=== PATIENT | male | born 1970 | race Caucasian/White ===

== ENCOUNTER 2020-09-19 10:20 | Inpatient (IN) | payer OTHER ==
[2020-09-19] MEDS ORDERED: NICOTINE 21MG/24HR PATCH TRANSDERM STA (11:03)
[2020-09-19 11:24] LABS: Amphetamine Screen,Urine Not Detected (NotDetected); Barbiturate Screen,Urine Not Detected (NotDetected); Benzodiazepines Screen,Urine Not Detected (NotDetected); Cocaine Screen,Urine Not Detected (NotDetected); Methadone Screen, Urine Not Detected (NotDetected); Opiate Screen,Urine Not Detected (NotDetected); Oxycodone Screen, Urine Not Detected (NotDetected); Phencyclidine Screen,Urine Not Detected (NotDetected); Tricyclic Antidepressant,Urine Not Detected (NotDetected); Urn Cannabinoid Scrn Not Detected (NotDetected)
[2020-09-19] MEDS ORDERED: SODIUM CHLORIDE 0.9% 1,000 ML with MVI, ADULT NO.4 WITH VIT K 10 ML, THIAMINE 100 MG, F... IV ONE ×4 (11:30)
[2020-09-19 11:38] LABS: Basophils # (A) 0.2 k/uL (0-0.2); Basophils % (A) 3 %; Eosinophils # (A) 0.1 k/uL (0-0.7); Eosinophils % (A) 2 %; HCT 49.8 % (39.0-53.0); HGB 17.7 gm/dL (13.0-17.5); Lymphocytes # (A) 1.2 k/uL (1.0-4.8); Lymphocytes % (A) 21 %; MCH 31.1 pg (25.0-35.0); MCHC 35.5 g/dL (31.0-37.0); MCV 87.4 fL (80.0-100.0); Mean Platelet Volume 6.1; Monocytes # (A) 0.5 k/uL (0-1.0); Monocytes % (A) 9 %; Neutrophils # (A) 3.4 k/uL (1.3-7.7); Neutrophils % (A) 61 %; Platelet Count 262 k/uL (150-450); RBC 5.69 m/uL (4.30-5.90); RDW 12.3 % (11.5-15.5); WBC 5.5 k/uL (3.8-10.6)
[2020-09-19 11:47] LABS: ALT 43 U/L (4-49); AST 69 U/L (17-59); African American GFR (CKD) >90 (>60 ml/min/1.73 sqM); Albumin 4.4 g/dL (3.5-5.0); Alkaline Phosphatase 96 U/L (38-126); Anion Gap 14 mmol/L; Blood Urea Nitrogen 9 mg/dL (9-20); Carbon Dioxide 26 mmol/L (22-30); Chloride 101 mmol/L (98-107); Creatine Kinase 271 U/L (55-170); Glucose 104 mg/dL (74-99); Lipase 191 U/L (23-300); Non-African American GFR(CKD) >90 (>60 ml/min/1.73 sqM); Potassium 4.3 mmol/L (3.5-5.1); Sodium 141 mmol/L (137-145); Total Bilirubin 0.7 mg/dL (0.2-1.3); Total Protein 7.4 g/dL (6.3-8.2)
[2020-09-19 11:59] LABS: Alcohol 370 mg/dL
[2020-09-19] MEDS ORDERED: NALOXONE 0.4 MG/ML 1 ML VIAL IV PRN (14:35)
--- NOTE | 2020-09-19 14:35 | ED ---
Psych HPI - General Chief Complaint: Psychiatric Symptoms Stated Complaint: Mental health Time Seen by Provider: 09/19/20 10:20 Source: patient, RN notes reviewed Mode of arrival: ambulatory - History of Present Illness Initial Comments: This is a 50-year-old male history of depression and alcoholism who was brought in for evaluation today. He states he suicidal he states he did try to strangle himself last night he was a cord but was unsuccessful. He states he is very depressed and admits to be an alcoholic and wants to stop drinking. He also is appreciated go through withdrawal as with a 2 or tobacco. No other complaints he denies any other drugs at this time. MD Complaint: suicidal ideation, feels depressed, other - Related Data Home Medications Medication Instructions Recorded Confirmed Albuterol Sulfate [Ventolin HFA] 1 - 2 puff INHALATION RT-Q6H PRN 09/19/20 09/19/20 Disulfiram [Antabuse] 250 mg PO DAILY 09/19/20 09/19/20 Ergocalciferol [Vitamin D2] 50,000 unit PO Q7D 09/19/20 09/19/20 Venlafaxine HCl ER [Effexor Xr] 150 mg PO DAILY 09/19/20 09/19/20 busPIRone HCl [Buspar] 10 mg PO BID 09/19/20 09/19/20 hydrOXYzine HCL [Atarax] 50 mg PO TID 09/19/20 09/19/20 Allergies Allergy/AdvReac Type Severity Reaction Status Date / Time No Known Allergies Allergy Verified 09/19/20 11:52 Review of Systems ROS Statement: Those systems with pertinent positive or pertinent negative responses have been documented in the HPI. ROS Other: All systems not noted in ROS Statement are negative. Past Medical History Past Medical History: No Reported History History of Any Multi-Drug Resistant Organisms: None Reported Past Surgical History: Hernia Repair, Orthopedic Surgery Past Psychological History: Anxiety, Depression Smoking Status: Former smoker Past Alcohol Use History: Abuse, Daily Past Drug Use History: None Reported, Methamphetamine General Exam - General Exam Comments Initial Comments: This a well-developed well-nourished awake alert though somewhat lethargic male he is tearful during the evaluation he does have the smell of alcohol conjoiners on his breath Limitations: no limitations General appearance: alert, lethargic Head exam: Present: atraumatic, normocephalic, normal inspection Eye exam: Present: normal appearance, PERRL, EOMI. Absent: scleral icterus, conjunctival injection, periorbital swelling ENT exam: Present: normal exam, mucous membranes moist Neck exam: Present: normal inspection. Absent: tenderness, meningismus, lymphadenopathy Respiratory exam: Present: normal lung sounds bilaterally. Absent: respiratory distress, wheezes, rales, rhonchi, stridor Cardiovascular Exam: Present: regular rate, normal rhythm, normal heart sounds. Absent: systolic murmur, diastolic murmur, rubs, gallop, clicks GI/Abdominal exam: Present: soft, normal bowel sounds. Absent: distended, tenderness, guarding, rebound, rigid Extremities exam: Present: normal inspection, full ROM, normal capillary refill. Absent: tenderness, pedal edema, joint swelling, calf tenderness Back exam: Present: normal inspection Neurological exam: Present: alert, oriented X3, CN II-XII intact Psychiatric exam: Present: depressed, flat affect, suicidal ideation Skin exam: Present: warm, dry, intact, normal color. Absent: rash Course Vital Signs 09/19/20 10:38 Temperature 98.8 F Pulse Rate 97 Respiratory 18 Rate Blood Pressure 139/87 O2 Sat by Pulse 95 Oximetry Medical Decision Making - Medical Decision Making Patient initially had a bad level they're indicated intoxication he did demonstrate a markedly elevated alcohol level and lab workup. I did discuss the case with Dr. Reina patient be admitted for IV hydration and evaluation for potential withdrawal and psychiatric evaluation tomorrow. - Lab Data Result diagrams: 09/19/20 11:25 09/19/20 11:25 Lab Results 09/19/20 09/19/20 09/19/20 Range/Units 10:36 11:25 11:25 WBC 5.5 (3.8-10.6) k/uL RBC 5.69 (4.30-5.90) m/uL Hgb 17.7 H (13.0-17.5) gm/dL Hct 49.8 (39.0-53.0) % MCV 87.4 (80.0-100.0) fL MCH 31.1 (25.0-35.0) pg MCHC 35.5 (31.0-37.0) g/dL RDW 12.3 (11.5-15.5) % Plt Count 262 (150-450) k/uL MPV 6.1 Neutrophils % 61 % Lymphocytes % 21 % Monocytes % 9 % Eosinophils % 2 % Basophils % 3 % Neutrophils # 3.4 (1.3-7.7) k/uL Lymphocytes # 1.2 (1.0-4.8) k/uL Monocytes # 0.5 (0-1.0) k/uL Eosinophils # 0.1 (0-0.7) k/uL Basophils # 0.2 (0-0.2) k/uL Sodium 141 (137-145) mmol/L Potassium 4.3 (3.5-5.1) mmol/L Chloride 101 (98-107) mmol/L Carbon Dioxide 26 (22-30) mmol/L Anion Gap 14 mmol/L BUN 9 (9-20) mg/dL Creatinine 0.85 (0.66-1.25) mg/dL Est GFR (CKD-EPI)AfAm >90 (>60 ml/min/1.73 sqM) Est GFR (CKD-EPI)NonAf >90 (>60 ml/min/1.73 sqM) Glucose 104 H (74-99) mg/dL Calcium 9.0 (8.4-10.2) mg/dL Magnesium 2.0 (1.6-2.3) mg/dL Total Bilirubin 0.7 (0.2-1.3) mg/dL AST 69 H (17-59) U/L ALT 43 (4-49) U/L Alkaline Phosphatase 96 (38-126) U/L Creatine Kinase 271 H (55-170) U/L Total Protein 7.4 (6.3-8.2) g/dL Albumin 4.4 (3.5-5.0) g/dL Lipase 191 (23-300) U/L Urine Opiates Screen Not Detected (NotDetected) Ur Oxycodone Screen Not Detected (NotDetected) Urine Methadone Screen Not Detected (NotDetected) Ur Propoxyphene Screen Not Detected (NotDetected) Ur Barbiturates Screen Not Detected (NotDetected) U Tricyclic Antidepress Not Detected (NotDetected) Ur Phencyclidine Scrn Not Detected (NotDetected) Ur Amphetamines Screen Not Detected (NotDetected) U Methamphetamines Scrn Not Detected (NotDetected) U Benzodiazepines Scrn Not Detected (NotDetected) Urine Cocaine Screen Not Detected (NotDetected) U Marijuana (THC) Screen Not Detected (NotDetected) Serum Alcohol 370 H* mg/dL Disposition Clinical Impression: Depression, Suicidal ideation, Alcohol intoxication, Nicotine abuse, Dehydration Disposition: ADMITTED IP TO THIS [facility] Condition: Fair Referrals: None,Stated [Primary Care Provider] - 1-2 days
[2020-09-19] MEDS ORDERED: LORazepam 2 MG/ML INJ IV PRN (14:38)
[2020-09-19] MEDS ORDERED: THIAMINE 100 MG/ML 2 ML VIAL IM STA (14:38)
[2020-09-19] MEDS: LORazepam 2 MG/ML INJ IV PRN ×3 (14:46→20:37)
[2020-09-19] MEDS: SODIUM CHLORIDE 0.9% 1,000 ML IV SCH (14:49)
[2020-09-19] MEDS ORDERED: ALBUTEROL NEBULIZED 2.5 MG/3 ML INHALATION PRN (17:23)
--- NOTE | 2020-09-19 17:30 | P.HPIM ---
History of Present Illness H&P Date: 09/19/20 Chief Complaint: Suicidal, alcohol abuse The patient is a 50-year-old male with history of alcohol abuse depression states he was feeling more depressed and yesterday tried to hang himself. He states that this occurred at 1422 hrs. he tied a cord around his neck I was planning to strangle himself on the door however he became concerned that his brother would discover him so he did not go through with the action. He said he states that he drinks about 16-18 beers daily and the last time he tried to quit on his own and further was very difficult. He denied any seizures in the past. The patient presented to the emergency room he was noted to have an elevated alcohol level he was given a banana brought back and Ativan and hospitalized for further workup and management. He denies any nausea or vomiting any chest pain or shortness of breath. Review of Systems Complete review of system was done and negative unless stated above Past Medical History Past Medical History: No Reported History History of Any Multi-Drug Resistant Organisms: None Reported Past Surgical History: Hernia Repair, Orthopedic Surgery Past Psychological History: Anxiety, Depression Smoking Status: Former smoker Past Alcohol Use History: Abuse, Daily Past Drug Use History: None Reported, Methamphetamine Medications and Allergies Home Medications Medication Instructions Recorded Confirmed Type Albuterol Sulfate [Ventolin HFA] 1 - 2 puff INHALATION RT-Q6H PRN 09/19/20 09/19/20 History Disulfiram [Antabuse] 250 mg PO DAILY 09/19/20 09/19/20 History Ergocalciferol [Vitamin D2] 50,000 unit PO Q7D 09/19/20 09/19/20 History Venlafaxine HCl ER [Effexor Xr] 150 mg PO DAILY 09/19/20 09/19/20 History busPIRone HCl [Buspar] 10 mg PO BID 09/19/20 09/19/20 History hydrOXYzine HCL [Atarax] 50 mg PO TID 09/19/20 09/19/20 History Allergies Allergy/AdvReac Type Severity Reaction Status Date / Time No Known Allergies Allergy Verified 09/19/20 11:52 Physical Exam Vitals: Vital Signs Temp Pulse Resp BP Pulse Ox 09/19/20 14:49 103 H 18 125/71 95 09/19/20 10:38 98.8 F 97 18 139/87 95 Intake and Output 09/19/20 09/19/20 09/19/20 06:59 14:59 22:59 Other: Weight 83.915 kg - Constitutional General appearance: no acute distress - EENT Eyes: PERRLA - Respiratory Respiratory: bilateral: CTA - Cardiovascular Rhythm: regular - Gastrointestinal General gastrointestinal: normal bowel sounds - Integumentary Integumentary: flushed - Neurologic Neurologic: CNII-XII intact - Musculoskeletal Musculoskeletal: strength equal bilaterally - Psychiatric tremulous Psychiatric: A&O x's 3 Results CBC & Chem 7: 09/19/20 11:25 09/19/20 11:25 Labs: Abnormal Lab Results - Last 24 Hours (Table) 09/19/20 09/19/20 Range/Units 11:25 11:25 Hgb 17.7 H (13.0-17.5) gm/dL Glucose 104 H (74-99) mg/dL AST 69 H (17-59) U/L Creatine Kinase 271 H (55-170) U/L Serum Alcohol 370 H* mg/dL Assessment and Plan (1) Alcohol intoxication Narrative/Plan: Continue CIWA protocol, electrolyte repletion Current Visit: Yes Status: Acute Code(s): F10.929 - ALCOHOL USE, UNSPECIFIED WITH INTOXICATION, UNSPECIFIED SNOMED Code(s): 83247298 (2) Suicidal ideation Narrative/Plan: Patient how one-to-one sitter, suicide precautions, psychiatry to evaluate Current Visit: Yes Status: Acute Code(s): R45.851 - SUICIDAL IDEATIONS SNOMED Code(s): 8431113 (3) Nicotine abuse Narrative/Plan: Patient chews tobacco, nicotine. Patch when necessary as needed Current Visit: Yes Status: Acute Code(s): Z72.0 - TOBACCO USE SNOMED Code(s): 000358834 (4) Depression Narrative/Plan: Continue outpatient regiment await further input from psychiatry Current Visit: Yes Status: Acute Code(s): F32.9 - MAJOR DEPRESSIVE DISORDER, SINGLE EPISODE, UNSPECIFIED SNOMED Code(s): 57584364
[2020-09-19] MEDS: THIAMINE 100 MG TAB PO SCH (20:36)
[2020-09-19] MEDS: busPIRone HCl 10 MG TAB PO SCH (20:37)
[2020-09-20] MEDS: LORazepam 2 MG/ML INJ IV PRN ×4 (01:19→20:28)
[2020-09-20] MEDS: SODIUM CHLORIDE 0.9% 1,000 ML IV SCH ×2 (03:46→18:09)
[2020-09-20] MEDS: busPIRone HCl 10 MG TAB PO SCH ×2 (08:39→20:27)
[2020-09-20] MEDS: VENLAFAXINE HCL ER 150 MG CAP PO SCH (08:39)
[2020-09-20] MEDS: THIAMINE 100 MG TAB PO SCH ×2 (08:40→18:09)
[2020-09-20] MEDS ORDERED: ERGOCALCIFEROL 50,000 UNIT CAP PO SCH (09:00)
[2020-09-20] MEDS: NALTREXONE HCL 50 MG TAB PO SCH (11:08)
--- NOTE | 2020-09-20 11:36 | CONS ---
CONSULTATION DATE OF SERVICE: 09/20/2020 PURPOSE FOR CONSULTATION: Evaluate for alcohol use and depression issues. The patient made a suicide attempt. HISTORY OF PRESENTING ILLNESS: The patient is a 50-year-old male, he presented to the emergency room. He had tried on the day before in the afternoon to tie a cord around his neck to strangle himself. He got worried that his brother would discover him and so he did not go through with the action. He had been drinking and says he drank about 16-18 beers that led up to his coming to the ED. On admission, his alcohol level was 370. The patient gives a history of significant alcohol use throughout his adult life. He has had periods for up to 4 - 5 months where he has not drank. He said his last period of sobriety was in the summer of 2018. He had an accident June 29, 2019 where he fell off a ladder from about 20 feet. He broke his leg. He was on some pain medications in recovery. He then started drinking and got back into a regular daily drinking. He says that he can go periods of time where he does not drink, though if he even in a casual way, has 1 drink. He will start getting back into a very serious drinking or he can drink almost continuously for days. He said he will drink to where he will pass out and then wake up and continue to drink. He acknowledges that he has had significant stress issues relating to relationship problems. He was in a long distance relationship up until recently and said that relationship ended badly and may have been one significant factor leading to the suicide thinking he had. He said that he does not have thoughts of suicide, though when he drinks heavily some of the time, it can lead him into thinking that way. He has not had a past attempt to harm himself. He notes that he has been drinking since the around age 14 and started drinking in a more serious way in his early 20s. He notes that there was not alcohol issues in his immediate family, though his maternal grandfather was a heavy drinker. He also has an older brother who has alcohol issues as well. The patient denies use of marijuana or any other abusive substances. It is noted that the patient's living situation currently is uncertain. He had been living with his brother, though it is sounds as though the job he has versus where his brother lives was not a functional situation of late he had been living in a motel, though the rent he has paid ends on Wednesday. He is not sure what he will do after that. He indicates that 2 weeks ago he started in some individual counseling at [facility]. He says he has a very positive relationship with his counselor. He has started into some substance abuse treatment out an outpatient basis and says he wants to continue with that. We talked about the option of inpatient treatment, though he feels the outpatient situation is more positive for him. He was recently started on Effexor. His current dose is 150 mg a day. He does not feel that the medication has been helping him, though he tolerates the Effexor. Patient shared one significant grief issue he has had from early in his life when he was 10 years old, his 3-year-old cousin fell out of a second-story window and . The patient said that he was very attached to his cousin, more so than his own siblings and that he had tremendous grief from that which he believes was a factor leading him into drinking. since this admission. MENTAL STATUS EXAM: Patient was sitting up in bed. He gave fair eye contact, he was restless. It was noteworthy that he has significant tremor in his hands and arms. He answered questions with brief responses, then he would go on and talk extensively about issues in his personal life. His affect was anxious. Mood depressed, he was significantly distressed. There was no indication of thought disorder. He denied thoughts of harm at the time of the interview and said that he does not have any intent to harm himself other than when serious drinking comes into the picture. He was oriented and alert. ASSESSMENT: This 50-year-old male is diagnosed with alcohol dependence and acute alcohol withdrawal. He may also have underlying depression. I had an extensive discussion with the patient regarding alcohol withdrawal issues. I gave him a handout on the process of withdrawal expectations and time course of withdrawal, had also included a range of behavioral issues to help him manage early withdrawal. I will start the patient on naltrexone 50 mg a day. The patient did express interest in getting started on Vivitrol. He intends to continue with his outpatient counseling services. He will continue his medical admission for acute withdrawal. The patient's vital signs for the most part have been stable in the normal range with vital signs this morning including BP 129/86, pulse 87 and regular, temperature 98.4, respirations 16, oxygen saturation 96. MMODL / IJN: [id number] /
--- NOTE | 2020-09-20 15:00 | P.PN ---
Subjective Progress Note Date: 09/20/20 Objective - Vital Signs Vital signs: Vital Signs Temp 98 F 09/20/20 14:00 Pulse 69 09/20/20 14:00 Resp 16 09/20/20 14:00 BP 142/91 09/20/20 14:00 Pulse Ox 95 09/20/20 14:00 Intake & Output 09/19/20 09/20/20 09/20/20 18:59 06:59 18:59 Intake Total 1180 Output Total 0 Balance 1180 Weight 83.915 kg 83.915 kg Intake: Intake, IV Titration 940 Amount Sodium Chloride 0.9% 1, 300 000 ml @ 100 mls/hr IV . Q10H7M ONE with Mvi, Adult No.4 with Vit K 10 ml with Thiamine 100 mg with Folic Acid 1 mg Rx#: [id number] Sodium Chloride 0.9% 1, 640 000 ml @ 80 mls/hr IV . [id number] ALEXANDER Rx#:[id number] Oral 240 Output: Urine 0 - Constitutional General appearance: Present: no acute distress - Respiratory Respiratory: bilateral: CTA - Cardiovascular Rhythm: regular - Gastrointestinal General gastrointestinal: Present: normal bowel sounds - Integumentary Integumentary: Present: normal - Neurologic Neurologic Comment(s): Tremulous - Psychiatric Psychiatric Comment(s): Feeling jittery - Labs CBC & Chem 7: 09/19/20 11:25 09/19/20 11:25 Assessment and Plan (1) Alcohol intoxication Narrative/Plan: Alcohol withdrawal syndrome complaining of nausea today continue CIWA protocol Current Visit: Yes Status: Acute Code(s): F10.929 - ALCOHOL USE, UNSPECIFIED WITH INTOXICATION, UNSPECIFIED SNOMED Code(s): 13477324 (2) Suicidal ideation Narrative/Plan: Appreciate psychiatry input he states the patient is no longer suicidal he will have outpatient follow-up Current Visit: Yes Status: Acute Code(s): R45.851 - SUICIDAL IDEATIONS SNOMED Code(s): 7573806 (3) Nicotine abuse Narrative/Plan: The patient was counseled nicotine patch as needed patient has a history of chewing tobacco Current Visit: Yes Status: Acute Code(s): Z72.0 - TOBACCO USE SNOMED Code(s): 028048095 (4) Depression Current Visit: Yes Status: Acute Code(s): F32.9 - MAJOR DEPRESSIVE DISORDER, SINGLE EPISODE, UNSPECIFIED SNOMED Code(s): 02264013
[2020-09-21] MEDS: LORazepam 2 MG/ML INJ IV PRN ×6 (01:46→20:17)
[2020-09-21] MEDS: busPIRone HCl 10 MG TAB PO SCH ×2 (09:08→20:16)
[2020-09-21] MEDS: THIAMINE 100 MG TAB PO SCH ×2 (09:08→18:17)
[2020-09-21] MEDS: NALTREXONE HCL 50 MG TAB PO SCH (09:08)
[2020-09-21] MEDS: VENLAFAXINE HCL ER 150 MG CAP PO SCH (09:08)
[2020-09-21] MEDS: SODIUM CHLORIDE 0.9% 1,000 ML IV SCH ×2 (09:28→19:57)
[2020-09-21 12:35] LABS: African American GFR (CKD) 128.4 (60.0-200.0); BUN/Creat Ratio 11.43 Ratio (12.00-20.00); Calcium 8.9 mg/dL (8.7-10.3); Non-African American GFR(CKD) 110.8 (60.0-200.0); Potassium 3.9 mmol/L (3.5-5.5)
[2020-09-21 15:46] VITALS: RESP 18
[2020-09-22] MEDS: LORazepam 2 MG/ML INJ IV PRN ×6 (02:31→21:25)
[2020-09-22] MEDS: SODIUM CHLORIDE 0.9% 1,000 ML IV SCH ×2 (04:57→13:46)
[2020-09-22] MEDS: THIAMINE 100 MG TAB PO SCH ×2 (07:12→16:53)
[2020-09-22] MEDS: FOLIC ACID 1 MG TAB PO SCH (07:13)
[2020-09-22] MEDS: busPIRone HCl 10 MG TAB PO SCH ×2 (07:13→21:25)
[2020-09-22] MEDS: NALTREXONE HCL 50 MG TAB PO SCH (09:44)
[2020-09-22] MEDS: VENLAFAXINE HCL ER 150 MG CAP PO SCH (09:44)
[2020-09-22] MEDS ORDERED: LORazepam 2 MG/ML INJ IV PRN (11:13)
--- NOTE | 2020-09-22 14:49 | P.PN ---
Subjective Progress Note Date: 09/21/20 ([facility] er charting seen at 1230) Principal diagnosis: ETOH abuse Patient's 50-year-old male with past medical history who presented to the ER with complaints of suicidal ideation and alcohol intoxication. In the ER he underwent an extensive evaluation. His son have an alcohol level of 370. He was subsequently admitted for mental health evaluation and impending withdrawal. He was placed on CIWA protocol, thiamine, and folic acid. He was seen by mental health and determined appropriate for outpatient follow-up as he is no longer suicidal and alcohol was out of his system. He is also started on naltrexone to help with alcohol cravings. On the morning of 09/21 he continued to need IV Ativan. He was unsure of where he could live upon discharge. He was also asking for additional resources for alcohol abuse. Patient seen and examined at bedside. He reports increased anxiety and tremors. Denies any chest pain or shortness of breath. Reports headache. General: non toxic, no distress, appears at stated age Derm: warm, dry Head: atraumatic, normocephalic, symmetric Eyes: EOMI, no lid lag, anicteric sclera Mouth: no lip lesion, mucus membranes moist Cardiovascular: S1S2 reg, no murmur, positive posterior tibial pulse bilateral, Lungs: CTA bilateral, no rhonchi, no rales , no accessory muscle use Abdominal: soft, nontender to palpation, no guarding, no appreciable organomegaly Ext: no gross muscle atrophy, no edema, no contractures Neuro: CN II-XI grossly intact, no focal neuro deficits, appears to have a tremor with arms outstretched however when he places your hand under his tremor dissipated, he reports that he palms however this is not verified on physical exam Psych: Alert, oriented, stuporous affect and unable to maintain appropriate eye contact, quickly falls back asleep Alcohol withdrawal -CIWA protocol -Thiamine and folic acid -Decrease Ativan dosing as patient appears partially sedated Alcohol abuse -Cessation -Social work to give patient resources Depression -Seen by psychiatry and cleared for discharge -Continue with [facility] and [facility] Patient informed that he will be discharged tomorrow on that he needs to find a place to stay or he will be discharged to the long term. DVT prophylaxis: SCDs Discussed with: patient Anticipated discharge: in AM Anticipated discharge place: home A total of 25 minutes was spent on the care of this complex patient more than 50% of the time was spent in counseling and care coordination. Objective - Vital Signs Vital signs: Vital Signs Temp 98.4 F 09/21/20 14:00 Pulse 71 09/21/20 14:00 Resp 18 09/21/20 14:00 BP 141/92 09/21/20 14:00 Pulse Ox 95 09/21/20 14:00 Intake & Output 09/21/20 09/21/20 09/22/20 06:59 18:59 06:59 Intake Total 640 640 Balance 640 640 Intake: IV 640 Sodium Chloride 0.9% 1, 640 000 ml @ 80 mls/hr IV . [id number] ALEXANDER Rx#:[id number] Intake, IV Titration 640 Amount Sodium Chloride 0.9% 1, 640 000 ml @ 80 mls/hr IV . [id number] ALEXANDER Rx#:[id number] Other: Voiding Method Urinal Urinal # Voids 1 - Labs CBC & Chem 7: 09/19/20 11:25 09/21/20 08:19 Labs: Abnormal Lab Results - Last 24 Hours (Table) 09/21/20 Range/Units 08:19 BUN 8.0 L (9.0-27.0) mg/dL BUN/Creatinine Ratio 11.43 L (12.00-20.00) Ratio
--- NOTE | 2020-09-22 15:00 | P.PN ---
Subjective Progress Note Date: 09/22/20 (ozzy limon seen at 1130) Principal diagnosis: ETOH abuse Patient's 50-year-old male with past medical history who presented to the ER with complaints of suicidal ideation and alcohol intoxication. In the ER he underwent an extensive evaluation. His son have an alcohol level of 370. He was subsequently admitted for mental health evaluation and impending withdrawal. He was placed on CIWA protocol, thiamine, and folic acid. He was seen by mental health and determined appropriate for outpatient follow-up as he is no longer suicidal and alcohol was out of his system. He is also started on naltrexone to help with alcohol cravings. On the morning of 09/21 he continued to need IV Ativan. He was unsure of where he could live upon discharge. He was also asking for additional resources for alcohol abuse. Patient seen and examined at bedside. His main complaint continues to be anxiety. + tremors, + nauseam + facial pain that radiates to his head, General: non toxic, no distress, appears at stated age Derm: warm, dry Head: atraumatic, normocephalic, symmetric Eyes: EOMI, no lid lag, anicteric sclera Mouth: no lip lesion, mucus membranes moist Cardiovascular: S1S2 reg, no murmur, positive posterior tibial pulse bilateral, Lungs: CTA bilateral, no rhonchi, no rales , no accessory muscle use Abdominal: soft, nontender to palpation, no guarding, no appreciable organomegaly Ext: no gross muscle atrophy, no edema, no contractures Neuro: CN II-XI grossly intact, no focal neuro deficits, appears to have a tremor with arms outstretched however when he places your hand under his tremor dissipated Psych: Alert, oriented, stuporous affect and unable to maintain appropriate eye contact, quickly falls back asleep Alcohol withdrawal -CIWA protocol -Thiamine and folic acid -Decrease Ativan dosing again -naltrexone Alcohol abuse -Cessation -Social work to give patient resources Depression -Seen by psychiatry and cleared for discharge -Continue with [facility] Patient informed that he will be discharged tomorrow on that he needs to find a place to stay or he will be discharged to the custodial. DVT prophylaxis: SCDs Discussed with: patient Anticipated discharge: in AM Anticipated discharge place: home A total of 25 minutes was spent on the care of this complex patient more than 50% of the time was spent in counseling and care coordination. Objective - Vital Signs Vital signs: Vital Signs Temp 97.9 F 09/22/20 08:00 Pulse 61 09/22/20 08:00 Resp 18 09/22/20 08:00 BP 126/78 09/22/20 08:00 Pulse Ox 95 09/22/20 08:00 Intake & Output 09/21/20 09/22/20 09/22/20 18:59 06:59 18:59 Intake Total 640 1440 Output Total 400 Balance 640 1440 -400 Intake: IV 640 Sodium Chloride 0.9% 1, 640 000 ml @ 80 mls/hr IV . [id number] ALEXANDER Rx#:[id number] Intake, IV Titration 960 Amount Sodium Chloride 0.9% 1, 960 000 ml @ 80 mls/hr IV . [id number] ALEXANDER Rx#:[id number] Oral 480 Output: Urine 400 Other: Voiding Method Urinal Urinal # Voids 2 - Labs CBC & Chem 7: 09/19/20 11:25 09/21/20 08:19
[2020-09-22 21:22] VITALS: TEMP 97.8
[2020-09-23] MEDS: SODIUM CHLORIDE 0.9% 1,000 ML IV SCH (05:13)
[2020-09-23 07:46] VITALS: BP 122/82; PULSE 71
[2020-09-23] MEDS: busPIRone HCl 10 MG TAB PO SCH (08:13)
[2020-09-23] MEDS: FOLIC ACID 1 MG TAB PO SCH (08:13)
[2020-09-23] MEDS: VENLAFAXINE HCL ER 150 MG CAP PO SCH (08:13)
[2020-09-23] MEDS: NALTREXONE HCL 50 MG TAB PO SCH (08:13)
[2020-09-23] MEDS: THIAMINE 100 MG TAB PO SCH (08:13)
--- NOTE | 2020-09-23 15:54 | P.DS ---
Providers Date of admission: 09/19/20 14:35 Expected date of discharge: 09/23/20 Attending physician: Margot Cain MD Consults: 09/19/20 14:36 Consult Physician Routine Consulting Provider: Elbert Kaur Consult Reason/Comments: Suicidal and depression Do you want consulting provider notified?: Yes, Notify in am Primary care physician: Stated None Hospital Course: Discharge Diagnosis: ETOH intoxic and then withdrawal ETOH abuse Depression, suicidal ideation cleared when alcohol level normalized. Hospital Course: Patient's 50-year-old male with past medical history who presented to the ER with complaints of suicidal ideation and alcohol intoxication. In the ER he underwent an extensive evaluation. His son have an alcohol level of 370. He was subsequently admitted for mental health evaluation and impending withdrawal. He was placed on CIWA protocol, thiamine, and folic acid. He was seen by mental health and determined appropriate for outpatient follow-up as he is no longer suicidal and alcohol was out of his system. He is also started on naltrexone to help with alcohol cravings. On the morning of 09/21 he continued to need IV Ativan. His ativan needs slowly decreased. He was determiend stable for discharge. [facility]. Patient seen and examined at bedside. No chest pain, no nausea, no vomiting. Still not feeling back to normal. Vital signs reviewed and stable. General: non toxic, no distress, appears at stated age Derm: warm, dry Head: atraumatic, normocephalic, symmetric Eyes: EOMI, no lid lag, anicteric sclera Mouth: no lip lesion, mucus membranes moist Cardiovascular: S1S2 reg, no murmur, positive posterior tibial pulse bilateral, Lungs: CTA bilateral, no rhonchi, no rales , no accessory muscle use Abdominal: soft, nontender to palpation, no guarding, no appreciable organomegaly Ext: no gross muscle atrophy, no edema, no contractures Neuro: CN II-XI grossly intact, no focal neuro deficits Psych: Alert, oriented, appropriate affect, no halluciantion, no tremors, no nausea. A total of 35 minutes of time were spent preparing this complex discharge summary . Patient Condition at Discharge: Fair Plan - Discharge Summary Discharge Rx Participant: No New Discharge Prescriptions: New RX: Folic Acid 1 mg PO DAILY #14 tab RX: Naltrexone HCl [Revia] 50 mg PO DAILY #14 tab RX: Thiamine [Vitamin B-1] 100 mg PO BID-W/MEALS #28 tab Continue RX: busPIRone HCl [Buspar] 10 mg PO BID RX: Venlafaxine HCl ER [Effexor XR] 150 mg PO DAILY RX: hydrOXYzine HCL [Atarax] 50 mg PO TID RX: Ergocalciferol [Vitamin D2 (DRISDOL)] 50,000 unit PO Q7D RX: Albuterol Sulfate [Ventolin HFA] 1 - 2 puff INHALATION RT-Q6H PRN PRN Reason: Shortness Of Breath Discontinued Disulfiram [Antabuse] 250 mg PO DAILY Discharge Medication List RX: Albuterol Sulfate [Ventolin HFA] 1 - 2 puff INHALATION RT-Q6H PRN 09/19/20 [History] RX: Ergocalciferol [Vitamin D2 (DRISDOL)] 50,000 unit PO Q7D 09/19/20 [History] RX: Venlafaxine HCl ER [Effexor XR] 150 mg PO DAILY 09/19/20 [History] RX: busPIRone HCl [Buspar] 10 mg PO BID 09/19/20 [History] RX: hydrOXYzine HCL [Atarax] 50 mg PO TID 09/19/20 [History] RX: Folic Acid 1 mg PO DAILY #14 tab 09/23/20 [Rx] RX: Naltrexone HCl [Revia] 50 mg PO DAILY #14 tab 09/23/20 [Rx] RX: Thiamine [Vitamin B-1] 100 mg PO BID-W/MEALS #28 tab 09/23/20 [Rx] Follow up Appointment(s)/Referral(s): [facility] - 1 Week (Please call office to shiela hagan appointment) Patient Instructions/Handouts: Depression (DC), Abuse of Alcohol (DC) Activity/Diet/Wound Care/Special Instructions: Activity: as tolerated Diet: regular Special Instructions: You will need a primary care physician to keep you nalrextone going to help with Alcohol cravings. Discharge Disposition: HOME SELF-CARE
== END 2020-09-23 15:07 | disposition home or self-care (01) | DRG 897 ==
LOC: EC 10:20 → 6NMEDSUR 14:35 → 4SSUR 15:16
PROVIDERS: ADMIT Internal Medicine; ATTEND Internal Medicine
DX: F10.229 Alcohol dependence with intoxication, unspecified (principal); R45.851 Suicidal ideations; E86.0 Dehydration; Y90.8 Blood alcohol level of 240 mg/100 ml or more; F32.9 Major depressive disorder, single episode, unspecified; F41.9 Anxiety disorder, unspecified; F17.210 Nicotine dependence, cigarettes, uncomplicated; Z79.899 Other long term (current) drug therapy; Z98.890 Other specified postprocedural states
CPT/HCPCS: 36415; 80048; 80053; 80306; 80320; 82075; 82550; 83690; 83735; 85025; 96365; 96366; 96372; 96375; 96376; 99285

== ENCOUNTER 2021-04-28 17:07 | Emergency (ER) | payer OTHER ==
[2021-04-28] MEDS ORDERED: ASPIRIN 81 MG PO STA (17:43)
[2021-04-28] MEDS ORDERED: SODIUM CHLORIDE 0.9% 1,000 ML IV STA (17:43)
[2021-04-28] MEDS ORDERED: ONDANSETRON 4 MG/2 ML VIAL IVP STA (17:43)
[2021-04-28] MEDS ORDERED: LORazepam 2 MG/ML INJ IV PRN ×2 (17:44)
[2021-04-28] MEDS ORDERED: KETOROLAC 15 MG/ML 1 ML VIAL IVP STA (17:44)
[2021-04-28] MEDS ORDERED: THIAMINE 100 MG/ML 2 ML VIAL IM STA (17:44)
--- NOTE | 2021-04-28 18:09 | ED ---
General Adult HPI - General Source: patient, EMS, RN notes reviewed, old records reviewed Mode of arrival: EMS <Gage Li - Last Filed: 04/28/21 23:40> <Beltran Parkinson - Last Filed: 04/29/21 12:12> - General Chief complaint: Psychiatric Symptoms Stated complaint: CHest Pain Time Seen by Provider: 04/28/21 17:17 - History of Present Illness Initial comments: Patient is a 50-year-old male with past medical history remarkable for chronic alcohol abuse, anxiety, depression, psychiatric history, alcohol withdrawals presents emergency department after being seen in psychiatry clinic earlier today. Patient endorses drinking alcohol today. He also endorses left-sided chest pain that is nonradiating that has resolved since earlier. This causes a sharp achy sensation that is present when he becomes nervous. He is also endorsing nausea and vomiting every morning. Denies any current abdominal pain, chest pain. Denies any dyspnea. States he is currently drunk. He has gone through alcohol withdrawals in the past. He does endorse some mild shaking right now. Patient endorses suicidal ideations, but denies attempts or plans. Patient denies any homicidal ideations, attempts, plans. Patient denies any visual or auditory hallucinations. Patient presents for psychiatric evaluation and evaluation of his chest pain. (Gage Li) - Related Data Home Medications Medication Instructions Recorded Confirmed Venlafaxine HCl [Effexor XR] 75 mg PO DAILY 04/28/21 04/28/21 Allergies Allergy/AdvReac Type Severity Reaction Status Date / Time No Known Allergies Allergy Verified 04/28/21 19:33 Review of Systems ROS Other: All systems not noted in ROS Statement are negative. <aGge Li - Last Filed: 04/28/21 23:40> ROS Other: All systems not noted in ROS Statement are negative. <Beltran Parkinson - Last Filed: 04/29/21 12:12> ROS Statement: Those systems with pertinent positive or pertinent negative responses have been documented in the HPI. Review of Systems: CONST: Denies fever EYES: Denies blurry vision ENT: Denies nasal congestion C/V: Denies current chest pain RESP: Denies shortness of breath GI: Denies abdominal pain : Denies dysuria SKIN: Denies rash. MSK: Denies joint pain. NEURO: Denies headache PSYCH: Denies homicidal ideations/plans/attempts. Denies visual or auditory hallucinations. Endorses suicidal ideation as well as plan to jump in the river. Denies attempts. (Gage Li) Past Medical History Past Medical History: No Reported History History of Any Multi-Drug Resistant Organisms: None Reported Past Surgical History: Hernia Repair, Orthopedic Surgery Past Psychological History: Anxiety, Depression Smoking Status: Never smoker Past Alcohol Use History: Abuse, Daily Past Drug Use History: None Reported, Methamphetamine <Gage Li - Last Filed: 04/28/21 23:40> General Exam <Gage Li - Last Filed: 04/28/21 23:40> - General Exam Comments Initial Comments: General: Appears acutely intoxicated but in no acute distress otherwise. HEAD: Normal with no signs of head trauma. EYES: PERRLA, EOMI, conjunctiva normal, no discharge. Pupils are 3 mm and equally reactive bilaterally. ENT: Hearing grossly intact, normal oropharynx. RESPIRATORY: Clear breath sounds bilaterally. No wheezes, rales, or rhonchi. C/V: Regular rate and rhythm. S1 and S2 auscultated, no edema, peripheral puls es 2+ and intact throughout ABD: Abd is soft, nontender, nondistended EXT: Normal range of motion, no obvious deformity SKIN: No rashes or lesions observed on exposed skin. NEURO: Alert and oriented x 4. Cranial nerves II-XII intact. No focal sensory or strength deficits. Patient appears intoxicated with alcohol. He has mild hand tremors. (Gage Li) Course <Beltran Parkinson - Last Filed: 04/29/21 12:12> Vital Signs 04/28/21 04/28/21 04/29/21 17:16 22:03 06:27 Temperature 97.9 F 97.6 F Pulse Rate 83 88 60 Respiratory 20 16 16 Rate Blood Pressure 148/106 138/94 125/82 O2 Sat by Pulse 96 98 96 Oximetry 04/29/21 07:31 Temperature 98.6 F Pulse Rate 67 Respiratory 18 Rate Blood Pressure 120/65 O2 Sat by Pulse 92 L Oximetry - Reevaluation(s) Reevaluation #1: 04/29/21 12:05 The patient was seen and evaluated by the EPS service stated he plan is in place he will be discharged he'll also be placed on medication for alcohol withdrawal. (Beltran Parkinson) Medical Decision Making - Lab Data Result diagrams: 04/28/21 18:33 04/28/21 18:33 - EKG Data -: EKG Interpreted by Me <Gage Li - Last Filed: 04/28/21 23:40> - Lab Data Result diagrams: 04/28/21 18:33 04/28/21 18:33 <Beltran Parkinson - Last Filed: 04/29/21 12:12> - Medical Decision Making Based on the patient's presentation and physical exam, he does appear acutely intoxicated with alcohol is expressing suicidal ideations. Therefore patient will be placed in green scrubs. He is complaining of chest pain and therefore we he will obtain a cardiac workup. This includes troponin, basic labs, EKG, chest x-ray. He will be medically treated with by mouth last as well as IV Zofran, 1 L fluid bolus. Patient does have mild tremors, possibly early onset of a cultural will therefore be admission Ativan and Ativan order set for withdrawal will be ordered with [facility] protocol. Patient will be placed on continuous cardiac monitoring. Patient's EKG was normal without any signs of acute ischemia. Chest x-ray revealed no acute cardiopulmonary process. Laboratory studies are remarkable fo r a mildly low white count of 3.4. The remainder of the labs are unremarkable. Patient does have very mildly elevated LFTs of 131 and 98. Patient is acutely intoxicated with alcohol level 337. At this time the patient is medically clear. He is otherwise asymptomatic. He is not in extreme withdrawals at this time but Ativan withdrawal protocol is ordered. Disposition is pending psychiatric evaluation following sobriety. (Gage Li) - Lab Data Lab Results 04/28/21 04/28/21 04/28/21 Range/Units 18:33 18:33 18:33 WBC 3.4 L (3.8-10.6) k/uL RBC 4.93 (4.30-5.90) m/uL Hgb 15.3 (13.0-17.5) gm/dL Hct 46.4 (39.0-53.0) % MCV 94.1 (80.0-100.0) fL MCH 31.0 (25.0-35.0) pg MCHC 33.0 (31.0-37.0) g/dL RDW 15.1 (11.5-15.5) % Plt Count 187 (150-450) k/uL MPV 6.5 Neutrophils % (Manual) 44 % Lymphocytes % (Manual) 42 % Monocytes % (Manual) 13 % Eosinophils % (Manual) 1 % Neutrophils # (Manual) 1.50 (1.3-7.7) k/uL Lymphocytes # (Manual) 1.43 (1.0-4.8) k/uL Monocytes # (Manual) 0.44 (0-1.0) k/uL Eosinophils # (Manual) 0.03 (0-0.7) k/uL Nucleated RBCs 0 (0-0) /100 WBC Manual Slide Review Performed Poikilocytosis (manual Present PT 9.8 (9.0-12.0) sec INR 0.9 (<1.2) APTT 22.5 (22.0-30.0) sec Sodium (137-145) mmol/L Potassium (3.5-5.1) mmol/L Chloride (98-107) mmol/L Carbon Dioxide (22-30) mmol/L Anion Gap mmol/L BUN (9-20) mg/dL Creatinine (0.66-1.25) mg/dL Est GFR (CKD-EPI)AfAm (>60 ml/min/1.73 sqM) Est GFR (CKD-EPI)NonAf (>60 ml/min/1.73 sqM) Glucose (74-99) mg/dL Calcium (8.4-10.2) mg/dL Magnesium (1.6-2.3) mg/dL Total Bilirubin (0.2-1.3) mg/dL AST (17-59) U/L ALT (4-49) U/L Alkaline Phosphatase (38-126) U/L Troponin I (0.000-0.034) ng/mL Total Protein (6.3-8.2) g/dL Albumin (3.5-5.0) g/dL Lipase (23-300) U/L Urine Opiates Screen Not Detected (NotDetected) Ur Oxycodone Screen Not Detected (NotDetected) Urine Methadone Screen Not Detected (NotDetected) Ur Propoxyphene Screen Not Detected (NotDetected) Ur Barbiturates Screen Not Detected (NotDetected) U Tricyclic Antidepress Not Detected (NotDetected) Ur Phencyclidine Scrn Not Detected (NotDetected) Ur Amphetamines Screen Not Detected (NotDetected) U Methamphetamines Scrn Not Detected (NotDetected) U Benzodiazepines Scrn Not Detected (NotDetected) Urine Cocaine Screen Not Detected (NotDetected) U Marijuana (THC) Screen Not Detected (NotDetected) Serum Alcohol mg/dL 04/28/21 04/28/21 Range/Units 18:33 18:33 WBC (3.8-10.6) k/uL RBC (4.30-5.90) m/uL Hgb (13.0-17.5) gm/dL Hct (39.0-53.0) % MCV (80.0-100.0) fL MCH (25.0-35.0) pg MCHC (31.0-37.0) g/dL RDW (11.5-15.5) % Plt Count (150-450) k/uL MPV Neutrophils % (Manual) % Lymphocytes % (Manual) % Monocytes % (Manual) % Eosinophils % (Manual) % Neutrophils # (Manual) (1.3-7.7) k/uL Lymphocytes # (Manual) (1.0-4.8) k/uL Monocytes # (Manual) (0-1.0) k/uL Eosinophils # (Manual) (0-0.7) k/uL Nucleated RBCs (0-0) /100 WBC Manual Slide Review Poikilocytosis (manual PT (9.0-12.0) sec INR (<1.2) APTT (22.0-30.0) sec Sodium 145 (137-145) mmol/L Potassium 4.3 (3.5-5.1) mmol/L Chloride 108 H (98-107) mmol/L Carbon Dioxide 25 (22-30) mmol/L Anion Gap 12 mmol/L BUN 7 L (9-20) mg/dL Creatinine 0.66 (0.66-1.25) mg/dL Est GFR (CKD-EPI)AfAm >90 (>60 ml/min/1.73 sqM) Est GFR (CKD-EPI)NonAf >90 (>60 ml/min/1.73 sqM) Glucose 101 H (74-99) mg/dL Calcium 9.0 (8.4-10.2) mg/dL Magnesium 1.9 (1.6-2.3) mg/dL Total Bilirubin 0.3 (0.2-1.3) mg/dL AST 131 H (17-59) U/L ALT 98 H (4-49) U/L Alkaline Phosphatase 87 (38-126) U/L Troponin I <0.012 (0.000-0.034) ng/mL Total Protein 7.5 (6.3-8.2) g/dL Albumin 4.6 (3.5-5.0) g/dL Lipase 254 (23-300) U/L Urine Opiates Screen (NotDetected) Ur Oxycodone Screen (NotDetected) Urine Methadone Screen (NotDetected) Ur Propoxyphene Screen (NotDetected) Ur Barbiturates Screen (NotDetected) U Tricyclic Antidepress (NotDetected) Ur Phencyclidine Scrn (NotDetected) Ur Amphetamines Screen (NotDetected) U Methamphetamines Scrn (NotDetected) U Benzodiazepines Scrn (NotDetected) Urine Cocaine Screen (NotDetected) U Marijuana (THC) Screen (NotDetected) Serum Alcohol 337 H* mg/dL - EKG Data EKG Comments: 12-lead Electrocardiogram Interpretation Note EKG was reviewed and interpreted by myself. 12-lead ECG performed at 1723 is interpreted by me as revealing normal sinus rhythm at a rate of 81 beats per minute. Morton is normal. [place] interval is 126 seconds, QRS duration is 84 ms, QTc is 443 ms.. There were no ST or T wave abnormalities to suggest myocardial ischemia or injury. R wave progression across the precordium was satisfactory. By my interpretation this EKG is non-diagnostic for acute ischemia. Repeat EKG was performed by nursing as well as they were uncertain if the initial was completed. 12-lead Electrocardiogram Interpretation Note EKG was reviewed and interpreted by myself. 12-lead ECG performed at 1845 is interpreted by me as revealing normal sinus rhythm at a rate of 77 beats per minute. Morton is normal. [place] interval is 122 ms, QRS duration is 86 seconds, QTC is 454 ms.. There were no ST or T wave abnormalities to suggest myocardial ischemia or injury. R wave progression across the precordium was satisfactory. By my interpretation this EKG is non-diagnostic for acute ischemia. (Gage Li) Disposition <Gage Li - Last Filed: 04/28/21 23:40> Is patient prescribed a controlled substance at d/c from ED?: No <Beltran Parkinson - Last Filed: 04/29/21 12:12> Clinical Impression: Suicidal ideation, Alcohol intoxication, Adjustment reaction of adult life Disposition: HOME SELF-CARE Condition: Good Instructions (If sedation given, give patient instructions): Alcohol Use Dis order (ED), Alcohol Dependence (ED) Referrals: Steffanie Rooney MD [Primary Care Provider] - 1-2 days
[2021-04-28 18:41] LABS: HCT 46.4 % (39.0-53.0); HGB 15.3 gm/dL (13.0-17.5); MCV 94.1 fL (80.0-100.0); Mean Platelet Volume 6.5; Platelet Count 187 k/uL (150-450); RBC 4.93 m/uL (4.30-5.90); RDW 15.1 % (11.5-15.5); WBC 3.4 k/uL (3.8-10.6)
[2021-04-28 18:51] LABS: Amphetamine Screen,Urine Not Detected (NotDetected); Barbiturate Screen,Urine Not Detected (NotDetected); Benzodiazepines Screen,Urine Not Detected (NotDetected); Cocaine Screen,Urine Not Detected (NotDetected); Methadone Screen, Urine Not Detected (NotDetected); Opiate Screen,Urine Not Detected (NotDetected); Oxycodone Screen, Urine Not Detected (NotDetected); Phencyclidine Screen,Urine Not Detected (NotDetected); Tricyclic Antidepressant,Urine Not Detected (NotDetected); Urn Cannabinoid Scrn Not Detected (NotDetected)
[2021-04-28 18:52] LABS: ALT 98 U/L (4-49); AST 131 U/L (17-59); African American GFR (CKD) >90 (>60 ml/min/1.73 sqM); Albumin 4.6 g/dL (3.5-5.0); Alkaline Phosphatase 87 U/L (38-126); Anion Gap 12 mmol/L; Blood Urea Nitrogen 7 mg/dL (9-20); Carbon Dioxide 25 mmol/L (22-30); Chloride 108 mmol/L (98-107); Glucose 101 mg/dL (74-99); Lipase 254 U/L (23-300); Magnesium 1.9 mg/dL (1.6-2.3); Non-African American GFR(CKD) >90 (>60 ml/min/1.73 sqM); Potassium 4.3 mmol/L (3.5-5.1); Sodium 145 mmol/L (137-145); Total Bilirubin 0.3 mg/dL (0.2-1.3); Total Protein 7.5 g/dL (6.3-8.2)
[2021-04-28 18:55] LABS: INR 0.9 (<1.2); Partial Thromboplastin Time 22.5 sec (22.0-30.0); Prothrombin Time 9.8 sec (9.0-12.0)
[2021-04-28 19:03] LABS: Alcohol 337 mg/dL
[2021-04-28 19:14] LABS: Eosinophils # (M) 0.03 k/uL (0-0.7); Lymphocytes # (M) 1.43 k/uL (1.0-4.8); Monocytes # (M) 0.44 k/uL (0-1.0); Neutrophils % (M) 44 %; Nucleated Red Blood Cells 0 /100 WBC (0-0); Total Cells Counted 100
[2021-04-28 19:15] LABS: Poikilocytosis (M) Present
--- NOTE | 2021-04-28 19:26 | XR ---
EXAMINATION TYPE: XR chest 2V DATE OF EXAM: 04/28/2021 COMPARISON: NONE HISTORY: Chest pain TECHNIQUE: 2 view FINDINGS: Heart and mediastinum are normal. Lungs are clear. Diaphragm is normal. Bony thorax appears normal. There are chest leads. IMPRESSION: Normal chest.
[2021-04-28] MEDS: LORazepam 2 MG/ML INJ IV PRN (20:08)
[2021-04-29] MEDS ORDERED: THIAMINE 100 MG TAB PO SCH (07:30)
[2021-04-29 07:32] VITALS: RESP 18
[2021-04-29] MEDS: LORazepam 2 MG/ML INJ IV PRN (07:36)
[2021-04-29 12:42] VITALS: BP 131/81; PULSE 84; TEMP 99
== END 2021-04-29 12:29 | disposition home or self-care (01) ==
LOC: EC 17:07
DX: R45.851 Suicidal ideations (principal); F10.129 Alcohol abuse with intoxication, unspecified; F43.20 Adjustment disorder, unspecified; F32.9 Major depressive disorder, single episode, unspecified; F41.9 Anxiety disorder, unspecified; F15.90 Other stimulant use, unspecified, uncomplicated; Y90.8 Blood alcohol level of 240 mg/100 ml or more
CPT/HCPCS: 82075; 36415; 93005; 80053; 83690; 83735; 84484; 85025; 85610; 85730; 80306; 71046; 96374; 96375 ×2; 96372; 96361; 99285; G0480; J2060 ×2; J3411; J2405; J1885; 80320

== ENCOUNTER 2021-07-04 23:35 | Emergency (ER) | payer OTHER ==
[2021-07-05] MEDS ORDERED: SODIUM CHLORIDE 0.9% 500 ML 500 ML IV STA (00:16)
[2021-07-05 00:26] VITALS: BP 135/91; RESP 18; TEMP 98
[2021-07-05 00:53] VITALS: PULSE 75
[2021-07-05 00:59] LABS: Basophils # (A) 0.1 k/uL (0-0.2); Basophils % (A) 2 %; Eosinophils # (A) 0.1 k/uL (0-0.7); Eosinophils % (A) 2 %; HCT 46.2 % (39.0-53.0); HGB 15.2 gm/dL (13.0-17.5); Lymphocytes # (A) 1.2 k/uL (1.0-4.8); Lymphocytes % (A) 25 %; MCH 32.4 pg (25.0-35.0); MCHC 32.9 g/dL (31.0-37.0); MCV 98.4 fL (80.0-100.0); Monocytes # (A) 0.5 k/uL (0-1.0); Monocytes % (A) 9 %; Neutrophils # (A) 2.9 k/uL (1.3-7.7); Neutrophils % (A) 60 %; Platelet Count 181 k/uL (150-450); RDW 13.5 % (11.5-15.5); WBC 4.8 k/uL (3.8-10.6)
[2021-07-05 01:10] LABS: ALT 69 U/L (4-49); AST 87 U/L (17-59); African American GFR (CKD) >90 (>60 ml/min/1.73 sqM); Albumin 4.8 g/dL (3.5-5.0); Alkaline Phosphatase 143 U/L (38-126); Anion Gap 16 mmol/L; Blood Urea Nitrogen 10 mg/dL (9-20); Calcium 9.9 mg/dL (8.4-10.2); Carbon Dioxide 21 mmol/L (22-30); Chloride 106 mmol/L (98-107); Glucose 110 mg/dL (74-99); Lipase 257 U/L (23-300); Magnesium 1.8 mg/dL (1.6-2.3); Non-African American GFR(CKD) >90 (>60 ml/min/1.73 sqM); Potassium 4.5 mmol/L (3.5-5.1); Sodium 143 mmol/L (137-145); Total Bilirubin 0.5 mg/dL (0.2-1.3); Total Protein 8.1 g/dL (6.3-8.2)
--- NOTE | 2021-07-05 01:19 | XR ---
EXAMINATION TYPE: XR chest 2V DATE OF EXAM: 07/05/2021 COMPARISON: 04/28/2021 HISTORY: Chest pain TECHNIQUE: 2 views FINDINGS: Heart and mediastinum are normal. Lungs are clear. Diaphragm is normal. Bony thorax is inta ct. IMPRESSION: Normal chest. No change.
[2021-07-05 01:23] LABS: Alcohol 385 mg/dL
[2021-07-05 01:27] LABS: INR 0.9 (<1.2); Prothrombin Time 9.6 sec (9.0-12.0)
--- NOTE | 2021-07-05 03:06 | ED ---
Chest Pain HPI - General Chief Complaint: Chest Pain Stated Complaint: ETOH, Chest Pain Time Seen by Provider: 07/04/21 23:45 Source: patient, EMS Mode of arrival: EMS Limitations: no limitations - History of Present Illness Initial Comments: 50-year-old male presents to the emergency department with a chief complaint of chest pain and alcohol intoxication. Patient reports he has history of alcohol abuse and had about 10 beers earlier today. Patient reports also been experiencing chest pain in the midsternal region and feels that there is an elephant sitting on his chest. He denies any associated shortness of breath. States the pain seems to be more exertional in nature and alleviated at rest. He reports not seeing a perishable fruit inspector recently. Patient also reports that he is anxious. Patient states that he likes to stop drinking but is unable to due to withdrawals. He denies any further complaints. - Related Data Home Medications Medication Instructions Recorded Confirmed Venlafaxine HCl [Effexor XR] 75 mg PO DAILY 04/28/21 04/28/21 Allergies Allergy/AdvReac Type Severity Reaction Status Date / Time No Known Allergies Allergy Verified 04/28/21 19:33 Review of Systems ROS Statement: Those systems with pertinent positive or pertinent negative responses have been documented in the HPI. ROS Other: All systems not noted in ROS Statement are negative. EKG Findings - EKG Comments: EKG Findings:: Sinus rhythm. Ventricular rate 94,. 120, QRS 84, QTC 450. Past Medical History Past Medical History: No Reported History Additional Past Medical History / Comment(s): ETOH abuse History of Any Multi-Drug Resistant Organisms: None Reported Past Surgical History: Hernia Repair, Orthopedic Surgery Additional Past Surgical History / Comment(s): eye surgery at 12 years, left inguinal hernia repair Past Psychological History: Anxiety, Depression Smoking Status: Never smoker Past Alcohol Use History: Abuse, Daily Past Drug Use History: None Reported, Methamphetamine General Exam Limitations: no limitations General appearance: alert, in no apparent distress Head exam: Present: atraumatic, normocephalic, normal inspection Eye exam: Present: normal appearance Pupils: Present: normal accommodation ENT exam: Present: normal exam, normal oropharynx, mucous membranes dry, TM's normal bilaterally, normal external ear exam Neck exam: Present: normal inspection, full ROM. Absent: tenderness Respiratory exam: Present: normal lung sounds bilaterally. Absent: respiratory distress Cardiovascular Exam: Present: regular rate, normal rhythm, normal heart sounds. Absent: systolic murmur Extremities exam: Present: normal inspection, full ROM, normal capillary refill, other (Palpable DP and PT bilaterally.). Absent: tenderness Back exam: Present: normal inspection, full ROM Neurological exam: Present: alert, oriented X3 Psychiatric exam: Present: normal affect, normal mood Skin exam: Present: warm, dry, intact, normal color Course Vital Signs 07/05/21 07/05/21 00:07 00:46 Temperature 98.0 F Pulse Rate 77 Pulse Rate [ 75 Remediation Consultant ] Respiratory 18 Rate Blood Pressure 135/91 O2 Sat by Pulse 95 Oximetry Chest Pain MDM - MDM 50-year-old male presents to emergency department with a chief complaint alcohol intoxication and chest pain. On physical examination, patient has dry mucous membranes. Rest of physical exam is unremarkable. CBC and her Andrea. CMP reveals transaminitis. Initial troponins are negative. Coags within normal limits. Blood alcohol is 380. Chest x-ray is unremarkable. I advised the patient to remain in the hospital for alcohol withdrawal management. I also wanted him to be evaluated by cardiology. However, patient refused and wanted to sign out AMA. Patient eloped before he can sign any AMA paperwork. Disposition Clinical Impression: Alcohol intoxication, Chest pain Disposition: Left Against Medical Advice Is patient prescribed a controlled substance at d/c from ED?: No Referrals: Steffanie Rooney MD [Primary Care Provider] - 1-2 days Time of Disposition: 00:07
== END 2021-07-05 02:20 | disposition left against medical advice (07) ==
LOC: EC 23:35
DX: F10.129 Alcohol abuse with intoxication, unspecified (principal); R07.9 Chest pain, unspecified; R74.01 Elevation of levels of liver transaminase levels; Y90.8 Blood alcohol level of 240 mg/100 ml or more
CPT/HCPCS: 36415; 80053; 83690; 83735; 84484; 85025; 85610; 71046; 99285; G0480; 80320

== ENCOUNTER → 2021-07-25 | Outpatient (CLI) | payer OTHER ==
--- NOTE | 2021-07-25 18:44 | XR ---
EXAMINATION TYPE: XR cervical spine comp, XR lumbosacral spine min 4V DATE OF EXAM: 07/25/2021 TECHNIQUE: Frontal, lateral, oblique, swimmers, and open mouth view of the cervical spine are obtaine d. Frontal, lateral, bilateral oblique, and lateral cone-down view of the lumbosacral junction were o btained of the lumbar spine. HISTORY: Neck pain and back pain COMPARISON: None FINDINGS: CERVICAL SPINE: Cervical vertebral body heights and alignment are maintained. Odontoid process appears intact. Atlant odental interval appears within normal limits. Moderate degenerative disc changes at C5-6. Minimal multilevel facet arthropathy. Multilevel uncovert ebral hypertrophy causing mild bony neural foraminal narrowing bilaterally most pronounced at the lev el of C5-6. Prevertebral soft tissues appear within normal limits. LUMBAR SPINE: 5 lumbar type vertebral bodies. Lumbar vertebral body heights and alignment are maintained. No spondylolisthesis or spondylolysis. Mild multilevel degenerative disc changes with osteophyte formation and minimal disc height loss. Mil d facet arthropathy at L4-5 and L5-S1. IMPRESSION: 1. Moderate degenerative changes at C5-6 with mild bilateral bony neural foraminal narrowing. 2. Mild multilevel degenerative changes of the lumbar spine.
== END | disposition home or self-care (01) ==
LOC: RADXRMAIN 15:41
PROVIDERS: ATTEND Family Medicine
DX: M47.812 Spondylosis without myelopathy or radiculopathy, cervical region (principal); M47.816 Spondylosis without myelopathy or radiculopathy, lumbar region
CPT/HCPCS: 72050; 72110

== ENCOUNTER 2021-08-30 14:22 | Observation (INO) | payer OTHER ==
[2021-08-30] MEDS ORDERED: KETOROLAC 30 MG/ML 1 ML VIAL IVP STA (15:24)
[2021-08-30 15:45] LABS: Basophils # (A) 0.1 k/uL (0-0.2); Basophils % (A) 1 %; Eosinophils % (A) 0 %; HCT 48.5 % (39.0-53.0); HGB 16.8 gm/dL (13.0-17.5); Lymphocytes # (A) 0.8 k/uL (1.0-4.8); Lymphocytes % (A) 17 %; MCH 32.7 pg (25.0-35.0); MCHC 34.6 g/dL (31.0-37.0); MCV 94.6 fL (80.0-100.0); Mean Platelet Volume 7.2; Monocytes # (A) 0.3 k/uL (0-1.0); Monocytes % (A) 7 %; Neutrophils # (A) 3.2 k/uL (1.3-7.7); Neutrophils % (A) 72 %; Platelet Count 146 k/uL (150-450); RBC 5.12 m/uL (4.30-5.90); RDW 12.9 % (11.5-15.5); WBC 4.5 k/uL (3.8-10.6)
--- NOTE | 2021-08-30 15:56 | XR ---
EXAMINATION TYPE: XR chest 2V DATE OF EXAM: 08/30/2021 COMPARISON: 07/05/2021 HISTORY: Chest pain TECHNIQUE: FINDINGS: Heart and mediastinum are normal. Lungs are clear. Diaphragm is normal. Bony thorax is inta ct. IMPRESSION: Normal chest. No change.
[2021-08-30 16:06] LABS: ALT 48 U/L (4-49); AST 85 U/L (17-59); African American GFR (CKD) >90 (>60 ml/min/1.73 sqM); Albumin 4.9 g/dL (3.5-5.0); Alkaline Phosphatase 86 U/L (38-126); Anion Gap 18 mmol/L; Blood Urea Nitrogen 10 mg/dL (9-20); Carbon Dioxide 19 mmol/L (22-30); Chloride 98 mmol/L (98-107); Glucose 106 mg/dL (74-99); Lipase 150 U/L (23-300); Magnesium 1.7 mg/dL (1.6-2.3); Non-African American GFR(CKD) >90 (>60 ml/min/1.73 sqM); Potassium 4.1 mmol/L (3.5-5.1); Sodium 135 mmol/L (137-145); Total Bilirubin 0.9 mg/dL (0.2-1.3); Total Protein 8.2 g/dL (6.3-8.2)
[2021-08-30 16:09] LABS: INR 0.9 (<1.2); Partial Thromboplastin Time 23.1 sec (22.0-30.0); Prothrombin Time 9.7 sec (9.0-12.0)
[2021-08-30 16:25] LABS: Alcohol 372 mg/dL
--- NOTE | 2021-08-30 17:02 | ED ---
Chest Pain HPI - General Chief Complaint: Chest Pain Stated Complaint: chest pain Time Seen by Provider: 08/30/21 14:50 Source: patient, EMS Mode of arrival: EMS Limitations: no limitations - History of Present Illness Initial Comments: 51-year-old male with history of alcohol abuse presents emergency department with reported chest pain. States that the pain is over the left side of his chest wall without radiation. Has been present for the past 6-7 days. Denies any provocative factors. Not reproducible with palpation. States that he did have a cardiac catheterization was 3 years ago. Patient has not followed with a [employer] principal since. Denies history of coronary disease. Admits to associated shortness of breath. No diaphoresis. Patient does have low-grade temp upon arrival. Denies sick contacts. Patient not Covid vaccinated. Denies productive cough. No other alleviating, precipitating or modifying factors - Related Data Home Medications Medication Instructions Recorded Confirmed Venlafaxine HCl [Effexor XR] 75 mg PO DAILY 04/28/21 08/30/21 Albuterol Inhaler [Ventolin Hfa 1 puff INHALATION RT-Q4H PRN 08/30/21 08/30/21 Inhaler] methocarbamoL [Methocarbamol] 500 mg PO BID PRN 08/30/21 08/30/21 Previous Rx's Medication Instructions Recorded HYDROcodone/APAP 5-325MG [[place] 1 each PO Q6HR PRN tab 09/01/21 5-325] LORazepam [Ativan] 1 mg PO BID PRN 3 Days #6 tab 09/01/21 Metoprolol Tartrate [Lopressor] 25 mg PO BID #60 tab 09/01/21 Pantoprazole [Protonix] 40 mg PO BID 14 Days #28 tab 09/01/21 Thiamine [Vitamin B-1] 100 mg PO BID-W/MEALS #60 tab 09/01/21 chlordiazePOXIDE HCl [Librium] See Taper PO BID 7 Days #16 capsule 09/01/21 Allergies Allergy/AdvReac Type Severity Reaction Status Date / Time No Known Allergies Allergy Verified 04/28/21 19:33 Review of Systems ROS Statement: Those systems with pertinent positive or pertinent negative responses have been documented in the HPI. ROS Other: All systems not noted in ROS Statement are negative. EKG Findings - EKG Comments: EKG Findings:: KD demonstrates a sinus tachycardia with a ventricular rate of 1 02. OR interval 122. QRS 86. QTC of 456. No acute ST segment elevations. Mild ST depression in aVL Past Medical History Past Medical History: No Reported History Additional Past Medical History / Comment(s): ETOH abuse History of Any Multi-Drug Resistant Organisms: None Reported Past Surgical History: Hernia Repair, Orthopedic Surgery Additional Past Surgical History / Comment(s): eye surgery at 12 years, left inguinal hernia repair Past Psychological History: Anxiety, Depression Smoking Status: Never smoker Past Alcohol Use History: Abuse, Daily Past Drug Use History: None Reported, Methamphetamine General Exam Limitations: no limitations General appearance: alert, in no apparent distress Head exam: Present: atraumatic, normocephalic, normal inspection Eye exam: Present: normal appearance, PERRL, EOMI. Absent: scleral icterus, conjunctival injection, periorbital swelling ENT exam: Present: normal exam, mucous membranes moist Neck exam: Present: normal inspection. Absent: tenderness, meningismus, lymphadenopathy Respiratory exam: Present: normal lung sounds bilaterally. Absent: respiratory distress, wheezes, rales, rhonchi, stridor Cardiovascular Exam: Present: regular rate, normal rhythm, normal heart sounds. Absent: systolic murmur, diastolic murmur, rubs, gallop, clicks GI/Abdominal exam: Present: soft, normal bowel sounds. Absent: distended, tenderness, guarding, rebound, rigid Extremities exam: Present: normal inspection, full ROM, normal capillary refill. Absent: tenderness, pedal edema, joint swelling, calf tenderness Back exam: Present: normal inspection Neurological exam: Present: alert, oriented X3, CN II-XII intact Psychiatric exam: Present: normal affect, normal mood Skin exam: Present: warm, dry, intact, normal color. Absent: rash Course Vital Signs 08/30/21 08/30/21 08/30/21 14:51 15:01 16:50 Temperature 99.2 F Pulse Rate 99 91 Respiratory 20 20 Rate Blood Pressure 156/112 145/93 143/87 O2 Sat by Pulse 95 94 L Oximetry Chest Pain MDM - MDM Upon arrival patient was placed to room 21. A thorough history and physical exam was performed. IV is established laboratory studies were conducted. Chest x-rays performed. D-dimer negative. Troponin negative. Alcohol 372. Opiate is not detected. Chest x-ray demonstrates no findings. I did recommend admission to the hospital in order to trend his troponins. I did speak with Dr. Ray. Concerned for left lingular pna. She given a dose of Rocephin. He does request that the patient over for a noncontrasted CT which demonstrates no acute findings. Patient agreed to admission. Remained in stable condition awaiting bed Disposition Clinical Impression: Alcohol intoxication, Chest pain Disposition: ADMITTED IP TO THIS HOSP Condition: Fair Is patient prescribed a controlled substance at d/c from ED?: No Decision to Admit Reason: Admit from EC Decision Date: 08/30/21 Decision Time: 17:03
[2021-08-30] MEDS ORDERED: NALOXONE 0.4 MG/ML 1 ML VIAL IV PRN (17:03)
[2021-08-30] MEDS ORDERED: cefTRIAXone IN SWFI 1,000 MG/10 ML SYRINGE IVP STA (17:08)
--- NOTE | 2021-08-30 17:49 | CT ---
EXAMINATION TYPE: CT chest wo con DATE OF EXAM: 08/30/2021 COMPARISON: None HISTORY: SOB CT DLP: 328.5 mGycm Automated exposure control for dose reduction was used. Images obtained from the thoracic inlet to the diaphragm with no contrast. The lungs are clear of consolidation. There is no evidence of a pulmonary mass. There is no pleural e ffusion. Heart size is normal. There is no pericardial effusion. There is no mediastinal adenopathy. There are no hilar masses. Thoracic vertebra have normal alignment. Posterior elements are intact. There is no compression fract ure. Sternum is intact. There is diffuse fatty infiltration of the liver. IMPRESSION: Negative CT scan of the chest. No suspicious pulmonary mass. Normal heart. Fatty infiltration of the liver.
[2021-08-30] MEDS: SODIUM CHLORIDE 0.9% 1,000 ML IV SCH (17:54)
[2021-08-30] MEDS ORDERED: ALBUTEROL NEBULIZED 2.5 MG/3 ML INHALATION PRN (19:28)
[2021-08-30] MEDS ORDERED: HYDROcodone/APAP 5-325MG 1 EACH TAB PO PRN (19:39)
[2021-08-30] MEDS ORDERED: cloNIDine HCL 0.1 MG TAB PO PRN (20:46)
[2021-08-30] MEDS: cloNIDine HCL 0.1 MG TAB PO SCH (21:29)
[2021-08-30] MEDS: methocarbamoL 500 MG TAB PO PRN (21:30)
[2021-08-30] MEDS ORDERED: THIAMINE 100 MG/ML 2 ML VIAL IM STA (21:52)
[2021-08-30] MEDS ORDERED: LORazepam 2 MG/ML INJ IV PRN (21:52)
--- NOTE | 2021-08-30 22:37 | HP ---
HISTORY AND PHYSICAL DATE OF SERVICE: 08/30/2021 CHIEF COMPLAINT: Chest pain, alcohol intoxication as well as fever. HISTORY OF PRESENT ILLNESS: This 51-year-old gentleman with a past medical history of significant alcohol intake, history of hernia repair, history of DJD, being followed by Dr. Steffanie Rooney in the outpatient setting, was apparently drinking alcohol significantly and the patient was having some chest pain felt in the anterior part of chest without any relation to exertion which was radiating, and the patient also had some fever. The pain was mostly on the left side and the patient was admitted for further evaluation and treatment. Alcohol level was found to be 372. COVID-19 is negative. The patient has some mild hyponatremia. CT scan chest showed no evidence of pneumonia. The patient received one dose of antibiotics in the ER and patient was admitted for further evaluation. There is no history of any headache, loss of consciousness or seizures. PAST MEDICAL HISTORY: History of EtOH, history of hernia repair, history of DJD. HOME MEDICATIONS: Methocarbamol, Effexor and albuterol p.r.n. ALLERGIES: NONE. FAMILY HISTORY: No history of heart disease or strokes in the family. SOCIAL HISTORY: History of daily alcohol abuse. The patient recently got fired from his job and the patient has trouble paying rent, according to him. No history of smoking. REVIEW OF SYSTEMS: ENT: No diminished hearing. No diminished vision. CARDIOVASCULAR SYSTEM: As mentioned earlier. RESPIRATORY SYSTEM: As mentioned earlier. GI: No nausea, vomiting, diarrhea. : No dysuria. NERVOUS SYSTEM: No numbness, weakness. ALLERGY/IMMUNOLOGY: No asthma or hay fever. MUSCULOSKELETAL: As mentioned earlier. HEMATOLOGY/ONCOLOGY: No history of anemia. ENDOCRINE: As mentioned earlier. CONSTITUTIONAL: As mentioned earlier. DERMATOLOGY: As mentioned earlier. RHEUMATOLOGY: Negative. PHYSICAL EXAMINATION: Patient alert and oriented x3. Pulse is 94, blood pressure 153/110, respirations 16, temperature 98.7, pulse ox 92% on room air. HEENT: Conjunctivae normal. NECK: No jugular venous distention. CARDIOVASCULAR: S1, S2 muffled. RESPIRATION: Breath sounds diminished at the bases. No rhonchi. No crackles. ABDOMEN: Soft, nontender. No mass palpable. LEGS: No edema. No swelling. NERVOUS SYSTEM: Higher functions as mentioned earlier. Moves all 4 limbs. No focal motor or sensory deficit. LYMPHATICS: No lymph node palpable in neck, axillae or groin. SKIN: No ulcer, rash, bleeding. JOINTS: No active deforming arthropathy. LABS: WBC 4.5, platelets are 140, sodium 130. Other labs are noted. ASSESSMENT: 1. Chest pain for evaluation. Possible unstable angina, possibly musculoskeletal. 2. Acute alcohol intoxication. 3. Fever, possible acute bronchitis. 4. Thrombocytopenia. 5. Hyponatremia. 6. Hypertension. 7. Increased random blood sugar. 8. Increased AST with mild alcoholic hepatitis. 9. History of hernia surgery. 10.History of degenerative joint disease. 11.History of anxiety, depression. 12.FULL CODE. RECOMMENDATIONS AND DISCUSSION: In this 51-year-old gentleman who presented with multiple complex medical issues, we will monitor the patient closely, observe CIWA protocol. Symptomatic treatment. Cardiology consultation. Otherwise, I would recommend repeat labs and we will continue the dose of Rocephin and clonidine for hypertension. Further recommendations to follow. Supplement vitamins. Repeat labs. I recommend alcohol cessation advice and alcohol rehab also as an outpatient. MMODL / IJN: [id number] /
[2021-08-31] MEDS: LORazepam 2 MG/ML INJ IV PRN ×6 (02:13→21:12)
[2021-08-31] MEDS: THIAMINE 100 MG TAB PO SCH ×2 (08:01→16:20)
[2021-08-31] MEDS: cloNIDine HCL 0.1 MG TAB PO SCH ×2 (08:02→20:36)
[2021-08-31] MEDS: VENLAFAXINE HCL ER 75 MG CAP PO SCH (08:02)
[2021-08-31] MEDS: SODIUM CHLORIDE 0.9% 1,000 ML IV SCH (08:14)
--- NOTE | 2021-08-31 10:56 | P.CRDCN ---
History of Present Illness History of present illness: HISTORY OF PRESENTING ILLNESS This is a pleasant 51-year-old male past medical history significant for daily alcohol abuse. 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 We have been asked to see in consultation for S pain. States he has been having chest pain, described as sharp at times and then pressure at times. Occurred while he was sitting doing nothing. No radiation. Associated with some shortness of breath. No diaphroesis, nausea or palpitations. Lasted off and on for the last 2-3 weeks. Intensified this week. Admits to daily alcohol intake, approximately 12 beers per day. Also chews tobacco. He states approximately 3 years ago he had been evaluated in a hospital [place], unsure which one. At that time he underwent cardiac catheterization that he states was normal. Exact details are unavailable. DIAGNOSTICS EKG reveals sinus tachycardia heart rate of 102. Telemetry tracings indicate sinus rhythm. Chest xray negative for an acute cardiopulmonary process. CT chest unremarkable. Laboratory reviewed, WBC 4.5, hemoglobin 16.8, platelets 146, d-dimer 0.47, sodium 135, potassium 4.1, creatinine 0.69, magnesium 1.7, cardiac enzymes negative 3, and T proBNP 27 and alcohol level CCCLXXII. He takes no daily cardiac medications. REVIEW OF SYSTEMS At the time of my exam: CONSTITUTIONAL: Denies fever or chills. CARDIOVASCULAR: Denies chest pain, shortness of breath, orthopnea, PND or palpitations. RESPIRATORY: Denies cough. GASTROINTESTINAL: Denies abdominal pain, diarrhea, constipation, nausea or vomiting. MUSCULOSKELETAL: Denies myalgias. NEUROLOGIC: Denies numbness, tingling, headache or weakness. ENDOCRINE: Denies fatigue, weight change, polydipsia or polyurina. GENITOURINARY: Denies burning, hematuria or urgency with micturation. HEMATOLOGIC: Denies history of anemia or bleeding. PHYSICAL EXAMINATION Blood pressure 151/85 heart rate D8 afebrile and maintaining oxygen saturation on room air. CONSTITUTIONAL: No apparent distress. HEENT: Head is normocephalic. Pupils are equal, round. Sclerae anicteric. Mucous membranes of the mouth are moist. No JVD. No carotid bruit. CHEST EXAMINATION: Lungs are clear to auscultation. No chest wall tenderness is noted on palpation or with deep breathing. HEART EXAMINATION: Regular rate and rhythm. S1, S2 heard. No murmurs, gallops or rub. ABDOMEN: Soft, nontender. EXTREMITIES: 2+ peripheral pulses, no lower extremity edema and no calf tenderness. NEUROLOGIC EXAMINATION: Patient is awake, alert and oriented x3. ASSESSMENT Chest pain, atypical Acute alcohol intoxication with impending withdrawal History of alcohol abuse PLAN An acute coronary event has been ruled out. Pain is atypical for angina. Suggest metoprolol 25 mg twice a day. Given normal catheterization 3 years ago we will not pursue any further workup as an inpatient. Suggest complete alcohol cessation. Thank you kindly for this consultation. Nurse Practitioner note has been reviewed, I agree with a documented findings and plan of care. Patient was seen and examined. Past Medical History Past Medical History: No Reported History Additional Past Medical History / Comment(s): ETOH abuse History of Any Multi-Drug Resistant Organisms: None Reported Past Surgical History: Hernia Repair, Orthopedic Surgery Additional Past Surgical History / Comment(s): eye surgery at 12 years, left inguinal hernia repair Past Anesthesia/Blood Transfusion Reactions: No Reported Reaction Past Psychological History: Anxiety, Depression Smoking Status: Never smoker Past Alcohol Use History: Abuse, Daily Past Drug Use History: None Reported, Methamphetamine Medications and Allergies Home Medications Medication Instructions Recorded Confirmed Type Venlafaxine HCl [Effexor XR] 75 mg PO DAILY 04/28/21 08/30/21 History Albuterol Inhaler [Ventolin Hfa 1 puff INHALATION RT-Q4H PRN 08/30/21 08/30/21 History Inhaler] methocarbamoL [Methocarbamol] 500 mg PO BID PRN 08/30/21 08/30/21 History Allergies Allergy/AdvReac Type Severity Reaction Status Date / Time No Known Allergies Allergy Verified 04/28/21 19:33 Physical Exam Vitals: Vital Signs Temp Pulse Pulse Resp BP BP Pulse Ox 08/31/21 07:00 98.3 F 68 18 151/85 96 08/31/21 02:06 98.3 F 73 16 109/70 95 08/30/21 19:42 18 08/30/21 18:38 98.7 F 94 16 153/100 92 L 08/30/21 16:50 91 20 143/87 94 L 08/30/21 15:01 145/93 08/30/21 14:51 99.2 F 99 20 156/112 95 Intake and Output 08/30/21 08/31/21 08/31/21 22:59 06:59 14:59 Intake Total 900 600 Balance 900 600 Intake: Intake, IV Titration 300 600 Amount Sodium Chloride 0.9% 1, 300 600 000 ml @ 75 mls/hr IV . [id number] ALEXANDER Rx#:[id number] Oral 600 Other: # Voids 2 Weight 74.843 kg Results 08/30/21 15:32 08/30/21 15:32 Cardiac Enzymes 08/30/21 08/30/21 08/30/21 Range/Units 15:32 15:32 19:32 AST 85 H (17-59) U/L Troponin I <0.012 <0.012 (0.000-0.034) ng/mL 08/30/21 Range/Units 22:45 AST (17-59) U/L Troponin I <0.012 (0.000-0.034) ng/mL Coagulation 08/30/21 Range/Units 15:32 PT 9.7 (9.0-12.0) sec APTT 23.1 (22.0-30.0) sec CBC 08/30/21 Range/Units 15:32 WBC 4.5 (3.8-10.6) k/uL RBC 5.12 (4.30-5.90) m/uL Hgb 16.8 (13.0-17.5) gm/dL Hct 48.5 (39.0-53.0) % Plt Count 146 L (150-450) k/uL Comprehensive Metabolic Panel 08/30/21 Range/Units 15:32 Sodium 135 L (137-145) mmol/L Potassium 4.1 (3.5-5.1) mmol/L Chloride 98 (98-107) mmol/L Carbon Dioxide 19 L (22-30) mmol/L BUN 10 (9-20) mg/dL Creatinine 0.69 (0.66-1.25) mg/dL Glucose 106 H (74-99) mg/dL Calcium 9.0 (8.4-10.2) mg/dL AST 85 H (17-59) U/L ALT 48 (4-49) U/L Alkaline Phosphatase 86 (38-126) U/L Total Protein 8.2 (6.3-8.2) g/dL Albumin 4.9 (3.5-5.0) g/dL Current Medications Generic Name Dose Route Start Last Admin Trade Name Freq PRN Reason Stop Dose Admin Hydrocodone Bitart/Acetaminophen 1 each 08/30/21 19:39 08/30/21 20:35 Hydrocodone/Apap 5-325mg 1 Each Tab PO 1 each Q6HR PRN Administration Pain Albuterol Sulfate 2.5 mg 08/30/21 19:28 Albuterol Nebulized 2.5 Mg/3 Ml INHALATION RT-Q4H PRN Shortness Of Breath Clonidine 0.1 mg 08/30/21 20:46 Clonidine Hcl 0.1 Mg Tab PO Q4HR PRN Hypertension Clonidine 0.1 mg 08/30/21 21:00 08/31/21 08:02 Clonidine Hcl 0.1 Mg Tab PO 0.1 mg BID ALEXANDER Administration Sodium Chloride 1,000 mls @ 75 mls/hr 08/30/21 17:15 08/31/21 08:14 Saline 0.9% IV 75 mls/hr .[id number] ALEXANDER Administration Ceftriaxone Sodium 1 gm/ 50 mls @ 100 mls/hr 08/31/21 09:00 08/31/21 08:02 Sodium Chloride IVPB 100 mls/hr Q24HR ALEXANDER Administration Lorazepam 1 mg 08/30/21 21:52 08/31/21 07:49 Lorazepam 2 Mg/Ml Inj IV 1 mg Q2HR PRN Administration CIWA 8 or 9 Lorazepam 1 mg 08/30/21 21:52 Lorazepam 2 Mg/Ml Inj IV Q1HR PRN CIWA 10 to 15 Lorazepam 2 mg 08/30/21 21:52 Lorazepam 2 Mg/Ml Inj IV 09/01/21 21:52 Q10M PRN CIWA 16 or higher Methocarbamol 500 mg 08/30/21 20:46 08/30/21 21:30 Methocarbamol 500 Mg Tab PO 500 mg BID PRN Administration Muscle Spasm Naloxone HCl 0.2 mg 08/30/21 17:03 Naloxone 0.4 Mg/Ml 1 Ml Vial IV Q2M PRN Opioid Reversal Thiamine HCl 100 mg 08/31/21 07:30 08/31/21 08:01 Thiamine 100 Mg Tab PO 100 mg BID-W/MEALS ALEXANDER Administration Venlafaxine HCl 75 mg 08/31/21 09:00 08/31/21 08:02 Venlafaxine Hcl Er 75 Mg Cap PO 75 mg DAILY ALEXANDER Administration Intake and Output 08/30/21 08/31/21 08/31/21 22:59 06:59 14:59 Intake Total 900 600 Balance 900 600 Intake: Intake, IV Titration 300 600 Amount Sodium Chloride 0.9% 1, 300 600 000 ml @ 75 mls/hr IV . [id number] ALEXANDER Rx#:[id number] Oral 600 Other: # Voids 2 Weight 74.843 kg 08/30/21 15:32 08/30/21 15:32
[2021-08-31] MEDS: METOPROLOL TARTRATE 25 MG TAB PO SCH ×2 (11:07→20:45)
[2021-08-31 12:25] LABS: Basophils # (A) 0.05 X 10*3/uL (0.00-0.10); Basophils % (A) 1.3 %; Eosinophils # (A) 0.04 X 10*3/uL (0.04-0.35); HCT 45.1 % (39.6-50.0); HGB 15.8 g/dL (13.0-17.0); Lymphocytes % (A) 20.2 %; MCH 32.4 pg (27.0-32.0); MCV 92.4 fL (80.0-97.0); Mean Platelet Volume 9.4 fL (9.5-12.2); Monocytes # (A) 0.47 X 10*3/uL (0.20-1.00); Monocytes % (A) 11.8 %; Neutrophils % (A) 65.4 %; Platelet Count 115 X 10*3/uL (140-440); RBC 4.88 X 10*6/uL (4.40-5.60); RDW 12.2 % (11.5-14.5); WBC 3.97 X 10*3/uL (4.50-10.00)
[2021-08-31 13:04] LABS: African American GFR (CKD) 135.9 (60.0-200.0); Anion Gap 18.3 mmol/L (4.00-12.00); BUN/Creat Ratio 15.67 Ratio (12.00-20.00); Blood Urea Nitrogen 9.4 mg/dL (9.0-27.0); Calcium 8.8 mg/dL (8.7-10.3); Carbon Dioxide 19.7 mmol/L (21.6-31.8); Non-African American GFR(CKD) 117.2 (60.0-200.0); Potassium 4.1 mmol/L (3.5-5.5)
[2021-08-31] MEDS ORDERED: 1: THIAMINE 100 MG, FOLIC ACID 1 MG in SODIUM CHLORIDE 0.9% 1,000 ML 2: SODIUM CHLORIDE IVPB SCH (19:00)
--- NOTE | 2021-08-31 20:09 | PN ---
PROGRESS NOTE DATE OF SERVICE: 08/31/2021 This 51-year-old gentleman was admitted with chest pain, alcohol intoxication, intoxication as well as fever. The patient is being closely monitored. The patient also tremulous at this time. No chest pain. No palpitations. No fever. PHYSICAL EXAMINATION: Alert and oriented x3. Pulse is 69, blood pressure 147/88, respiration 18, temperature 98.2, pulse ox 98% on room air. HEENT: Conjunctivae normal. Oral mucosa moist. NECK: No jugular venous distention. No lymph node enlargement. CARDIOVASCULAR: S1, S2, muffled. No S3, no S4, RESPIRATORY: Diminished breath sounds at the bases. A few scattered rhonchi. ABDOMEN: Soft, nontender. LEGS: No edema, no swelling. NERVOUS SYSTEM: Diffusely weak and tremors also present. LABS: WBC 3.9, hemoglobin 15.8, sodium 135, potassium 4.1 and glucose is 59. Alcohol is 372. ASSESSMENT: 1. Chest pain for evaluation, possible unstable angina, possibly musculoskeletal. 2. Acute alcohol intoxication. 3. Acute delirium tremens. 4. Fever, possible bronchitis. 5. Thrombocytopenia. 6. Hyponatremia. 7. Hypertension. 8. Increased random blood sugar. 9. Increased AST with mild alcoholic hepatitis. 10.History of hernia surgery. 11.History of DJD. 12.History of anxiety, depression. 13.FULL CODE. RECOMMENDATIONS AND DISCUSSION: I recommend to continue current medications. Repeat labs. Otherwise, we will continue with DT precautions. We will monitor the blood sugars closely. Guarded prognosis. Further recommendations to follow. Change the IV fluids to ( ) bag. MAGGIE / JENNIFERN: [id number] /
[2021-08-31] MEDS: methocarbamoL 500 MG TAB PO PRN (21:10)
[2021-09-01] MEDS: LORazepam 2 MG/ML INJ IV PRN ×2 (01:42→01:50)
[2021-09-01] MEDS: VENLAFAXINE HCL ER 75 MG CAP PO SCH (07:26)
[2021-09-01] MEDS: METOPROLOL TARTRATE 25 MG TAB PO SCH (07:26)
[2021-09-01] MEDS: THIAMINE 100 MG TAB PO SCH (07:26)
[2021-09-01] MEDS: cloNIDine HCL 0.1 MG TAB PO SCH (07:26)
[2021-09-01 07:52] VITALS: BP 133/91; PULSE 68; RESP 17; TEMP 97.9
[2021-09-01 11:05] LABS: Basophils # (A) 0.04 X 10*3/uL (0.00-0.10); Basophils % (A) 0.8 %; Eosinophils # (A) 0.07 X 10*3/uL (0.04-0.35); Eosinophils % (A) 1.4 %; HCT 46.8 % (39.6-50.0); HGB 16.6 g/dL (13.0-17.0); Lymphocytes # (A) 0.76 X 10*3/uL (0.90-5.00); Lymphocytes % (A) 15.1 %; MCH 32.5 pg (27.0-32.0); MCHC 35.5 g/dL (32.0-37.0); MCV 91.8 fL (80.0-97.0); Monocytes # (A) 0.58 X 10*3/uL (0.20-1.00); Monocytes % (A) 11.6 %; Neutrophils # (A) 3.56 X 10*3/uL (1.80-7.70); Neutrophils % (A) 70.9 %; Platelet Count 118 X 10*3/uL (140-440); RDW 12.1 % (11.5-14.5); WBC 5.02 X 10*3/uL (4.50-10.00)
[2021-09-01 11:08] LABS: BUN/Creat Ratio 16.4 Ratio (12.00-20.00)
[2021-09-01 11:09] LABS: African American GFR (CKD) 127.9 (60.0-200.0); Anion Gap 14.8 mmol/L (4.00-12.00); Blood Urea Nitrogen 11.4 mg/dL (9.0-27.0); Calcium 9.3 mg/dL (8.7-10.3); Carbon Dioxide 23.2 mmol/L (21.6-31.8); Non-African American GFR(CKD) 110.4 (60.0-200.0); Potassium 3.7 mmol/L (3.5-5.5)
[2021-09-01] MEDS ORDERED: Potassium Replacement Protocol 1 EACH MISC MISCELLANE PRN (12:37)
[2021-09-01] MEDS ORDERED: POTASSIUM CHLORIDE ER 20 MEQ TAB.ER PO SCH (13:00)
--- NOTE | 2021-09-01 13:09 | P.DS ---
Providers Date of admission: 09/01/21 10:31 Attending physician: Jarvis Ray Consults: 08/30/21 17:06 Consult Physician Urgent Consulting Provider: [facility] Consult Reason/Comments: acute chest pain Do you want consulting provider notified?: Yes Primary care physician: Steffanie Rooney [facility] Course: Final diagnoses Chest pain, atypical, ACS ruled out Acute alcohol intoxication Acute delirium tremens Thrombocytopenia, probably due to chronic alcohol abuse Hyponatremia, due to chronic alcohol abuse Hypertension Increased AST with mild alcoholic hepatitis Increased random blood sugar Chronic alcohol abuse Chronic nicotine dependence Full Code Discharge disposition Patient is discharged home to follow-up with his PCP and cardiology as needed. Patient will have a repeat BMP in 2 days. Patient discharged home on a seven- day Librium taper and Ativan as needed for breakthrough withdrawal symptoms. Patient was cleared by cardiology for discharge to follow-up as needed and was s tarted on a beta roberto twice a day. Hospital course This is a pleasant 51-year-old male who presented to the with chest pain ongoing for 2-3 days. Patient had chest pain, described as sharp in nature with intermittent shortness of breath. Patient has a past medical history significant for chronic alcohol abuse, currently drinks 12-15 beers per day, history of hernia repair, history of degenerative joint disease, hypertension. Patient chews tobacco as well. He is also being followed closely by his PCP for complaints of pain in his left neck and also pain to his left lower back radiati ng through his buttock into his left thigh. X-rays were taken at his PCP office and patient was recommended to follow-up with neurology outpatient. Patient was evaluated by cardiology this admission who monitored troponin trends which were negative 3. Cardiology recommended starting the patient and a beta roberto and to follow-up in the office as needed. Patient's family had a clear cath 3 years ago so no further workup was necessary from cardiology perspective. Chest pain has resolved. Alcohol on admission was 372, patient was treated with IV Ativan per [facility] protocol. We will discharge patient a Librium taper as well as Ativan as needed for breakthrough withdrawal symptoms. Patient is counseled extensively on alcohol cessation. There is mild hyponatremia, 132 today. Other labs show a white count of 4.5, platelet count 146, sodium 135, potassium 4.1, glucose 106, AST 85, BNP 27. Covid PCR was not detected. Chest x-ray on admission showed normal chest. No change. CT scan chest with no evidence of pneumonia. He did receive 1 dose of IV antibiotics, as he had a fever of 99.2, low-grade on admission. Blood pressure has remained stable at 133/91, afebrile the last 24 hours, heart rate 68 sinus rhythm, 96% on room air. 09/01/2021 Patient is evaluated the bedside. He is not diaphoretic, there is no hallucinations, he is alert and oriented 3 and cooperative. He does have some bilateral hand tremors. He was cleared for discharge on a Librium taper and Ativan as needed for breakthrough withdrawal symptoms. He is agreeing to alcohol cessation and will follow-up closely with his PCP. Focal neurological exam was negative. Lungs are clear to auscultation, S1-S2 is auscultated. Abdomen is soft nontender, there is no nausea vomiting or diarrhea. We will start patient on a prophylactic trial of PPI for possible gastritis/GERD due to chronic alcohol abuse, and possible follow-up with GI outpatient. Patient is agreeable to try this. Patient is also counseled extensively on tobacco cessation. Patient was offered to stay one more night in the hospital versus discharge on medications and patient would like to be discharged home. He is worried about his financial situation. Vital signs today show blood pressure 133/91, heart rate 68, afebrile. Labs today show a white count of 5.02, platelet 118, sodium 132, potassium 3.7, chloride 94, glucose 89. Please see medication reconciliation for list of current medications. Thank you for allowing us to participate in the care of this patient. Patient Condition at Discharge: Fair Plan - Discharge Summary Discharge Rx Participant: No New Discharge Prescriptions: New Metoprolol Tartrate [Lopressor] 25 mg PO BID #60 tab Thiamine [Vitamin B-1] 100 mg PO BID-W/MEALS #60 tab LORazepam [Ativan] 1 mg PO BID PRN 3 Days #6 tab PRN Reason: Alcohol Withdrawal chlordiazePOXIDE HCl [Librium] See Taper PO BID 7 Days #16 capsule HYDROcodone/APAP 5-325MG [[place] 5-325] 1 each PO Q6HR PRN tab PRN Reason: Pain Pantoprazole [Protonix] 40 mg PO BID 14 Days #28 tab No Action Venlafaxine HCl [Effexor XR] 75 mg PO DAILY Albuterol Inhaler [Ventolin Hfa Inhaler] 1 puff INHALATION RT-Q4H PRN PRN Reason: Shortness Of Breath methocarbamoL [Methocarbamol] 500 mg PO BID PRN PRN Reason: Muscle Spasm Discharge Medication List Venlafaxine HCl [Effexor XR] 75 mg PO DAILY 04/28/21 [History] Albuterol Inhaler [Ventolin Hfa Inhaler] 1 puff INHALATION RT-Q4H PRN 08/30/21 [History] methocarbamoL [Methocarbamol] 500 mg PO BID PRN 08/30/21 [History] HYDROcodone/APAP 5-325MG [[place] 5-325] 1 each PO Q6HR PRN tab 09/01/21 [Rx] LORazepam [Ativan] 1 mg PO BID PRN 3 Days #6 tab 09/01/21 [Rx] Metoprolol Tartrate [Lopressor] 25 mg PO BID #60 tab 09/01/21 [Rx] Pantoprazole [Protonix] 40 mg PO BID 14 Days #28 tab 09/01/21 [Rx] Thiamine [Vitamin B-1] 100 mg PO BID-W/MEALS #60 tab 09/01/21 [Rx] chlordiazePOXIDE HCl [Librium] See Taper PO BID 7 Days #16 capsule 09/01/21 [Rx] Follow up Appointment(s)/Referral(s): Steffanie Rooney MD [Primary Care Provider] - 1-2 days Art Palmer MD [STAFF PHYSICIAN] - 1 Week Ambulatory/Diagnostic Orders: Basic Metabolic Panel [LAB.AMB] Time Frame: 2 Days, Location: None Selected Discharge Disposition: HOME SELF-CARE
== END 2021-09-01 13:40 | disposition home or self-care (01) ==
LOC: EC 14:22 → 6NMEDSUR 17:03 → OBSVTOIN 09-01 10:31 → INTOOBSV 09-01 10:31 → UNDODISIN 09-01 13:40
PROVIDERS: ADMIT Hospitalist; ATTEND Hospitalist
DX: R07.89 Other chest pain (principal); F10.121 Alcohol abuse with intoxication delirium; E87.1 Hypo-osmolality and hyponatremia; R50.9 Fever, unspecified; K70.10 Alcoholic hepatitis without ascites; D69.6 Thrombocytopenia, unspecified; I10 Essential (primary) hypertension; K76.0 Fatty (change of) liver, not elsewhere classified; M19.90 Unspecified osteoarthritis, unspecified site; R25.1 Tremor, unspecified; R00.0 Tachycardia, unspecified; M54.50 Low back pain, unspecified; M54.2 Cervicalgia; F32.A Depression, unspecified; F41.9 Anxiety disorder, unspecified; Y90.8 Blood alcohol level of 240 mg/100 ml or more; F17.220 Nicotine dependence, chewing tobacco, uncomplicated; Z79.899 Other long term (current) drug therapy; Z20.822 Contact with and (suspected) exposure to COVID-19; Z98.890 Other specified postprocedural states; Z71.6 Tobacco abuse counseling; Z56.0 Unemployment, unspecified
CPT/HCPCS: 96376 ×2; 96361 ×2; 96365; 96372; 96375 ×2; 99285; 36415; 93005; 85379; 84425; 83880; 80053; 80048 ×2; 83690; 83735; 84484; 85025 ×3; 85610; 85730; 87635; 71046; 71250; G0378 ×3; G0480; J2060 ×2; J3411; J0696 ×3; J1885; 80320; 96374

== ENCOUNTER → 2021-12-03 | Outpatient (CLI) | payer OTHER ==
--- NOTE | 2021-12-03 17:04 | US ---
EXAMINATION TYPE: US abdomen complete DATE OF EXAM: 12/03/2021 COMPARISON: NONE CLINICAL HISTORY: F10.20 Alcohol dependence, uncomplicated. elevated liver enzymes EXAM MEASUREMENTS: Liver Length: 12 cm Gallbladder Wall: .2 cm CBD: .5 cm Spleen: 10.8 cm Right Kidney: 9.8 x 3.7 x 4.4 cm Left Kidney: 10.6 x 4.9 x 4.2 cm Pancreas: Obscured by bowel gas Liver: Increased attenuation Gallbladder: No stones seen Evidence for sonographic Nguyen's sign: No CBD: wnl Spleen: Hypoechoic area seen superior 1.3 x 1.3 x 1.3 cm. This is not clearly identified on the [facility] CT of 08/30/2021. Consider follow-up. Right Kidney: wnl Left Kidney: wnl Upper IVC: wnl Abd Aorta: wnl IMPRESSION: 1. Hypoechoic area at the tip of the spleen. Consider follow-up.
--- NOTE | 2021-12-04 02:03 | MR ---
EXAMINATION TYPE: MR vania/lslinn wo con DATE OF EXAM: 12/03/2021 COMPARISON: None HISTORY: Neck pain, burning sensation between shoulders, Lower Back pain down into left buttock area Multiplanar multiecho imaging of the cervical spine and lumbar spine without contrast. Cervical vertebrae have normal alignment. Disc spaces are slightly narrowed at C5-6 and C6-7. There i s small posterior disc bulging at C3-4 and C5-6 and C6-7. There is developmental highly adequate spin al canal. The canal measures 9 mm at C3-4. Canal measures 9 mm at C5-6. No spinal stenosis. Cervical spinal cord has normal signal pattern. There is no edema. The brainstem is intact. There is no compre ssion fracture. There is mild hypertrophic cervical facet arthropathy. The lumbar vertebrae have fairly normal alignment. There is mild narrowing at L5-S1 disc space. There is no compression fracture. There is no evidence of focal bone destruction. There is minimal posteri or disc bulging at L3-4 and L4-5. There is no lumbar spinal stenosis. There is developmentally adequa te spinal canal. There is no lumbar paraspinal mass. The sacroiliac joints appear intact. There is T1 1-12 mild posterior disc bulging. IMPRESSION: There are some mild degenerative disc changes in the cervical and lumbar spine with posterior disc bu lging as above at multiple levels. No cervical spinal stenosis. No lumbar spinal stenosis. No evidence of cervical or lumbar spine fracture.
== END | disposition home or self-care (01) ==
LOC: RADUSWWP 08:21
PROVIDERS: ATTEND Family Medicine
DX: M50.30 Other cervical disc degeneration, unspecified cervical region (principal); M51.36 Other intervertebral disc degeneration, lumbar region; R74.8 Abnormal levels of other serum enzymes; F10.20 Alcohol dependence, uncomplicated; M50.223 Other cervical disc displacement at C6-C7 level
CPT/HCPCS: 72141; 72148; 76700

== ENCOUNTER 2021-12-22 10:06 | Emergency (ER) | payer OTHER ==
[2021-12-22 11:43] LABS: ALT 40 U/L (4-49); AST 61 U/L (17-59); African American GFR (CKD) >90 (>60 ml/min/1.73 sqM); Albumin 4.5 g/dL (3.5-5.0); Alkaline Phosphatase 96 U/L (38-126); Anion Gap 12 mmol/L; Blood Urea Nitrogen 4 mg/dL (9-20); Carbon Dioxide 25 mmol/L (22-30); Chloride 107 mmol/L (98-107); Glucose 108 mg/dL (74-99); Magnesium 1.9 mg/dL (1.6-2.3); Non-African American GFR(CKD) >90 (>60 ml/min/1.73 sqM); Potassium 4.1 mmol/L (3.5-5.1); Sodium 144 mmol/L (137-145); Total Bilirubin 0.5 mg/dL (0.2-1.3); Total Protein 8.1 g/dL (6.3-8.2)
[2021-12-22 12:06] LABS: Basophils # (A) 0.1 k/uL (0-0.2); Basophils % (A) 1 %; Eosinophils # (A) 0.1 k/uL (0-0.7); Eosinophils % (A) 3 %; HGB 16.8 gm/dL (13.0-17.5); Lymphocytes # (A) 1.4 k/uL (1.0-4.8); Lymphocytes % (A) 37 %; MCH 32.5 pg (25.0-35.0); MCHC 33.5 g/dL (31.0-37.0); Mean Platelet Volume 7.1; Monocytes # (A) 0.3 k/uL (0-1.0); Monocytes % (A) 8 %; Neutrophils # (A) 1.9 k/uL (1.3-7.7); Neutrophils % (A) 49 %; Platelet Count 208 k/uL (150-450); RBC 5.16 m/uL (4.30-5.90); RDW 12.8 % (11.5-15.5); WBC 3.8 k/uL (3.8-10.6)
--- NOTE | 2021-12-22 12:21 | ED ---
Extremity Problem HPI - General Chief complaint: Extremity Problem,Nontraumatic Stated complaint: Left hand numbness Time Seen by Provider: 12/22/21 10:50 Source: patient, EMS, RN notes reviewed Mode of arrival: EMS Limitations: no limitations - History of Present Illness Initial comments: This a 51-year-old male presents emergency Department chief complaint of paresthesias to his left hand. Patient states that it's been numb feeling over the last 3 days. He states mostly in his finger, fingertip region. He does have degenerative disc of his back. Patient states that he also had an injury to his left forearm and which he cut himself with scissors. Patient states that it has been red, swollen. Patient has appears or chills no chest pain or short of breath no headache or dizziness no focal weakness. He states does not feel weak just numb feeling. - Related Data Previous Rx's Medication Instructions Recorded Cephalexin [Keflex] 500 mg PO Q6HR #28 cap 12/22/21 Allergies Allergy/AdvReac Type Severity Reaction Status Date / Time No Known Allergies Allergy Verified 12/22/21 11:25 Review of Systems ROS Statement: Those systems with pertinent positive or pertinent negative responses have been documented in the HPI. ROS Other: All systems not noted in ROS Statement are negative. Past Medical History Past Medical History: No Reported History Additional Past Medical History / Comment(s): ETOH abuse History of Any Multi-Drug Resistant Organisms: None Reported Past Surgical History: Hernia Repair, Orthopedic Surgery Additional Past Surgical History / Comment(s): eye surgery at 12 years, left inguinal hernia repair Past Anesthesia/Blood Transfusion Reactions: No Reported Reaction Past Psychological History: Anxiety, Depression Smoking Status: Never smoker Past Alcohol Use History: Abuse, Daily Past Drug Use History: None Reported, Methamphetamine General Exam Limitations: no limitations General appearance: alert, in no apparent distress Head exam: Present: atraumatic, normocephalic, normal inspection Eye exam: Present: normal appearance, PERRL, EOMI. Absent: scleral icterus, conjunctival injection, periorbital swelling ENT exam: Present: normal exam, normal oropharynx, mucous membranes moist Neck exam: Present: normal inspection, full ROM. Absent: tenderness, meningismus, lymphadenopathy Respiratory exam: Present: normal lung sounds bilaterally. Absent: respiratory distress, wheezes, rales, rhonchi, stridor Cardiovascular Exam: Present: regular rate, normal rhythm, normal heart sounds. Absent: systolic murmur, diastolic murmur, rubs, gallop, clicks Extremities exam: Present: other (Upper extremity strength equal bilaterally, neurovascular intact patient's Refill less than 2 seconds there is a healing laceration left forearm) Neurological exam: Present: alert, oriented X3, reflexes normal. Absent: motor sensory deficit Skin exam: Present: warm, dry, intact, normal color. Absent: rash Course Vital Signs 12/22/21 10:33 Temperature 97.6 F Pulse Rate 86 Respiratory 14 Rate Blood Pressure 140/105 O2 Sat by Pulse 96 Oximetry Medical Decision Making - Medical Decision Making This a 51-year-old presented for left hand numbness. I did with this may be related to nerve involvement posterior cervical difficulty. Patient is neurovascularly intact and equal strength there is no strokelike symptoms. Patient does have a possible infection to his left forearm from injury. Patient was placed on antibiotics. Close follow-up with PCP provided on-call orthopedics return for worsening symptoms. - Lab Data Result diagrams: 12/22/21 10:23 12/22/21 10:23 Lab Results 12/22/21 12/22/21 12/22/21 Range/Units 10:23 10:23 10:23 WBC 3.8 (3.8-10.6) k/uL RBC 5.16 (4.30-5.90) m/uL Hgb 16.8 (13.0-17.5) gm/dL Hct 50.0 (39.0-53.0) % MCV 97.0 (80.0-100.0) fL MCH 32.5 (25.0-35.0) pg MCHC 33.5 (31.0-37.0) g/dL RDW 12.8 (11.5-15.5) % Plt Count 208 (150-450) k/uL MPV 7.1 Neutrophils % 49 % Lymphocytes % 37 % Monocytes % 8 % Eosinophils % 3 % Basophils % 1 % Neutrophils # 1.9 (1.3-7.7) k/uL Lymphocytes # 1.4 (1.0-4.8) k/uL Monocytes # 0.3 (0-1.0) k/uL Eosinophils # 0.1 (0-0.7) k/uL Basophils # 0.1 (0-0.2) k/uL Sodium 144 (137-145) mmol/L Potassium 4.1 (3.5-5.1) mmol/L Chloride 107 (98-107) mmol/L Carbon Dioxide 25 (22-30) mmol/L Anion Gap 12 mmol/L BUN 4 L (9-20) mg/dL Creatinine 0.70 (0.66-1.25) mg/dL Est GFR (CKD-EPI)AfAm >90 (>60 ml/min/1.73 sqM) Est GFR (CKD-EPI)NonAf >90 (>60 ml/min/1.73 sqM) Glucose 108 H (74-99) mg/dL Calcium 9.0 (8.4-10.2) mg/dL Magnesium 1.9 (1.6-2.3) mg/dL Total Bilirubin 0.5 (0.2-1.3) mg/dL AST 61 H (17-59) U/L ALT 40 (4-49) U/L Alkaline Phosphatase 96 (38-126) U/L Troponin I <0.012 (0.000-0.034) ng/mL Total Protein 8.1 (6.3-8.2) g/dL Albumin 4.5 (3.5-5.0) g/dL Disposition Clinical Impression: Left hand paresthesia, Cervical radiculopathy, Left arm cellulitis Disposition: HOME SELF-CARE Condition: Stable Instructions (If sedation given, give patient instructions): Cellulitis (ED), Cervical Radiculopathy (ED) Additional Instructions: Please return to the Emergency Department if symptoms worsen or any other concerns. Prescriptions: Cephalexin [Keflex] 500 mg PO Q6HR #28 cap Is patient prescribed a controlled substance at d/c from ED?: No Referrals: Steffanie Rooney MD [Primary Care Provider] - 1-2 days Jamshid Diaz DO [Doctor of Osteopathic Medicine] - 1-2 days Time of Disposition: 14:19
--- NOTE | 2021-12-22 12:58 | US ---
EXAMINATION TYPE: US venous doppler duplex UE LT DATE OF EXAM: 12/22/2021 COMPARISON: NONE CLINICAL HISTORY: 51-year-old male with Left hand numbness x 2.5 weeks; HX of degenerative disc disea se SIDE PERFORMED: left TECHNIQUE: Grayscale, color doppler, spectral doppler imaging performed of the deep veins of the upper extremiti es. FINDINGS: There is normal flow, compressibility and vascular waveforms. Left Arm: Negative for DVT left arm; negative for superficial venous thrombosis. IMPRESSION: No evidence for DVT within the left upper extremity.
[2021-12-22] MEDS ORDERED: DEXAMETHASONE SOD PHOSPHATE 10 MG/ML 1 ML VIAL IVP STA (14:20)
--- NOTE | 2021-12-22 14:22 | XR ---
Cervical spine HISTORY: Left arm pain, hand numbness 5 views of the cervical spine correlated prior exam 07/25/2021, MRI 12/03/2021 Retrolisthesis grade 1 C3-4, there is multilevel spondylosis. Loss of disc height is greatest at C5-6 . Prevertebral soft tissues are normal. Cervical vertebral bodies show preserved height and bone mine ralization. There are facet arthropathy changes. Oblique images show foraminal encroachment on the le ft at C3-4, C4-5 and C5-6 and on the right at C2-3, C3-4. IMPRESSION: Degenerative disc disease and facet arthropathy, foraminal encroachment
[2021-12-22 14:51] VITALS: BP 120/80; PULSE 88; RESP 18; TEMP 98.5
== END 2021-12-22 14:57 | disposition home or self-care (01) ==
LOC: EC 10:06
DX: R20.2 Paresthesia of skin (principal); L03.114 Cellulitis of left upper limb; M54.12 Radiculopathy, cervical region; F41.9 Anxiety disorder, unspecified; F32.A Depression, unspecified
CPT/HCPCS: 36415; 72050; 80053; 83735; 84484; 85025; 93005; 99285

== ENCOUNTER 2023-02-27 21:06 | Observation (INO) | payer OTHER ==
[2023-02-27] MEDS ORDERED: SODIUM CHLORIDE 0.9% 1,000 ML IV STA (21:32)
[2023-02-27 22:39] LABS: Basophils # (A) 0.1 k/uL (0-0.2); Basophils % (A) 1 %; Eosinophils # (A) 0.1 k/uL (0-0.7); Eosinophils % (A) 1 %; HCT 48.3 % (39.0-53.0); HGB 16.5 gm/dL (13.0-17.5); Lymphocytes # (A) 1.7 k/uL (1.0-4.8); Lymphocytes % (A) 31 %; MCH 31.6 pg (25.0-35.0); MCHC 34.1 g/dL (31.0-37.0); MCV 92.7 fL (80.0-100.0); Mean Platelet Volume 6.9; Monocytes # (A) 0.4 k/uL (0-1.0); Monocytes % (A) 7 %; Neutrophils # (A) 3.2 k/uL (1.3-7.7); Neutrophils % (A) 58 %; Platelet Count 246 k/uL (150-450); RBC 5.21 m/uL (4.30-5.90); RDW 13.4 % (11.5-15.5); WBC 5.5 k/uL (3.8-10.6)
[2023-02-27 22:41] LABS: INR 0.9 (<1.2); Prothrombin Time 9.8 sec (9.0-12.0)
[2023-02-27 22:41] LABS: Appearance,Urine Clear (Clear); Bilirubin,Urine Negative (Negative); Blood,Urine Negative (Negative); Color,Urine Colorless; Glucose,Urine (UA) Negative (Negative); Ketones,Urine Negative (Negative); Leukocyte Esterase,Urine Negative (Negative); Nitrite,Urine Negative (Negative); PH, Urine 6.5 (5.0-8.0); Protein,Urine Negative (Negative); Specific Gravity,Urine 1.002 (1.001-1.035); Urobilinogen,Urine <2.0 mg/dL (<2.0)
[2023-02-27 22:51] LABS: ALT 40 U/L (4-49); AST 53 U/L (17-59); African American GFR (CKD) >90 (>60 ml/min/1.73 sqM); Albumin 4.1 g/dL (3.5-5.0); Alkaline Phosphatase 82 U/L (38-126); Anion Gap 13 mmol/L; Blood Urea Nitrogen 6 mg/dL (9-20); Calcium 8.7 mg/dL (8.4-10.2); Carbon Dioxide 30 mmol/L (22-30); Chloride 101 mmol/L (98-107); Glucose 92 mg/dL (74-99); Lipase 95 U/L (23-300); Magnesium 1.8 mg/dL (1.6-2.3); Non-African American GFR(CKD) >90 (>60 ml/min/1.73 sqM); Potassium 3.6 mmol/L (3.5-5.1); Sodium 144 mmol/L (137-145); Total Bilirubin 0.5 mg/dL (0.2-1.3); Total Protein 6.9 g/dL (6.3-8.2)
[2023-02-27 23:00] LABS: Alcohol 416 mg/dL
[2023-02-27] MEDS ORDERED: NALOXONE 0.4 MG/ML 1 ML VIAL IV PRN (23:09)
--- NOTE | 2023-02-27 23:09 | ED ---
Alcohol HPI - General Chief Complaint: Alcohol Stated Complaint: ETOH Source: patient, police, EMS Mode of arrival: EMS Limitations: no limitations - History of Present Illness Initial Comments: 52-year-old male presents to the emergency department for alcohol abuse. States that he was at home drinking because he is depressed. He thought about killing himself with a gun. Called EMS because he was scared that he was given hurt himself. Admits that he drinks daily. States that yesterday he passed out and hit his head. Denies any other injuries. He has no neck pain. Patient requesting help to quit. Denies any other drug use. No headache or visual changes. No other alleviating, precipitating or modifying factors - Related Data Home Medications Medication Instructions Recorded Confirmed Venlafaxine HCl ER [Effexor XR] 75 mg PO DAILY 07/15/22 07/15/22 Previous Rx's Medication Instructions Recorded Magnesium Oxide [Mag-Ox] 400 mg PO DAILY #14 tab 07/21/22 Metoprolol Succinate (ER) [Toprol 25 mg PO DAILY #30 tab 07/21/22 XL] Multivitamins, Thera [Multivitamin 1 each PO DAILY #30 tab 07/21/22 (formulary)] Thiamine [Vitamin B-1] 100 mg PO DAILY #30 tab 07/21/22 chlordiazePOXIDE HCl [Librium] 10 mg PO DIRECTED 3 Days #14 cap 07/21/22 Allergies Allergy/AdvReac Type Severity Reaction Status Date / Time No Known Allergies Allergy Verified 02/27/23 21:24 Review of Systems ROS Statement: Those systems with pertinent positive or pertinent negative responses have been documented in the HPI. ROS Other: All systems not noted in ROS Statement are negative. Past Medical History Past Medical History: No Reported History Additional Past Medical History / Comment(s): ETOH abuse History of Any Multi-Drug Resistant Organisms: None Reported Past Surgical History: Hernia Repair, Orthopedic Surgery Additional Past Surgical History / Comment(s): eye surgery at 12 years, left inguinal hernia repair Past Anesthesia/Blood Transfusion Reactions: No Reported Reaction Past Psychological History: Anxiety, Depression Smoking Status: Never smoker Past Alcohol Use History: Abuse, Daily Past Drug Use History: None Reported General Exam Limitations: no limitations Course Vital Signs 02/27/23 02/28/23 02/28/23 21:25 01:30 04:00 Temperature 98.2 F Pulse Rate 92 95 94 Respiratory 18 16 16 Rate Blood Pressure 138/97 129/86 113/70 O2 Sat by Pulse 96 95 95 Oximetry Medical Decision Making - Medical Decision Making Was pt. sent in by a medical professional or institution ([facility], [facility], urgent care, hospital, or [place] health care facility...) When possible be specific @ -[No] Did you speak to anyone other than the patient for history (EMS, parent, family, police, friend...)? What history was obtained from this source @ -[No] Did you review nursing and triage notes (agree or disagree)? Why? @ -[I reviewed and agree with nursing and triage notes] Were old charts reviewed (outside hosp., previous admission, EMS record, old EKG, old radiological studies, urgent care reports/EKG's, [place] health care facility records)? Report findings @ -[No old charts were reviewed] Differential Diagnosis (chest pain, altered mental status, abdominal pain women, abdominal pain men, vaginal bleeding, weakness, fever, dyspnea, syncope, headache, dizziness, GI bleed, back pain, seizure, CVA, palpatations, mental health, musculoskeletal)? @ -[not applicable] EKG interpreted by me (3pts min.). @ -[As above] X-rays interpreted by me (1pt min.). @ -[None done] CT interpreted by me (1pt min.). @ -[None done] U/S interpreted by me (1pt. min.). @ -[None done] What testing was considered but not performed or refused? (CT, X-rays, U/S, labs)? Why? @ -[None] What meds were considered but not given or refused? Why? @ -[None] Did you discuss the management of the patient with other professionals (professionals i.e. [facility], [facility], lab, RT, psych nurse, social media intern, square dance caller, teacher, assault amphibious vehicle officer, nurse outreach case manager)? Give summary @ -[No] Was smoking cessation discussed for >3mins.? @ -[No] Was critical care preformed (if so, how long)? @ -[No] Were there social determinants of health that impacted care today? How? (Homelessness, low income, unemployed, alcoholism, drug addiction, transportation, low edu. Level, literacy, decrease access to med. care, retirement, rehab)? @ -[No] Was there de-escalation of care discussed even if they declined (Discuss DNR or withdrawal of care, Hospice)? DNR status @ -[No] What co-morbidities impacted this encounter? (DM, HTN, Smoking, COPD, CAD, Cancer, CVA, ARF, Chemo, Hep., AIDS, mental health diagnosis, sleep apnea, mor bid obesity)? @ -[None] Was patient admitted / discharged? Hospital course, mention meds given and route, prescriptions, significant lab abnormalities, going to OR and other pertinent info. @ -Upon arrival patient was placed into room 21. A thorough history and physical exam was performed. IV access is established and S are conducted. Al cohol is 416. CT of the head and cervical spine demonstrates no acute process. Results are discussed with the patient. Due to significant alcohol intoxication I will admit the patient with psychiatry consult. Patient was agreeable to admission. Spoke with Dr. Bui. Undiagnosed new problem with uncertain prognosis? @ -[No] Drug Therapy requiring intensive monitoring for toxicity (Heparin, Nitro, Insulin, Cardizem)? @ -[No] Were any procedures done? @ -[No] Diagnosis/symptom? @ -[default] Acute, or Chronic, or Acute on Chronic? @ -[default] Uncomplicated (without systemic symptoms) or Complicated (systemic symptoms)? @ -[default] Side effects of treatment? @ -[No] Exacerbation, Progression, or Severe Exacerbation? @ -[No] Poses a threat to life or bodily function? How? (Chest pain, [place], [place], pneumonia, PE, COPD, DKA, ARF, appy, cholecystitis, CVA, Diverticulitis, Homicidal, Suicidal, threat to staff... and all critical care pts) @ -[No] - Lab Data Result diagrams: 02/27/23 21:02/27/23 21: Lab Results 02/27/23 02/27/23 02/27/23 Range/Units : 21: 21: WBC 5.5 (3.8-10.6) k/uL RBC 5.21 (4.30-5.90) m/uL Hgb 16.5 (13.0-17.5) gm/dL Hct 48.3 (39.0-53.0) % MCV 92.7 (80.0-100.0) fL MCH 31.6 (25.0-35.0) pg MCHC 34.1 (31.0-37.0) g/dL RDW 13.4 (11.5-15.5) % Plt Count 246 (150-450) k/uL MPV 6.9 Neutrophils % 58 % Lymphocytes % 31 % Monocytes % 7 % Eosinophils % 1 % Basophils % 1 % Neutrophils # 3.2 (1.3-7.7) k/uL Lymphocytes # 1.7 (1.0-4.8) k/uL Monocytes # 0.4 (0-1.0) k/uL Eosinophils # 0.1 (0-0.7) k/uL Basophils # 0.1 (0-0.2) k/uL PT 9.8 (9.0-12.0) sec INR 0.9 (<1.2) Sodium 144 (137-145) mmol/L Potassium 3.6 (3.5-5.1) mmol/L Chloride 101 (98-107) mmol/L Carbon Dioxide 30 (22-30) mmol/L Anion Gap 13 mmol/L BUN 6 L (9-20) mg/dL Creatinine 0.57 L (0.66-1.25) mg/dL Est GFR (CKD-EPI)AfAm >90 (>60 ml/min/1.73 sqM) Est GFR (CKD-EPI)NonAf >90 (>60 ml/min/1.73 sqM) Glucose 92 (74-99) mg/dL Calcium 8.7 (8.4-10.2) mg/dL Magnesium 1.8 (1.6-2.3) mg/dL Total Bilirubin 0.5 (0.2-1.3) mg/dL AST 53 (17-59) U/L ALT 40 (4-49) U/L Alkaline Phosphatase 82 (38-126) U/L Total Protein 6.9 (6.3-8.2) g/dL Albumin 4.1 (3.5-5.0) g/dL Lipase 95 (23-300) U/L Urine Color Urine Appearance (Clear) Urine pH (5.0-8.0) Ur Specific [place] (1.001-1.035) Urine Protein (Negative) Urine Glucose (UA) (Negative) Urine Ketones (Negative) Urine Blood (Negative) Urine Nitrite (Negative) Urine Bilirubin (Negative) Urine Urobilinogen (<2.0) mg/dL Ur Leukocyte Esterase (Negative) Serum Alcohol 416 H* mg/dL 02/27/23 Range/Units 22:00 WBC (3.8-10.6) k/uL RBC (4.30-5.90) m/uL Hgb (13.0-17.5) gm/dL Hct (39.0-53.0) % MCV (80.0-100.0) fL MCH (25.0-35.0) pg MCHC (31.0-37.0) g/dL RDW (11.5-15.5) % Plt Count (150-450) k/uL MPV Neutrophils % % Lymphocytes % % Monocytes % % Eosinophils % % Basophils % % Neutrophils # (1.3-7.7) k/uL Lymphocytes # (1.0-4.8) k/uL Monocytes # (0-1.0) k/uL Eosinophils # (0-0.7) k/uL Basophils # (0-0.2) k/uL PT (9.0-12.0) sec INR (<1.2) Sodium (137-145) mmol/L Potassium (3.5-5.1) mmol/L Chloride (98-107) mmol/L Carbon Dioxide (22-30) mmol/L Anion Gap mmol/L BUN (9-20) mg/dL Creatinine (0.66-1.25) mg/dL Est GFR (CKD-EPI)AfAm (>60 ml/min/1.73 sqM) Est GFR (CKD-EPI)NonAf (>60 ml/min/1.73 sqM) Glucose (74-99) mg/dL Calcium (8.4-10.2) mg/dL Magnesium (1.6-2.3) mg/dL Total Bilirubin (0.2-1.3) mg/dL AST (17-59) U/L ALT (4-49) U/L Alkaline Phosphatase (38-126) U/L Total Protein (6.3-8.2) g/dL Albumin (3.5-5.0) g/dL Lipase (23-300) U/L Urine Color Colorless Urine Appearance Clear (Clear) Urine pH 6.5 (5.0-8.0) Ur Specific [place] 1.002 (1.001-1.035) Urine Protein Negative (Negative) Urine Glucose (UA) Negative (Negative) Urine Ketones Negative (Negative) Urine Blood Negative (Negative) Urine Nitrite Negative (Negative) Urine Bilirubin Negative (Negative) Urine Urobilinogen <2.0 (<2.0) mg/dL Ur Leukocyte Esterase Negative (Negative) Serum Alcohol mg/dL Disposition Clinical Impression: Alcohol intoxication, Depression Disposition: ADMITTED IP TO THIS HOSP Condition: Stable Is patient prescribed a controlled substance at d/c from ED?: No Time of Disposition: 23:05 Decision to Admit Reason: Admit from EC Decision Date: 02/27/23 Decision Time: 23:05
[2023-02-27] MEDS ORDERED: LORazepam 1 MG TAB PO PRN (23:12)
[2023-02-27] MEDS ORDERED: THIAMINE 100 MG/ML 2 ML VIAL IM STA (23:12)
[2023-02-27] MEDS ORDERED: LORazepam 0.5 MG TAB PO PRN (23:12)
[2023-02-28] MEDS: SODIUM CHLORIDE 0.9% 1,000 ML IV SCH ×4 (00:27→20:01)
--- NOTE | 2023-02-28 00:48 | CT ---
EXAM: CT Head Without Intravenous Contrast CLINICAL HISTORY: ITS.REASON CT Reason: alcohol, fall, head injury TECHNIQUE: Axial computed tomography images of the head/brain without intravenous contrast. CTDI is 45.2 mGy and DLP is 1077 mGy-cm. This CT exam was performed using one or more of the following dose reduction techniques: automated exposure control, adjustment of the mA and/or kV according to patient size, and/or use of iterative reconstruction technique. COMPARISON: No relevant prior studies available. FINDINGS: Brain: No hemorrhage, extra-axial fluid collection, mass effect, or edema. Ventricles: Unremarkable. Bones/joints: Unremarkable. No fracture. Soft tissues: Unremarkable. Sinuses: No acute sinusitis. Mastoid air cells: Unremarkable as visualized. IMPRESSION: 1. No acute intracranial abnormality. EXAM: CT Cervical Spine Without Intravenous Contrast CLINICAL HISTORY: ITS.REASON CT Reason: alcohol, fall, head injury TECHNIQUE: Axial computed tomography images of the cervical spine without intravenous contrast. CTDI is 12 mGy and DLP is 369.3 mGy-cm. This CT exam was performed using one or more of the following dose reduction techniques: automated exposure control, adjustment of the mA and/or kV according to patient size, and/or use of iterative reconstruction technique. COMPARISON: No relevant prior studies available. FINDINGS: Vertebrae: No acute fracture. No malalignment. Soft tissues: Unremarkable. IMPRESSION: No fracture within the cervical spine.
[2023-02-28] MEDS: LORazepam 1 MG TAB PO PRN ×5 (02:21→19:59)
[2023-02-28 07:23] LABS: Basophils % (A) 1 %; Eosinophils # (A) 0.2 k/uL (0-0.7); Eosinophils % (A) 3 %; HCT 48.6 % (39.0-53.0); HGB 16.3 gm/dL (13.0-17.5); Lymphocytes # (A) 1.8 k/uL (1.0-4.8); Lymphocytes % (A) 28 %; MCH 31.5 pg (25.0-35.0); MCHC 33.6 g/dL (31.0-37.0); MCV 93.8 fL (80.0-100.0); Mean Platelet Volume 6.9; Monocytes # (A) 0.4 k/uL (0-1.0); Monocytes % (A) 6 %; Neutrophils # (A) 3.7 k/uL (1.3-7.7); Neutrophils % (A) 60 %; Platelet Count 245 k/uL (150-450); RBC 5.18 m/uL (4.30-5.90); RDW 13.5 % (11.5-15.5); WBC 6.2 k/uL (3.8-10.6)
[2023-02-28 07:31] LABS: African American GFR (CKD) >90 (>60 ml/min/1.73 sqM); Anion Gap 11 mmol/L; Blood Urea Nitrogen 6 mg/dL (9-20); Calcium 8.5 mg/dL (8.4-10.2); Carbon Dioxide 28 mmol/L (22-30); Chloride 105 mmol/L (98-107); Glucose 98 mg/dL (74-99); Non-African American GFR(CKD) >90 (>60 ml/min/1.73 sqM); Potassium 3.8 mmol/L (3.5-5.1); Sodium 144 mmol/L (137-145)
[2023-02-28] MEDS: THIAMINE 100 MG TAB PO SCH (09:48)
[2023-02-28] MEDS ORDERED: traZODone HCL 50 MG TAB PO PRN (12:06)
[2023-02-28] MEDS ORDERED: CYCLOBENZAPRINE 10 MG TAB PO PRN (12:06)
[2023-02-28] MEDS ORDERED: HYDROcodone/APAP 5-325MG 1 EACH TAB PO PRN (12:07)
[2023-02-28] MEDS: METOPROLOL SUCCINATE (ER) 25 MG TAB.ER.24H PO SCH (12:50)
--- NOTE | 2023-02-28 15:33 | HP ---
HISTORY AND PHYSICAL CHIEF COMPLAINT: Alcohol intoxication and early delirium tremens. HISTORY OF PRESENT ILLNESS: This is a 52-year-old gentleman with a past medical history of multiple medical problems including EtOH, who was apparently drinking heavily. The patient is apparently depressed. Currently, no suicidal ideations, but the patient is admitted for evaluation with a psychiatric consultation. There is no history of chest pain or palpitation. PAST MEDICAL HISTORY: Reviewed and includes EtOH. Rest of the history and rest of the chart are also reviewed. HOME MEDICATIONS: Trazodone. Dose and rest of medications reviewed. ALLERGIES: None. FAMILY HISTORY: No history of heart disease or strokes in the family. SOCIAL HISTORY: Heavy alcohol. No smoking. REVIEW OF SYSTEMS: Fourteen-point review is negative except as mentioned. PHYSICAL EXAMINATION: VITAL SIGNS: Pulse is 109, blood pressure 100/57, respirations 18. HEENT: Conjunctivae normal. NECK: No jugular venous distention. CARDIOVASCULAR: S1 and S2. RESPIRATIONS: Clear to auscultation. ABDOMEN: Soft. LEGS: No edema. NERVOUS SYSTEM: Diffuse tremors. SKIN: No ulcer, rash, or bleeding. JOINTS: No active deforming arthropathy. LABORATORY DATA: Reviewed. ASSESSMENT: 1. Acute alcohol intoxication. 2. Early delirium tremens. 3. Depression. 4. Multiple medical issues. RECOMMENDATIONS AND DISCUSSION: This is a 52-year-old gentleman, who presented with multiple complex medical issues. We will monitor the patient closely. I would recommend [facility] protocol. Recommend to resume the home medications and psychiatric consultation. We will repeat labs. We will follow the patient closely. Supplement vitamins. Guarded prognosis. Further recommendations to follow. MMODL / IJN: [id number] /
[2023-02-28] MEDS ORDERED: NALTREXONE MICROSPHERES 380 MG VIAL (NO COST - VIVITROL) IM ONE (17:45)
--- NOTE | 2023-02-28 17:54 | P.CN ---
Psychiatric Consult - . Consult date: 02/28/23 Consult:: 02/28/23 17:24 IDENTIFYING DATA: This patient is a 52-year-old employed single male REASON FOR REFERRAL: Psychiatry was consulted for depression in the context of alcohol use HISTORY OF PRESENT ILLNESS: The patient presented to the hospital on 02/27/2023 for alcohol intoxication. While in the ED, patient was reported to be saying that he thought about killing himself with a gun. However, he stated that he had called EMS instead due to having such thoughts. Patient was seen bedside this afternoon. He states that he has been drinking 15-16 beers daily for the past 30 years with periods of sobriety. Patient is able to acknowledge the negative consequences of alcohol use including having gotten a DUI in 2012. He also states that he has attended rehab 3 times in the past. He reports having attended rehab at [place] twice and having gone to [facility] detox unit 3 weeks ago. He states that he had been sober for the longest period of time when he was on the Vivitrol injection, which he received once in 2021. However patient also reports history of poor compliance with medication once he is feeling better. Patient states that while intoxicated yesterday he also consumed a small amount of methamphetamine. He states that he does not use methamphetamine regularly and used to use it a long time ago. Shorty states that his mood is generally "happy go tim ". He states that he enjoys shooting with bow and arrow, going fishing and going shooting with his brother. Patient states that he does not have access to guns and that they are locked away with the andrews belonging to his brother Giorgi. Patient was agreeable with this provider contacting Giorgi. However, despite attempting several times, he did not answer the phone. Patient states that his appetite is fair but that he has difficulty sleeping without alcohol. 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 He denies any acute stressors. At this time patient vehemently denies any suicidal or homicidal ideations, intent or plan. He is future oriented and repeatedly states that he wants to remain sober, engage in alcohol anonymous, and continue to attend therapy with his therapist Cornell. Throughout the interview, patient also states that he enjoys spending time with his brother and would never want to cause him pain, which he feels would be inevitable if patient hurt himself. He states that he occasionally experiences fleeting passive suicidal ideation while drinking and must have voiced this while he was in the ED. He says that experiencing those thoughts is scary to him and unlike him. He says he has been reaching out for appointments with therapist as a result and been taking antidepressants prescribed by PCP. Patient denies any auditory, visual hallucinations and denies any paranoia or delusions. PAST PSYCHIATRIC HISTORY: Patient endorses a history of depression. He is currently receiving treatment by his primary care provider with Effexor 75 mg daily and trazodone 150 mg at bedtime for sleep. He reports compliance with these medications and states that he is doing well on them without any side effects. Patient denies having history of psychiatric hospitalizations. He reports engaging in therapy with Cornell. He also states that he is planning to engage substance use counseling at the same outpatient practice. Patient denies a history of nonsuicidal self injury. He endorses having contemplated killing himself with an electric cord in 2021 but denies this recently. He stated that at the time, he decided not to go through with it because it would cause his brother pain. Patient states that he had vivitrol injection in the past and did very well on it. He is very interested in obtaining this today. PAST MEDICAL HISTORY: Past Medical History: No Reported History Additional Past Medical History / Comment(s): ETOH abuse History of Any Multi-Drug Resistant Organisms: None Reported Past Surgical History: Hernia Repair, Orthopedic Surgery Additional Past Surgical History / Comment(s): eye surgery at 12 years, left inguinal hernia repair Past Anesthesia/Blood Transfusion Reactions: No Reported Reaction Past Psychological History: Anxiety, Depression Smoking Status: Never smoker Past Alcohol Use History: Abuse, Daily Past Drug Use History: None Reported ALLERGIES: as per EMR. CHEMICAL DEPENDENCY HISTORY: as per HPI. He reports chewing tobacco daily. He states that he used to use meth long ago for a period of 2 months. He also reports having used cocaine a long time ago for a period of one month. He endorses having had a DUI in 2012. FAMILY PSYCHIATRIC/SUBSTANCE USE HISTORY: Patient denies all including suicide attempts in the family SOCIAL HISTORY: Patient states that he currently lives with a friend. He states that he is never but has one son. He reports having 2 older brothers. He states that he is particularly close to his brother Giorgi. MENTAL STATUS EXAM: General Appearance: Patient appears to be stated age is alert, pleasant, and cooperative. Patient appears to have fair hygiene and grooming wearing hospital gown with fair eye contact. Behavior: Patient is calmly lying in bed without any agitated behavior. Speech: Patient's speech is fluent and nonpressured. Mood/Affect: Patient reports their mood is "good", affect is constricted Suicidality/Homicidality: Patient denies having any suicidal or homicidal ideation intent or plan. Perceptions: Patient denies any visual hallucinations and denies any auditory hallucinations Though content/process: There is no evidence of any delusional thought content and thought process is linear and goal-directed. Memory and concentration: AOX3, limited in recalling certain facts about his past Judgment and insight: Fair regarding substance use and seeking treatment. 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 -Would recommend the following medication changes/additions: Continue Effexor 75 mg daily and trazodone 150 mg qHS for sleep Start Vivitrol 380 mg q4W. Next due 03/28/23. Discussed potential side effects including inability for opioid medications to work. Patient expressed understanding and agreed to this medication. -CIWA protocol with PRN Ativan for alcohol withdrawal per primary team. Continue to monitor vital signs. CIWA has been mildly elevated today with highest reading being 11 -Patient plans to follow up with his outpatient therapist and will need to be scheduled for Vivitrol injection with his primary care provider. -[employer] spoke with patient about substance abuse and the harmful effects on medical and mental health, patient verbally understood and agreed. -lead supply worker to provide patient substance use treatment resources including AA/NA meetings in the community. This provider attempted to communicate gun safety to patient's brother Giorgi and to limit patient's access. Social work requested to attempt again when possible prior to discharge. -lead supply worker to provide patient with access line number to call for inpatient substance rehab -Communicated plan to patient's nurse -Psychiatry will sign off at this time -Please contact with any questions.
[2023-02-28 21:00] LABS: Amphetamine Screen,Urine Not Detected (NotDetected); Barbiturate Screen,Urine Not Detected (NotDetected); Benzodiazepines Screen,Urine Detected (NotDetected); Cocaine Screen,Urine Not Detected (NotDetected); Methadone Screen, Urine Not Detected (NotDetected); Opiate Screen,Urine Not Detected (NotDetected); Oxycodone Screen, Urine Not Detected (NotDetected); Phencyclidine Screen,Urine Not Detected (NotDetected); Tricyclic Antidepressant,Urine Not Detected (NotDetected); Urn Cannabinoid Scrn Not Detected (NotDetected)
[2023-03-01] MEDS: SODIUM CHLORIDE 0.9% 1,000 ML IV SCH (06:25)
[2023-03-01] MEDS: LORazepam 1 MG TAB PO PRN (06:26)
[2023-03-01] MEDS: THIAMINE 100 MG TAB PO SCH (07:57)
[2023-03-01] MEDS: METOPROLOL SUCCINATE (ER) 25 MG TAB.ER.24H PO SCH (07:57)
[2023-03-01 08:38] LABS: Basophils # (A) 0.04 X 10*3/uL (0.00-0.10); Basophils % (A) 0.7 %; Eosinophils # (A) 0.17 X 10*3/uL (0.04-0.35); Eosinophils % (A) 2.8 %; HCT 45.5 % (39.6-50.0); HGB 15.2 g/dL (13.0-17.0); Immature Grans, Automated 0.3 %; Lymphocytes # (A) 1.19 X 10*3/uL (0.90-5.00); Lymphocytes % (A) 19.5 %; MCHC 33.4 g/dL (32.0-37.0); MCV 92.9 fL (80.0-97.0); Mean Platelet Volume 9.5 fL (9.5-12.2); Monocytes # (A) 0.59 X 10*3/uL (0.20-1.00); Monocytes % (A) 9.7 %; NRBC Per 100 WBC 0 /100 WBCS (0.0-0.0); Neutrophils # (A) 4.08 X 10*3/uL (1.80-7.70); Platelet Count 212 X 10*3/uL (140-440); RDW 12.8 % (11.5-14.5); WBC 6.09 X 10*3/uL (4.50-10.00)
[2023-03-01] MEDS ORDERED: VENLAFAXINE HCL ER 75 MG CAP PO SCH (09:00)
[2023-03-01 09:13] LABS: African American GFR (CKD) 134.9 (60.0-200.0); Albumin 3.3 g/dL (3.8-4.9); Albumin/Globulin Ratio 1.5 (1.60-3.17); Anion Gap 8.6 mmol/L (10.00-18.00); Blood Urea Nitrogen 8.4 mg/dL (9.0-27.0); Calcium 8.5 mg/dL (8.7-10.3); Carbon Dioxide 26.4 mmol/L (20.0-27.5); Globulin 2.2 g/dL (1.6-3.3); Non-African American GFR(CKD) 116.4 (60.0-200.0); Potassium 4.1 mmol/L (3.5-5.5); Total Bilirubin 0.7 mg/dL (0.30-1.20); Total Protein 5.5 g/dL (6.2-8.2)
[2023-03-01 15:20] VITALS: BP 143/91; PULSE 86; RESP 16; TEMP 97.9
--- NOTE | 2023-03-01 22:31 | DS ---
DISCHARGE SUMMARY FINAL DIAGNOSES: 1. Acute alcohol intoxication. 2. Early delirium tremens. 3. Depression. DISCHARGE INSTRUCTIONS: The patient will be discharged in stable condition and guarded prognosis. HISTORY OF PRESENT ILLNESS: This 52-year-old gentleman was admitted with alcohol intoxication. The patient improved significantly. See orders and multiple notes for further information. Psychiatry saw the patient. The patient will be discharged with recommendation to attend alcohol rehab. I discussed with the patient, he understands and agrees. PHYSICAL EXAMINATION: VITAL SIGNS: Stable. CARDIOVASCULAR: S1 and S2. NERVOUS SYSTEM: No focal deficits. DISCHARGE MEDICATIONS: Resume the home medications, multivitamins, Librium 25 mg t.i.d., folic acid, thiamine. Follow up with Dr. Steffanie Rooney. Follow up with psych as recommended. No ETOH. MMODL / IJN: [id number] /
== END 2023-03-01 16:13 | disposition home or self-care (01) ==
LOC: EC 21:06 → 6NMEDSUR 23:09 → 4SSUR 02-28 05:45
PROVIDERS: ADMIT Internal Medicine; ATTEND Internal Medicine
DX: F10.220 Alcohol dependence with intoxication, uncomplicated (principal); F10.231 Alcohol dependence with withdrawal delirium; F10.24 Alcohol dependence with alcohol-induced mood disorder; F10.282 Alcohol dependence with alcohol-induced sleep disorder; Y90.8 Blood alcohol level of 240 mg/100 ml or more; F32.A Depression, unspecified; F41.9 Anxiety disorder, unspecified; Z79.899 Other long term (current) drug therapy; Z98.890 Other specified postprocedural states
CPT/HCPCS: 96361 ×2; 96372 ×2; 96360; 99285; 36415; 80053 ×2; 80048; 83690; 83735; 85025 ×3; 85610; 80306; 72125; 70450; 81003; G0378 ×4; G0480; J3411; J2315; 80320

== ENCOUNTER 2023-03-10 17:39 | Emergency (ER) | payer OTHER ==
[2023-03-10] MEDS ORDERED: CEPHALEXIN 500 MG CAP PO STA (19:20)
--- NOTE | 2023-03-10 19:21 | ED ---
Recheck HPI - General Chief Complaint: Recheck/Abnormal Lab/Rx Stated Complaint: swelling on backside Time Seen by Provider: 03/10/23 19:05 Source: patient, RN notes reviewed, old records reviewed Mode of arrival: ambulatory Limitations: no limitations - History of Present Illness Initial Comments: Patient states that he seen Dr. Valiente this morning was diagnosed with cellulitis status post IM injection on March 02. She outlined the wound with a skin marker and called him in a prescription for antibiotics which he states can not remember the name. He has not started taking it yet. He just wants to be evaluated in the ER to make sure that it is not a tumor. MD Complaint: other (errythema s/p injection last week) Initial Visit For: cellulitis Returns Today for: cellulitis follow-up Symptoms Since Prior Visit: no new symptoms Associated Symptoms: none - Related Data Home Medications Medication Instructions Recorded Confirmed Venlafaxine HCl ER [Effexor XR] 75 mg PO DAILY 07/15/22 02/28/23 Cyclobenzaprine [Flexeril] 10 mg PO TID PRN 02/28/23 02/28/23 traZODone HCL 150 mg PO HS PRN 02/28/23 02/28/23 Previous Rx's Medication Instructions Recorded Metoprolol Succinate (ER) [Toprol 25 mg PO DAILY #30 tab 07/21/22 XL] Folic Acid 1 mg PO DAILY #30 tablet 03/01/23 Multivitamins, Thera [Multivitamin] 1 tab PO DAILY #30 tablet 03/01/23 Thiamine [Vitamin B-1] 100 mg PO DAILY #30 tablet 03/01/23 chlordiazePOXIDE HCl [Librium] 25 mg PO TID 3 Days #9 capsule 03/01/23 Allergies Allergy/AdvReac Type Severity Reaction Status Date / Time No Known Allergies Allergy Verified 03/10/23 18:20 Review of Systems ROS Statement: Those systems with pertinent positive or pertinent negative responses have been documented in the HPI. ROS Other: All systems not noted in ROS Statement are negative. Past Medical History Past Medical History: No Reported History Additional Past Medical History / Comment(s): ETOH abuse History of Any Multi-Drug Resistant Organisms: None Reported Past Surgical History: Hernia Repair, Orthopedic Surgery Additional Past Surgical History / Comment(s): eye surgery at 12 years, left inguinal hernia repair Past Anesthesia/Blood Transfusion Reactions: No Reported Reaction Past Psychological History: Anxiety, Depression Smoking Status: Never smoker Past Alcohol Use History: Abuse, Daily Past Drug Use History: None Reported General Exam Limitations: no limitations General appearance: alert, in no apparent distress Head exam: Present: atraumatic Eye exam: Present: normal appearance. Absent: scleral icterus, conjunctival injection, periorbital swelling, periorbital tenderness Respiratory exam: Absent: respiratory distress, accessory muscle use Cardiovascular Exam: Present: regular rate Extremities exam: Present: full ROM, normal capillary refill. Absent: pedal edema Neurological exam: Present: alert, oriented X3 Psychiatric exam: Present: normal affect, normal mood Skin exam: Present: warm, dry, erythema (left buttock ). Absent: pallor Course Vital Signs 03/10/23 03/10/23 18:16 19:29 Temperature 99.0 F 98.8 F Pulse Rate 82 84 Respiratory 18 14 Rate Blood Pressure 118/79 120/82 O2 Sat by Pulse 99 97 Oximetry Medical Decision Making - Medical Decision Making Was pt. sent in by a medical professional or institution (Dr. PA, COMBINATION SAW OPERATOR, urgent care, hospital, or shelter...) When possible be specific @ -No Did you speak to anyone other than the patient for history (EMS, parent, family, police, friend...)? What history was obtained from this source @ -No Did you review nursing and triage notes (agree or disagree)? Why? @ -I reviewed and agree with nursing and triage notes Were old charts reviewed (outside hosp., previous admission, EMS record, old EKG, old radiological studies, urgent care reports/EKG's, shelter records)? Report findings @ -No old charts were reviewed Differential Diagnosis (chest pain, altered mental status, abdominal pain women, abdominal pain men, vaginal bleeding, weakness, fever, dyspnea, syncope, headache, dizziness, GI bleed, back pain, seizure, CVA, palpatations, mental health, musculoskeletal)? @ -Cellulitis, abscess, ALLERGIC reaction EKG interpreted by me (3pts min.). @ -n/a X-rays interpreted by me (1pt min.). @ -None done CT interpreted by me (1pt min.). @ -None done U/S interpreted by me (1pt. min.). @ -None done What testing was considered but not performed or refused? (CT, X-rays, U/S, labs)? Why? @ -None What meds were considered but not given or refused? Why? @ -Prescription for antibiotics was not provided as patient states a prescription was called in by his primary care doctor for an antibiotic today. Did you discuss the management of the patient with other professionals (professionals i.e. , PA, COMBINATION SAW OPERATOR, lab, RT, psych nurse, social work administrator, knitting demonstrator, teacher, commissioned defence force officer, protective services case worker)? Give summary @ -No Was smoking cessation discussed for >3mins.? @ -No Was critical care preformed (if so, how long)? @ -No Were there social determinants of health that impacted care today? How? (Homelessness, low income, unemployed, alcoholism, drug addiction, transportation, low edu. Level, literacy, decrease access to med. care, skilled nursing, rehab)? @ -No Was there de-escalation of care discussed even if they declined (Discuss DNR or withdrawal of care, Hospice)? DNR status @ -No What co-morbidities impacted this encounter? (DM, HTN, Smoking, COPD, CAD, C ancer, CVA, ARF, Chemo, Hep., AIDS, mental health diagnosis, sleep apnea, morbid obesity)? @ -None Was patient admitted / discharged? Hospital course, mention meds given and route, prescriptions, significant lab abnormalities, going to OR and other pertinent info. @ -Discharged Patient presents for evaluation of left buttock cellulitis status post IM injection on March 02. Patient states he did see his primary care Dr. Valiente who outlined the erythema of the left buttock and prescribed antibiotics. Erythema is well inside the skin markings with no evidence of progression. There is no fluctuance or induration. Patient has not started the antibiotics yet. He was given a dose of Keflex here in the emergency room and directed to take the medicine prescribed by his doctor. Follow-up next week and return with any new or concerning symptoms. Case discussed with Dr. Bland. Undiagnosed new problem with uncertain prognosis? @ -No Drug Therapy requiring intensive monitoring for toxicity (Heparin, Nitro, Insulin, Cardizem)? @ -No Were any procedures done? @ -No] Diagnosis/symptom? @ -Cellulitis Acute, or Chronic, or Acute on Chronic? @ -Acute Uncomplicated (without systemic symptoms) or Complicated (systemic symptoms)? @ -Uncomplicated Side effects of treatment? @ -[No] Exacerbation, Progression, or Severe Exacerbation? @ -[No] Poses a threat to life or bodily function? How? (Chest pain, [place], [place], pneumonia, PE, COPD, DKA, ARF, appy, cholecystitis, CVA, Diverticulitis, Homicidal, Suicidal, threat to staff... and all critical care pts) @ -[No] Disposition Clinical Impression: Cellulitis Disposition: HOME SELF-CARE Condition: Good Instructions (If sedation given, give patient instructions): Cellulitis (ED) Additional Instructions: Take antibiotics as prescribed by Dr. Kathleen your primary care doctor. Follow-up with her next week for continuation of care. Return to the emergency room with pain or concerning symptoms including increased redness or fevers. Is patient prescribed a controlled substance at d/c from ED?: No Referrals: Steffanie Rooney MD [Primary Care Provider] - 1-2 days Time of Disposition: 19:21
[2023-03-10 19:31] VITALS: BP 120/82; PULSE 84; RESP 14; TEMP 98.8
== END 2023-03-11 00:15 | disposition home or self-care (01) ==
LOC: EC 17:39
DX: L03.317 Cellulitis of buttock (principal); F32.A Depression, unspecified; F41.9 Anxiety disorder, unspecified; Z79.899 Other long term (current) drug therapy
CPT/HCPCS: 99283

== ENCOUNTER 2023-05-05 10:35 | Emergency (ER) | payer OTHER ==
[2023-05-05 10:42] VITALS: RESP 16; TEMP 98
[2023-05-05] MEDS ORDERED: SODIUM CHLORIDE 0.9% 1,000 ML IV STA (10:50)
[2023-05-05] MEDS ORDERED: KETOROLAC 15 MG/ML 1 ML VIAL IVP STA (10:57)
[2023-05-05 11:15] LABS: Basophils % (A) 1 %; Eosinophils # (A) 0.1 k/uL (0-0.7); Eosinophils % (A) 3 %; HCT 46.4 % (39.0-53.0); HGB 15.8 gm/dL (13.0-17.5); Lymphocytes # (A) 1.1 k/uL (1.0-4.8); Lymphocytes % (A) 27 %; MCH 31.4 pg (25.0-35.0); MCV 92.3 fL (80.0-100.0); Mean Platelet Volume 7.2; Monocytes # (A) 0.3 k/uL (0-1.0); Monocytes % (A) 7 %; Neutrophils # (A) 2.4 k/uL (1.3-7.7); Neutrophils % (A) 59 %; Platelet Count 269 k/uL (150-450); RBC 5.03 m/uL (4.30-5.90); RDW 14.3 % (11.5-15.5)
--- NOTE | 2023-05-05 11:17 | ED ---
Chest Pain HPI - General Chief Complaint: Chest Pain Stated Complaint: chest pain Time Seen by Provider: 05/05/23 10:50 Source: EMS Mode of arrival: EMS Limitations: no limitations - History of Present Illness Initial Comments: Patient 52-year-old male presents to emergency department for chest pain. It started yesterday. Patient reports consistent aching in his chest which is worsening with pressing on his chest with his hand. He denies shortness of breath, numbness, tingling. Denies nausea or vomiting. Denies history of cardiac disease. He chews tobacco otherwise nonsmoker. Admits to drinking beer today patient has history of alcohol use disorder. Patient is very anxious states he has history anxiety and depression. Denies suicidal or homicidal ideation - Related Data Home Medications Medication Instructions Recorded Confirmed No Known Home Medications 05/05/23 05/05/23 Allergies Allergy/AdvReac Type Severity Reaction Status Date / Time No Known Allergies Allergy Verified 05/05/23 11:54 Review of Systems ROS Statement: Those systems with pertinent positive or pertinent negative responses have been documented in the HPI. ROS Other: All systems not noted in ROS Statement are negative. Past Medical History Past Medical History: No Reported History Additional Past Medical History / Comment(s): ETOH abuse History of Any Multi-Drug Resistant Organisms: None Reported Past Surgical History: Hernia Repair, Orthopedic Surgery Additional Past Surgical History / Comment(s): eye surgery at 12 years, left inguinal hernia repair Past Anesthesia/Blood Transfusion Reactions: No Reported Reaction Past Psychological History: Anxiety, Depression Smoking Status: Never smoker Past Alcohol Use History: Abuse, Daily Past Drug Use History: None Reported General Exam Limitations: no limitations General appearance: alert, in no apparent distress Eye exam: Present: normal appearance, PERRL, EOMI. Absent: scleral icterus, conjunctival injection, periorbital swelling Respiratory exam: Present: normal lung sounds bilaterally. Absent: respiratory distress, wheezes, rales, rhonchi, stridor Cardiovascular Exam: Present: regular rate, normal rhythm, normal heart sounds. Absent: systolic murmur, diastolic murmur, rubs, gallop, clicks GI/Abdominal exam: Present: soft, normal bowel sounds. Absent: distended, tenderness, guarding, rebound, rigid Extremities exam: Present: normal inspection, full ROM, normal capillary refill Neurological exam: Present: alert Psychiatric exam: Present: anxious Skin exam: Present: warm, dry, intact, normal color. Absent: rash Course Vital Signs 05/05/23 05/05/23 10:39 12:08 Temperature 98 F Pulse Rate 86 82 Respiratory 16 16 Rate Blood Pressure 151/92 148/96 O2 Sat by Pulse 96 95 Oximetry Chest Pain MDM - [facility] EKG taken at 10:44, interpreted by myself Sinus rhythm, right axis deviation, no ST changes Ventricular rate 85, AL interval 126, QRS duration 101, QTc 417 Was pt. sent in by a medical professional or institution (AUGUST Fisher, ELECTRIC METER REPAIRER APPRENTICE, urgent care, hospital, or intermediate...) When possible be specific @ -No Did you speak to anyone other than the patient for history (EMS, parent, family, police, friend...)? What history was obtained from this source @ -No Did you review nursing and triage notes (agree or disagree)? Why? @ -I reviewed and agree with nursing and triage notes Were old charts reviewed (outside hosp., previous admission, EMS record, old EKG, old radiological studies, urgent care reports/EKG's, intermediate records)? Report findings @ -No old charts were reviewed Differential Diagnosis (chest pain, altered mental status, abdominal pain women, abdominal pain men, vaginal bleeding, weakness, fever, dyspnea, syncope, headache, dizziness, GI bleed, back pain, seizure, CVA, palpatations, mental health)? @ -Differential Chest Pain: Stable Angina, Unstable Angina, STEMI, NSTEMI Aortic Dissection, Pneumothorax, Musculoskeletal, Esophageal Spasm GERD, Cholecystitis, Pancreatitis, Zoster, this is not meant to be an all-inclusive list. EKG interpreted by me (3pts min.). @ -As above X-rays interpreted by me (1pt min.). @ -No acute cardiopulmonary process CT interpreted by me (1pt min.). @ -None done U/S interpreted by me (1pt. min.). @ -None done What testing was considered but not performed or refused? (CT, X-rays, U/S, labs)? Why? @ -None What meds were considered but not given or refused? Why? @ -None Did you discuss the management of the patient with other professionals (professionals i.e. AUGUST Fisher, ELECTRIC METER REPAIRER APPRENTICE, lab, RT, psych nurse, social sciences professor, tape control skin or spar mill operator, teacher, building drafting officer, dependency case manager)? Give summary @ -No Was smoking cessation discussed for >3mins.? @ -No Was critical care preformed (if so, how long)? @ -No Were there social determinants of health that impacted care today? How? (Homelessness, low income, unemployed, alcoholism, drug addiction, transportation, low edu. Level, literacy, decrease access to med. care, half-way, rehab)? @ -No Was there de-escalation of care discussed even if they declined (Discuss DNR or withdrawal of care, Hospice)? DNR status @ -No What co-morbidities impacted this encounter? (DM, HTN, Smoking, COPD, CAD, Cancer, CVA, ARF, Chemo, Hep., AIDS, mental health diagnosis, sleep apnea, morbid obesity)? @alcohol use disorder Was patient admitted / discharged? Hospital course, mention meds given and route, prescriptions, significant lab abnormalities, going to OR and other pertinent info. @ -Patient presenting for chest pain. He is well-appearing in no apparent distress. EKG shows no evidence of acute ischemia. Troponin is 0.014, minimally bumped from last visit. Serum alcohol is 333. Patient requesting to leave he does have a ride home. Patient is clinically sober pain is atypical patient discharged Undiagnosed new problem with uncertain prognosis? @ -No Drug Therapy requiring intensive monitoring for toxicity (Heparin, Nitro, Insulin, Cardizem)? @ -No Were any procedures done? @ -No Diagnosis/symptom? @ atypical chest pain, alcohol intoxication Acute, or Chronic, or Acute on Chronic? @ acute Uncomplicated (without systemic symptoms) or Complicated (systemic symptoms)? uncomplicated Side effects of treatment? @ -No Exacerbation, Progression, or Severe Exacerbation? @ -No Poses a threat to life or bodily function? How? (Chest pain, [place], [place], pneumonia, PE, COPD, DKA, ARF, appy, cholecystitis, CVA, Diverticulitis, Homicidal, Suicidal, threat to staff... and all critical care pts) @ -No Dr. Li is my attending Disposition Clinical Impression: Atypical chest pain, Alcohol intoxication Disposition: HOME SELF-CARE Condition: Good Instructions (If sedation given, give patient instructions): Chest Pain (ED) Additional Instructions: Please follow-up with your primary care provider in 1-2 days. Return to the emergency department if you experience new, concerning, or worsening symptoms. Is patient prescribed a controlled substance at d/c from ED?: No Referrals: Steffanie Rooney MD [Primary Care Provider] - 1-2 days
--- NOTE | 2023-05-05 11:24 | XR ---
EXAMINATION TYPE: XR chest 2V DATE OF EXAM: 05/05/2023 11:15 AM COMPARISON: Chest radiographs from 07/18/2022 TECHNIQUE: XR chest 2V Frontal and lateral views of the chest. CLINICAL INDICATION:Male, 52 years old with history of Chest Pain; FINDINGS: Lungs/Pleura: There is no evidence of pleural effusion, focal consolidation, or pneumothorax. Pulmonary vascularity: Unremarkable. Heart/mediastinum: Cardiomediastinal silhouette is unremarkable. Musculoskeletal: No acute osseous pathology. IMPRESSION: 1. No acute cardiopulmonary disease process. 2. COPD changes.
[2023-05-05 11:32] LABS: ALT 32 U/L (4-49); AST 54 U/L (17-59); African American GFR (CKD) >90 (>60 ml/min/1.73 sqM); Albumin 4.4 g/dL (3.5-5.0); Alkaline Phosphatase 74 U/L (38-126); Anion Gap 14 mmol/L; Blood Urea Nitrogen 7 mg/dL (9-20); Calcium 8.5 mg/dL (8.4-10.2); Carbon Dioxide 24 mmol/L (22-30); Chloride 102 mmol/L (98-107); Glucose 95 mg/dL (74-99); Lipase 102 U/L (23-300); Magnesium 1.8 mg/dL (1.6-2.3); Non-African American GFR(CKD) >90 (>60 ml/min/1.73 sqM); Sodium 140 mmol/L (137-145); Total Bilirubin 0.7 mg/dL (0.2-1.3); Total Protein 7.6 g/dL (6.3-8.2)
[2023-05-05 11:40] LABS: INR 0.9 (<1.2); Partial Thromboplastin Time 22.4 sec (22.0-30.0); Prothrombin Time 9.8 sec (9.0-12.0)
[2023-05-05 11:48] LABS: Potassium 4.5 mmol/L (3.5-5.1)
[2023-05-05 12:09] VITALS: BP 148/96; PULSE 82
[2023-05-05 12:20] LABS: Appearance,Urine Clear (Clear); Bilirubin,Urine Negative (Negative); Blood,Urine Negative (Negative); Color,Urine Light Yellow; Glucose,Urine (UA) Negative (Negative); Ketones,Urine Negative (Negative); Leukocyte Esterase,Urine Negative (Negative); Nitrite,Urine Negative (Negative); PH, Urine 5.5 (5.0-8.0); Protein,Urine Negative (Negative); Specific Gravity,Urine 1.005 (1.001-1.035); Urobilinogen,Urine <2.0 mg/dL (<2.0)
[2023-05-05 15:26] LABS: Alcohol 333 mg/dL
== END 2023-05-05 12:12 | disposition home or self-care (01) ==
LOC: EC 10:35
DX: R07.89 Other chest pain (principal); F10.129 Alcohol abuse with intoxication, unspecified; J44.9 Chronic obstructive pulmonary disease, unspecified; Z86.59 Personal history of other mental and behavioral disorders; Y90.8 Blood alcohol level of 240 mg/100 ml or more
CPT/HCPCS: 36415; 93005; 80053; 83690; 83735; 84484; 85025; 85610; 85730; 81003; 71046; 99285; 96374; 96361; G0480; J1885; 80320

== ENCOUNTER 2023-11-05 10:05 | Emergency (ER) | payer OTHER ==
--- NOTE | 2023-11-05 10:29 | ED ---
Lower Extremity Injury HPI - General Chief Complaint: Extremity Injury, Lower Stated Complaint: L Leg Injury, kicked object Time Seen by Provider: 11/05/23 10:27 Source: patient, RN notes reviewed Mode of arrival: ambulatory Limitations: no limitations - History of Present Illness Initial Comments: Patient's 53-year-old male presented ER with a chief complaint of left lower extremity injury. Patient states he got angry when a soda can first and started spreading everywhere. Patient then kicked a bench with his left leg. Patient states he having pain over his left tib-fib. He does state that he is able to walk but is extremely painful and he is worried he broke something. Patient does report prior surgeries with rods and pins. Patient also is reporting left hand injury but does not want x-rays. Patient denies any other injuries. Patient does state that he is an alcoholic and is on Vivitrol. Denies any fevers, chills, night sweats, chest pain, shortness of breath. - Related Data Home Medications Medication Instructions Recorded Confirmed No Known Home Medications 05/05/23 05/05/23 Allergies Allergy/AdvReac Type Severity Reaction Status Date / Time No Known Allergies Allergy Verified 11/05/23 10:19 Review of Systems ROS Statement: Those systems with pertinent positive or pertinent negative responses have been documented in the HPI. ROS Other: All systems not noted in ROS Statement are negative. Past Medical History Past Medical History: No Reported History Additional Past Medical History / Comment(s): ETOH abuse History of Any Multi-Drug Resistant Organisms: None Reported Past Surgical History: Hernia Repair, Orthopedic Surgery Additional Past Surgical History / Comment(s): eye surgery at 12 years, left inguinal hernia repair Past Anesthesia/Blood Transfusion Reactions: No Reported Reaction Past Psychological History: Anxiety, Depression Smoking Status: Never smoker Past Alcohol Use History: Abuse, Daily, Heavy Past Drug Use History: None Reported General Exam Limitations: no limitations General appearance: alert, appears intoxicated (odor of alcohol on breath) Head exam: Present: atraumatic, normocephalic, normal inspection Respiratory exam: Present: normal lung sounds bilaterally. Absent: respiratory distress, wheezes, rales, rhonchi, stridor Cardiovascular Exam: Present: regular rate, normal rhythm, normal heart sounds. Absent: systolic murmur, diastolic murmur, rubs, gallop, clicks Extremities exam: Present: tenderness (Tenderness and ecchymosis, edema over her medial tib-fib on the left. Patient has full range of motion of knee and ankle. 2+ left DP pulse. Sensation intact.), other (Tenderness to left second MCP. No erythema, ecchymosis. 2+ left radial pulse. Sensation intact. No noticeable deformity.) Neurological exam: Present: alert, oriented X3, CN II-XII intact Psychiatric exam: Present: normal affect, normal mood Skin exam: Present: warm, dry, intact, normal color. Absent: rash Course Vital Signs 11/05/23 10:15 Temperature 97.7 F Pulse Rate 106 H Respiratory 20 Rate Blood Pressure 149/63 O2 Sat by Pulse 98 Oximetry Medical Decision Making - Medical Decision Making Was pt. sent in by a medical professional or institution (Dr. PA, LEISURE STUDIES PROFESSOR, urgent care, hospital, or [facility]...) When possible be specific @ -No Did you speak to anyone other than the patient for history (EMS, parent, family, police, friend...)? What history was obtained from this source @ -No Did you review nursing and triage notes (agree or disagree)? Why? @ -I reviewed and agree with nursing and triage notes Were old charts reviewed (outside hosp., previous admission, EMS record, old EKG, old radiological studies, urgent care reports/EKG's, [facility] records)? Report findings @ -No old charts were reviewed Differential Diagnosis (chest pain, altered mental status, abdominal pain women, abdominal pain men, vaginal bleeding, weakness, fever, dyspnea, syncope, headache, dizziness, GI bleed, back pain, seizure, CVA, palpatations, mental health, musculoskeletal)? @ -Differential Musculoskeletal Muscular strain, contusion, ligament sprain, fracture, arthritis, septic arthritis, bursitis, cellulitis, muscle spasm, nerve compression, DVT, arterial occlusion, herpes zoster, electrolyte abnormality, tumor.... This is not meant to be in all inclusive list EKG interpreted by me (3pts min.). @ -None X-rays interpreted by me (1pt min.). @ -Left tib-fib x-rays interpreted by me show no acute fractures or dislocations. CT interpreted by me (1pt min.). @ -None done U/S interpreted by me (1pt. min.). @ -None done What testing was considered but not performed or refused? (CT, X-rays, U/S, labs)? Why? @ -X-ray of left hand was offered but patient refused. What meds were considered but not given or refused? Why? @ -I offered analgesics patient refused. Did you discuss the management of the patient with other professionals (professionals i.e. , PA, LEISURE STUDIES PROFESSOR, lab, RT, psych nurse, bilingual social worker, car dryer, teacher, air intelligence officer, binder caser)? Give summary @ -No Was smoking cessation discussed for >3mins.? @ -No Was critical care preformed (if so, how long)? @ -No Were there social determinants of health that impacted care today? How? (Homelessness, low income, unemployed, alcoholism, drug addiction, transportation, low edu. Level, literacy, decrease access to med. care, retirement, rehab)? @ -Alcoholism, rehab Was there de-escalation of care discussed even if they declined (Discuss DNR or withdrawal of care, Hospice)? DNR status @ -No What co-morbidities impacted this encounter? (DM, HTN, Smoking, COPD, CAD, Cancer, CVA, ARF, Chemo, Hep., AIDS, mental health diagnosis, sleep apnea, morbid obesity)? @ -None Was patient admitted / discharged? Hospital course, mention meds given and route, prescriptions, significant lab abnormalities, going to OR and other pertinent info. @ -Discharge. Patient is a 53-year-old male presented to ER with a chief complaint of left leg injury. Vitals stable. History and physical exam were completed. Patient's left lower and upper extremities were neurovascularly intact. Patient was in no signs of acute distress. Patient did have an odor of alcohol on his breath. Patient refused x-ray of left hand. Left tib-fib x-rays interpreted by me shows no acute fractures or dislocations. I advised patient to return to ER if left hand pain does not improve or it worsens. Patient's left leg will be wrapped in an JEFFERSON bandage prior to discharge. Return parameters were discussed. I advised him to use [id number] Tylenol and Motrin for pain control. Patient will be discharged in stable condition with follow-up to PCP. Patient expressed understanding and agreement with care plan. Undiagnosed new problem with uncertain prognosis? @ -No Drug Therapy requiring intensive monitoring for toxicity (Heparin, Nitro, Insulin, Cardizem)? @ -No Were any procedures done? @ -No Diagnosis/symptom? @ -Muscle contusion Acute, or Chronic, or Acute on Chronic? @ -Acute Uncomplicated (without systemic symptoms) or Complicated (systemic symptoms)? @ -Uncomplicated Side effects of treatment? @ -No Exacerbation, Progression, or Severe Exacerbation? @ -No Poses a threat to life or bodily function? How? (Chest pain, [place], [place], pneumonia, PE, COPD, DKA, ARF, appy, cholecystitis, CVA, Diverticulitis, Homicidal, Suicidal, threat to staff... and all critical care pts) @ -No - Radiology Data Radiology results: report reviewed, image reviewed Disposition Clinical Impression: Muscle contusion Disposition: HOME SELF-CARE Condition: Stable Additional Instructions: Please return to the ER for any new or worsening symptoms. Is patient prescribed a controlled substance at d/c from ED?: No Referrals: Steffanie Rooney MD [Primary Care Provider] - 1-2 days Time of Disposition: 11:42
[2023-11-05 10:53] VITALS: RESP 20
--- NOTE | 2023-11-05 10:58 | XR ---
EXAMINATION TYPE: XR tibia fibula 2 views LT DATE OF EXAM: 11/05/2023 Comparison: None Clinical History: 53-year-old male with pain after injury Findings: Antegrade intramedullary nail across the tibia. Old healed fracture deformities proximal fibular shaf t and distal third tibial shaft. Knee and ankle articulations appear grossly intact. No acute fractur e seen. Impression: Old healed fractures of the proximal fibular shaft and distal tibial shaft with intact intramedullary nail fixation. No acute osseous abnormality seen.
[2023-11-05 12:13] VITALS: BP 138/79; PULSE 98; TEMP 98
== END 2023-11-05 11:53 | disposition home or self-care (01) ==
LOC: EC 10:05
DX: S82.832A Other fracture of upper and lower end of left fibula, initial encounter for closed fracture (principal); Z86.59 Personal history of other mental and behavioral disorders; W22.8XXA Striking against or struck by other objects, initial encounter
CPT/HCPCS: 99283

== ENCOUNTER 2024-09-20 00:45 | Emergency (ER) | payer OTHER ==
--- NOTE | 2024-09-20 02:24 | ED ---
General Adult HPI - General Source: patient, police Mode of arrival: ambulatory Limitations: no limitations <Juan Alaniz - Last Filed: 09/20/24 06:41> <Beltran Noland - Last Filed: 09/20/24 10:57> - General Chief complaint: Psychiatric Symptoms Stated complaint: Mental Health Time Seen by Provider: 09/20/24 00:52 - History of Present Illness Initial comments: Dictation was produced using [employer] dictation software. please excuse any grammatical, word or spelling errors. Chief Complaint: 54-year-old male with suicidal ideation History of Present Illness: Patient is a 54-year-old alcoholic male presents to the emergency department for suicidal ideation states he feels suicidal when he drinks. Denies suicidality at this time. Patient has no plan. Denies homicidal ideation. No visual auditory hallucinations. Patient states he drinks large amounts of liquor daily. He has had withdrawals in the past. He has no intention of quitting alcohol. The ROS documented in this emergency department record has been reviewed and confirmed by me. Those systems with pertinent positive or negative responses have been documented in the HPI. All other systems are other negative and/or noncontributory. (Juan Alaniz) - Related Data Home Medications Medication Instructions Recorded Confirmed No Known Home Medications 05/05/23 05/05/23 Allergies Allergy/AdvReac Type Severity Reaction Status Date / Time No Known Allergies Allergy Verified 09/20/24 00:50 Review of Systems ROS Other: All systems not noted in ROS Statement are negative. <Juan Alaniz - Last Filed: 09/20/24 06:41> ROS Other: All systems not noted in ROS Statement are negative. <Beltran Noland - Last Filed: 09/20/24 10:57> ROS Statement: Those systems with pertinent positive or pertinent negative responses have been documented in the HPI. Past Medical History Past Medical History: No Reported History Additional Past Medical History / Comment(s): ETOH abuse History of Any Multi-Drug Resistant Organisms: None Reported Past Surgical History: Hernia Repair, Orthopedic Surgery Additional Past Surgical History / Comment(s): eye surgery at 12 years, left inguinal hernia repair Past Anesthesia/Blood Transfusion Reactions: No Reported Reaction Past Psychological History: Anxiety, Depression Smoking Status: Never smoker Past Alcohol Use History: Abuse, Daily Past Drug Use History: None Reported <Juan Alaniz - Last Filed: 09/20/24 06:41> General Exam Limitations: no limitations <Juan Alaniz - Last Filed: 09/20/24 06:41> - General Exam Comments Initial Comments: General: Well-appearing, nontoxic, no acute distress. Head: Normocephalic, atraumatic Eyes: PERRLA, EOMI ENT: Airway patent Chest: Nonlabored breathing Skin: No visual rash, normal skin tone Neuro: Alert and oriented 3 Musculoskeletal: No gross abnormalities (Juan Alaniz) Course Vital Signs 09/20/24 09/20/24 00:47 06:00 Temperature 97.4 F L 97.6 F Pulse Rate 83 74 Respiratory 16 19 Rate Blood Pressure 144/89 100/63 O2 Sat by Pulse 97 95 Oximetry Medical Decision Making <Juan Alaniz - Last Filed: 09/20/24 06:41> <Beltran Noland - Last Filed: 09/20/24 10:57> - Medical Decision Making Was pt. sent in by a medical professional or institution ([facility], DOOR CORE ASSEMBLER, urgent care, hospital, or residential...) When possible be specific @ -No Did you speak to anyone other than the patient for history (EMS, parent, family, police, friend...)? What history was obtained from this source @ -No Did you review nursing and triage notes (agree or disagree)? Why? @ -I reviewed and agree with nursing and triage notes Were old charts reviewed (outside hosp., previous admission, EMS record, old EKG, old radiological studies, urgent care reports/EKG's, residential records)? Report findings @ -No old charts were reviewed Differential Diagnosis (chest pain, altered mental status, abdominal pain women, abdominal pain men, vaginal bleeding, musculoskeletal, weakness, fever, dyspnea, syncope, headache, dizziness, GI bleed, back pain, seizure, CVA, palpatations, mental health)? @ -Differential Mental Health: Depression, anxiety, bipolar, psychosis, schizophrenia, borderline personality, situational depression, adjustment disorder, behavioral disorder, brain tumor, malingering, substance abuse, encephalopathy, medication reaction, dementia, hypothyroidism, degenerative neurologic disorder, lupus.... This is not meant to be all-inclusive list EKG interpreted by me (3pts min.). @ -None done X-rays interpreted by me (1pt min.). @ -None done CT interpreted by me (1pt min.). @ -None done U/S interpreted by me (1pt. min.). @ -None done What testing was considered but not performed or refused? (CT, X-rays, U/S, labs)? Why? @ -None What meds were considered but not given or refused? Why? @ -None Was smoking cessation discussed for >3mins.? @ -No Were there social determinants of health that impacted care today? How? (Homelessness, low income, unemployed, alcoholism, drug addiction, transportation, low edu. Level, literacy, decrease access to med. care, residential, rehab)? @ -No Was there de-escalation of care discussed even if they declined (Discuss DNR or withdrawal of care, Hospice)? DNR status @ -No What co-morbidities impacted this encounter? (DM, HTN, Smoking, COPD, CAD, Cancer, CVA, ARF, Chemo, Hep., AIDS, mental health diagnosis, sleep apnea, morbid obesity)? @ -None Was patient admitted / discharged? Hospital course, mention meds given and route, prescriptions, significant lab abnormalities, going to OR and other pertinent info. @ -54-year-old alcoholic male presents with suicidal ideation. Vital signs stable. Physical examination is benign. Patient has elevated breath alcohol test. Pending sobriety for EPS evaluation. Patient care signed out to oncoming physician for follow-up of EPS recommendations Did you discuss the management of the patient with other professionals (pro fessionals i.e. , PA, DOOR CORE ASSEMBLER, lab, RT, psych nurse, group social worker, editor magazine, teacher, job placement officer, family preservation caseworker)? Give summary @ -No Was critical care preformed (if so, how long)? @ -No Undiagnosed new problem with uncertain prognosis? @ -No Drug Therapy requiring intensive monitoring for toxicity (Heparin, Nitro, Insulin, Cardizem)? @ -No Were any procedures done? @ -No Diagnosis/symptom? Acute, or Chronic, or Acute on Chronic? Uncomplicated (without systemic symptoms) or Complicated (systemic symptoms)? @ -Alcohol intoxication, suicidal ideation Side effects of treatment? @ -No Exacerbation, Progression, or Severe Exacerbation? @ -No Poses a threat to life or bodily function? How? (Chest pain, [place], [place], pneumonia, PE, COPD, DKA, ARF, appy, cholecystitis, CVA, Diverticulitis, Homicidal, Suicidal, threat to staff... and all critical care pts) @ -yes (Juan Alaniz) Patient medically cleared after sobriety and was evaluated by EPS. Has signed a safety plan is and is felt to be safe for discharge. (Beltran Noland) - Lab Data Lab Results 09/20/24 09/20/24 Range/Units 04:05 08:52 Urine Opiates Screen Not Detected (NotDetected) Ur Oxycodone Screen Not Detected (NotDetected) Urine Methadone Screen Not Detected (NotDetected) Ur Barbiturates Screen Not Detected (NotDetected) U Tricyclic Antidepress Not Detected (NotDetected) Ur Phencyclidine Scrn Not Detected (NotDetected) Ur Amphetamines Screen Not Detected (NotDetected) U Methamphetamines Scrn Not Detected (NotDetected) U Benzodiazepines Scrn Not Detected (NotDetected) Urine Cocaine Screen Not Detected (NotDetected) U Marijuana (THC) Screen Not Detected (NotDetected) Influenza Type A (PCR) Not Detected (Not Detectd) Influenza Type B (PCR) Not Detected (Not Detectd) RSV (PCR) Not Detected (Not Detectd) SARS-CoV-2 (PCR) Not Detected (Not Detectd) Disposition <Juan Alaniz - Last Filed: 09/20/24 06:41> Is patient prescribed a controlled substance at d/c from ED?: No Time of Disposition: 10:57 <Beltran Noland - Last Filed: 09/20/24 10:57> Clinical Impression: Depression Disposition: HOME SELF-CARE Condition: Fair Instructions (If sedation given, give patient instructions): Depression (ED) Referrals: Steffanie Rooney MD [Primary Care Provider] - 1-2 days
[2024-09-20 06:02] VITALS: TEMP 97.6
[2024-09-20 08:34] LABS: Cocaine Screen,Urine Not Detected (NotDetected); Opiate Screen,Urine Not Detected (NotDetected); Phencyclidine Screen,Urine Not Detected (NotDetected); Urn Cannabinoid Scrn Not Detected (NotDetected)
[2024-09-20 08:35] LABS: Amphetamine Screen,Urine Not Detected (NotDetected); Barbiturate Screen,Urine Not Detected (NotDetected); Benzodiazepines Screen,Urine Not Detected (NotDetected); Methadone Screen, Urine Not Detected (NotDetected); Oxycodone Screen, Urine Not Detected (NotDetected); Tricyclic Antidepressant,Urine Not Detected (NotDetected)
[2024-09-20 11:30] VITALS: BP 124/74; PULSE 84; RESP 18
== END 2024-09-20 11:40 | disposition home or self-care (01) ==
LOC: EC 00:45
DX: F32.A Depression, unspecified (principal); Z11.52 Encounter for screening for COVID-19
CPT/HCPCS: 80306; 82075; 87636; 99285

== ENCOUNTER 2024-09-24 20:54 | Observation (INO) | payer OTHER ==
--- NOTE | 2024-09-24 23:07 | ED ---
Psych HPI - General Chief Complaint: Psychiatric Symptoms Stated Complaint: Petition Time Seen by Provider: 09/24/24 21:00 Source: patient, police Mode of arrival: ambulatory - History of Present Illness Initial Comments: 54-year-old male presents emergency department petitioned by police. He called police simeon saying that he was going to jump into the river. Patient is acutely intoxicated. States he drinks approximately 20 beers per day. He does have plans to go to [place] on Wednesday. He was drinking tonight, last drink around 5 PM. Then had thoughts of about killing himself. Patient has been seen previously for same complaint. He denies any attempt at harming himself tonight. Denies intravenous drug use. No other alleviating, precipitating or modifying factors - Related Data Home Medications Medication Instructions Recorded Confirmed No Known Home Medications 05/05/23 05/05/23 Allergies Allergy/AdvReac Type Severity Reaction Status Date / Time No Known Allergies Allergy Verified 09/24/24 21:00 Review of Systems ROS Statement: Those systems with pertinent positive or pertinent negative responses have been documented in the HPI. ROS Other: All systems not noted in ROS Statement are negative. Past Medical History Past Medical History: No Reported History Additional Past Medical History / Comment(s): ETOH abuse History of Any Multi-Drug Resistant Organisms: None Reported Past Surgical History: Hernia Repair, Orthopedic Surgery Additional Past Surgical History / Comment(s): eye surgery at 12 years, left inguinal hernia repair Past Anesthesia/Blood Transfusion Reactions: No Reported Reaction Past Psychological History: Anxiety, Depression Smoking Status: Never smoker Past Alcohol Use History: Abuse, Daily Past Drug Use History: None Reported General Exam Limitations: altered mental status General appearance: appears intoxicated Head exam: Present: atraumatic, normocephalic, normal inspection Eye exam: Present: normal appearance, PERRL, EOMI. Absent: scleral icterus, conjunctival injection, periorbital swelling ENT exam: Present: normal exam, mucous membranes moist Neck exam: Present: normal inspection. Absent: tenderness, meningismus, lymphadenopathy Respiratory exam: Present: normal lung sounds bilaterally. Absent: respiratory distress, wheezes, rales, rhonchi, stridor Cardiovascular Exam: Present: regular rate, normal rhythm, normal heart sounds. Absent: systolic murmur, diastolic murmur, rubs, gallop, clicks GI/Abdominal exam: Present: soft, normal bowel sounds. Absent: distended, tenderness, guarding, rebound, rigid Neurological exam: Present: altered Psychiatric exam: Present: depressed, suicidal ideation Course Vital Signs 09/24/24 20:56 Temperature 97.4 F L Pulse Rate 91 Respiratory 16 Rate Blood Pressure 168/107 O2 Sat by Pulse 97 Oximetry Medical Decision Making - Medical Decision Making Was pt. sent in by a medical professional or institution (, [facility], OUTBO[employer] MOTOR MECHANIC, urgent care, hospital, or residential...) When possible be specific @ -Patient was brought in by police Did you speak to anyone other than the patient for history (EMS, parent, family, police, friend...)? What history was obtained from this source @ -I spoke with police for history Did you review nursing and triage notes (agree or disagree)? Why? @ -I reviewed and agree with nursing and triage notes Were old charts reviewed (outside hosp., previous admission, EMS record, old EKG, old radiological studies, urgent care reports/EKG's, residential records)? Report findings @ -I reviewed previous ED admission from 2021 where patient went into significant DTs and required ICU evaluation Differential Diagnosis (chest pain, altered mental status, abdominal pain women, abdominal pain men, vaginal bleeding, weakness, fever, dyspnea, syncope, headache, dizziness, GI bleed, back pain, seizure, CVA, palpatations, mental health, musculoskeletal)? @ -Differential Mental Health Depression, anxiety, bipolar, psychosis, schizophrenia, borderline personality, situational depression, adjustment disorder, behavioral disorder, brain tumor, malingering, substance abuse, encephalopathy, medication reaction, dementia, hypothyroidism, degenerative neurologic disorder, lupus.... This is not meant to be all-inclusive list EKG interpreted by me (3pts min.). @ -Not done X-rays interpreted by me (1pt min.). @ -None done CT interpreted by me (1pt min.). @ -None done U/S interpreted by me (1pt. min.). @ -None done What testing was considered but not performed or refused? (CT, X-rays, U/S, lab s)? Why? @ -None What meds were considered but not given or refused? Why? @ -None Did you discuss the management of the patient with other professionals (professionals i.e. , PA, OUTBOARD MOTOR MECHANIC, lab, RT, psych nurse, psychotherapist social worker, unix manager, teacher, customs and immigration officer, immigration case manager)? Give summary @ -Spoke with Madiha from [facility] for admission Was smoking cessation discussed for >3mins.? @ -No Was critical care preformed (if so, how long)? @ -No Were there social determinants of health that impacted care today? How? (Homelessness, low income, unemployed, alcoholism, drug addiction, transportation, low edu. Level, literacy, decrease access to med. care, alf, rehab)? @ -Alcohol abuse Was there de-escalation of care discussed even if they declined (Discuss DNR or withdrawal of care, Hospice)? DNR status @ -No What co-morbidities impacted this encounter? (DM, HTN, Smoking, COPD, CAD, Cancer, CVA, ARF, Chemo, Hep., AIDS, mental health diagnosis, sleep apnea, morbid obesity)? @ -Depression, alcohol abuse Was patient admitted / discharged? Hospital course, mention meds given and route, prescriptions, significant lab abnormalities, going to OR and other pertinent info. @ -Upon arrival patient seen and evaluated in bed 8. Thorough history and physical exam was performed. IV access was established. Patient significantly intoxicated at this time. He will be admitted on [facility] protocol. Psychiatry will be placed on consult. Patient admitted to the floor in stable condition Undiagnosed new problem with uncertain prognosis? @ -No Drug Therapy requiring intensive monitoring for toxicity (Heparin, Nitro, Insulin, Cardizem)? @ -No Were any procedures done? @ -No Diagnosis/symptom? @ -Acute alcohol intoxication, acute depression, suicidal ideations Acute, or Chronic, or Acute on Chronic? @ -Acute, recurrent Uncomplicated (without systemic symptoms) or Complicated (systemic symptoms)? @ -Complicated Side effects of treatment? @ -No Exacerbation, Progression, or Severe Exacerbation? @ -No Poses a threat to life or bodily function? How? (Chest pain, [place], [place], pneumonia, PE, COPD, DKA, ARF, appy, cholecystitis, CVA, Diverticulitis, Homicidal, Suicidal, threat to staff... and all critical care pts) @ -Yes as patient is reporting to suicidal ideations - Lab Data Result diagrams: 09/24/24 23:36 09/24/24 23:36 Lab Results 09/24/24 09/24/24 Range/Units 23:36 23:36 WBC 5.5 (3.8-10.6) k/uL RBC 5.65 (4.30-5.90) m/uL Hgb 16.6 (13.0-17.5) gm/dL Hct 49.8 (39.0-53.0) % MCV 88.2 (80.0-100.0) fL MCH 29.3 (25.0-35.0) pg MCHC 33.3 (31.0-37.0) g/dL RDW 13.2 (11.5-15.5) % Plt Count 280 (150-450) k/uL MPV 6.4 Neutrophils % 43 % Lymphocytes % 45 % Monocytes % 5 % Eosinophils % 3 % Basophils % 2 % Neutrophils # 2.3 (1.3-7.7) k/uL Lymphocytes # 2.5 (1.0-4.8) k/uL Monocytes # 0.3 (0-1.0) k/uL Eosinophils # 0.2 (0-0.7) k/uL Basophils # 0.1 (0-0.2) k/uL Sodium 141 (137-145) mmol/L Potassium 4.2 (3.5-5.1) mmol/L Chloride 102 (98-107) mmol/L Carbon Dioxide 24 (22-30) mmol/L Anion Gap 15 mmol/L BUN 10 (9-20) mg/dL Creatinine 0.72 (0.66-1.25) mg/dL Est GFR (CKD-EPI)AfAm >90 (>60 ml/min/1.73 sqM) Est GFR (CKD-EPI)NonAf >90 (>60 ml/min/1.73 sqM) Glucose 77 (74-99) mg/dL Calcium 9.0 (8.4-10.2) mg/dL Total Bilirubin 0.7 (0.2-1.3) mg/dL AST 48 (17-59) U/L ALT 25 (4-49) U/L Alkaline Phosphatase 78 (38-126) U/L Total Protein 7.6 (6.3-8.2) g/dL Albumin 4.8 (3.5-5.0) g/dL Serum Alcohol 337 H* mg/dL Disposition Clinical Impression: Alcohol intoxication, Suicidal ideation, Depression Disposition: ADMITTED IP TO THIS HOSP Condition: Stable Is patient prescribed a controlled substance at d/c from ED?: No Referrals: Steffanie Rooney MD [Primary Care Provider] - 1-2 days Time of Disposition: 00:40 Decision to Admit Reason: Admit from EC Decision Date: 09/25/24 Decision Time: 00:40
[2024-09-24 23:45] LABS: Basophils # (A) 0.1 k/uL (0-0.2); Basophils % (A) 2 %; Eosinophils # (A) 0.2 k/uL (0-0.7); Eosinophils % (A) 3 %; HCT 49.8 % (39.0-53.0); HGB 16.6 gm/dL (13.0-17.5); Lymphocytes # (A) 2.5 k/uL (1.0-4.8); Lymphocytes % (A) 45 %; MCH 29.3 pg (25.0-35.0); MCHC 33.3 g/dL (31.0-37.0); MCV 88.2 fL (80.0-100.0); Mean Platelet Volume 6.4; Monocytes # (A) 0.3 k/uL (0-1.0); Monocytes % (A) 5 %; Neutrophils # (A) 2.3 k/uL (1.3-7.7); Neutrophils % (A) 43 %; Platelet Count 280 k/uL (150-450); RBC 5.65 m/uL (4.30-5.90); RDW 13.2 % (11.5-15.5); WBC 5.5 k/uL (3.8-10.6)
[2024-09-25] LABS: ALT 25 U/L (4-49); AST 48 U/L (17-59); African American GFR (CKD) >90 (>60 ml/min/1.73 sqM); Albumin 4.8 g/dL (3.5-5.0); Alkaline Phosphatase 78 U/L (38-126); Anion Gap 15 mmol/L; Blood Urea Nitrogen 10 mg/dL (9-20); Carbon Dioxide 24 mmol/L (22-30); Chloride 102 mmol/L (98-107); Glucose 77 mg/dL (74-99); Non-African American GFR(CKD) >90 (>60 ml/min/1.73 sqM); Potassium 4.2 mmol/L (3.5-5.1); Sodium 141 mmol/L (137-145); Total Bilirubin 0.7 mg/dL (0.2-1.3); Total Protein 7.6 g/dL (6.3-8.2)
[2024-09-25 00:15] LABS: Alcohol 337 mg/dL
[2024-09-25] MEDS ORDERED: NALOXONE 0.4 MG/ML 1 ML VIAL IV PRN (00:41)
[2024-09-25] MEDS ORDERED: ONDANSETRON 4 MG/2 ML VIAL IVP PRN (00:41)
[2024-09-25] MEDS ORDERED: LORazepam 2 MG/ML INJ IV PRN (00:42)
[2024-09-25] MEDS: SODIUM CHLORIDE 0.9% 1,000 ML IV SCH (00:50)
[2024-09-25] MEDS: PANTOPRAZOLE 40 MG/10 ML VIAL IV SCH (10:51)
[2024-09-25] MEDS: LORazepam 2 MG/ML INJ IV PRN ×2 (10:57→20:23)
--- NOTE | 2024-09-25 11:48 | P.HPIM ---
History of Present Illness 54-year-old male was brought in by police after he said he has been given Benadryl with him he is feeling down. Patient is intoxicated with alcohol patient drinks about 16-18 beers a day patient's MCV is not elevated. Patient is presently not having any withdrawals patient is admitted for alcohol withdrawals and psychiatry evaluation. Patient denies any nausea vomiting abdominal pain patient likes to quit alcohol but was unsuccessful. REVIEW OF SYSTEMS: All other systems are negative except those mentioned in the HPI PHYSICAL EXAMINATION: GENERAL: The patient is alert and oriented x3, not in any acute distress. Well developed, well nourished. HEENT: Pupils are round and equally reacting to light. EOMI. No scleral icterus. No conjunctival pallor. Normocephalic, atraumatic. No pharyngeal erythema. No thyromegaly. CARDIOVASCULAR: S1 and S2 present. No murmurs, rubs, or gallops. PULMONARY: Chest is clear to auscultation, no wheezing or crackles. ABDOMEN: Soft, nontender, nondistended, normoactive bowel sounds. No palpable organomegaly. MUSCULOSKELETAL: No joint swelling or deformity. EXTREMITIES: No cyanosis, clubbing, or pedal edema. NEUROLOGICAL: Gross neurological examination did not reveal any focal deficits. SKIN: No rashes. Assessment and plan Alcohol intoxication patient is alert and better now and sober now Alcohol withdrawal patient will be monitored for withdrawal patient will be on Ativan CIWA protocol. Social work will be consulted. Alcohol dependence -Depression and suicidal ideation: Psychiatry evaluation DVT prophylaxis:-Early ambulation -Patient also with 1660 Past Medical History Past Medical History: No Reported History Additional Past Medical History / Comment(s): ETOH abuse History of Any Multi-Drug Resistant Organisms: None Reported Past Surgical History: Hernia Repair, Orthopedic Surgery Additional Past Surgical History / Comment(s): eye surgery at 12 years, left inguinal hernia repair Past Anesthesia/Blood Transfusion Reactions: No Reported Reaction Past Psychological History: Anxiety, Depression Smoking Status: Never smoker Past Alcohol Use History: Abuse, Daily Past Drug Use History: None Reported Medications and Allergies Home Medications Medication Instructions Recorded Confirmed Type Naltrexone Microspheres [VivitroL] 380 mg IM Q28D 09/25/24 09/25/24 History Venlafaxine HCl ER [Effexor Xr] 150 mg PO DAILY 09/25/24 09/25/24 History busPIRone HCl [Buspar] 10 mg PO TID 09/25/24 09/25/24 History Allergies Allergy/AdvReac Type Severity Reaction Status Date / Time No Known Allergies Allergy Verified 09/25/24 08:09 Physical Exam Vitals: Vital Signs Temp Pulse Resp BP Pulse Ox 09/25/24 04:00 98.4 F 104 H 18 105/64 94 L 09/24/24 20:56 97.4 F L 91 16 168/107 97 Intake and Output 09/24/24 09/25/24 09/25/24 22:59 06:59 14:59 Other: Weight 81.647 kg Results CBC & Chem 7: 09/24/24 23:36 09/24/24 23:36 Labs: Abnormal Lab Results - Last 24 Hours (Table) 09/24/24 Range/Units 23:36 Serum Alcohol 337 H* mg/dL
--- NOTE | 2024-09-25 13:34 | P.CN ---
Psychiatric Consult - . Consult date: 09/25/24 Consult:: 09/25/24 13:05 IDENTIFYING DATA: This patient is a 54-year-old male, currently , has 1 kid, he is unemployed, he lives in a three-quarter house recently kicked out REASON FOR REFERRAL: Psychiatry was consulted for suicidal ideations, depression HISTORY OF PRESENT ILLNESS: The patient presented to the hospital petitioned by police. According to petition patient was making suicidal statements about wanting to jump off a bridge and endorsing depression, alcohol intoxication/abuse. Patient apparently told in the ER that he was feeling suicidal to jump in the river, blood alcohol level was 337. Patient apparently has an upcoming [facility] appointment for rehab. He was seen today laying in bed agreeable to speak to keno writer. He appeared to be disheveled in appearance, poor eye contact, vague evasive. Minimizing his depression. States that he has been feeling depressed, anxiety endorsing anxiety. States that he has a history of PTSD as well. Claims that he called the police because "I wanted to talk to somebody" and states that the police brought him into the hospital. He claims that he has been drinking about 18-20 beers a day. States that he was recently kicked out of the three-quarter house where he was staying at due to drinking. Claims that he is having an increase in his depression and anxiety. States that he is dealing with housing instability, also has improperly dealt with the grief from his mother's passing. At this time he is endorsing poor sleep, claims that he has a lot of dreams and nightmares, also endorsing poor appetite, minimizing his drinking at this time. At this time patient denies any current suicidal or homical ideations, intent or plan. Patient denies any auditory, visual hallucinations and denies any paranoia or delusions. Patients admits to using beer/alcohol as noted above. Claims that he started drinking at the age of 14, has been to rehab 12 times in the past. Denies any other recreational drug use. States that he is having withdrawal symptoms at this time, including shakes, anxiety and restlessness. Denies any history of DTs or withdrawal seizures PAST PSYCHIATRIC HISTORY: Patient has a a history of depression, PTSD and alcohol use. He is currently on BuSpar and Effexor patient denies any previous psychiatric hospitalizations. Patient denies any psychiatric outpatient follow- up. Patient denies any history of suicide attempts in the past. Past Medical History: No Reported History Additional Past Medical History / Comment(s): ETOH abuse History of Any Multi-Drug Resistant Organisms: None Reported Past Surgical History: Hernia Repair, Orthopedic Surgery Additional Past Surgical History / Comment(s): eye surgery at 12 years, left inguinal hernia repair Past Anesthesia/Blood Transfusion Reactions: No Reported Reaction Past Psychological History: Anxiety, Depression Smoking Status: Never smoker Past Alcohol Use History: Abuse, Daily Past Drug Use History: None Reported ALLERGIES: as per EMR. CHEMICAL DEPENDENCY HISTORY: as per HPI. FAMILY PSYCHIATRIC/SUBSTANCE USE HISTORY: Denies SOCIAL HISTORY: Patient was born and raised in [facility]. Claims that he completed after the 10th grade in school. 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 Currently unemployed at this time, he is , he has 1 kid, he was recently kicked out of a three-quarter house. Claims that he went to [facility] about 4 times in the past for a DUI. MENTAL STATUS EXAM: General Appearance: Patient appears to be poor eye contact, disheveled appearance, stated age is alert, uncooperative. Patient appears to have poor hygiene and grooming wearing hospital gown with poor eye contact. Behavior: Patient is calmly lying in bed without any agitated behavior. Evasive, guarded Speech: Patient's speech is fluent and nonpressured. [place] Mood/Affect: Patient reports their mood is "depressed and anxious", affect is congruent and constricted Suicidality/Homicidality: Patient denies having any suicidal or homicidal ideation intent or plan. Perceptions: Patient denies any visual hallucinations and denies any auditory hallucinations Though content/process: There is no evidence of any delusional thought content and thought process is linear and goal-directed. Minimizing his need for hospitalization and also alcohol use Memory and concentration: AOX3, grossly intact for the purposes of this session. Can spell "WORLD" backwards Judgment and insight: Poor IMPRESSIONS: Suicidal ideations Major depressive disorder, without psychotic features Anxiety disorder unspecified History of PTSD PLAN: -At this time patient DOES meet criteria for inpatient psychiatric admission once patient is medically cleared. -Would recommend the following medication changes/additions: Continue with current psychiatric medications as prescribed. Added Librium 25 mg 3 times daily scheduled plan to taper for alcohol withdrawal. -CIWA protocol with PRN Ativan for alcohol withdrawal. Continue to monitor vital signs. -Continue 1:1 sitter for safety until patient is safely transferred to the mental health unit. -Cannot leave AMA at this time. Patient will need a petition and certification if attempting to leave AMA. -Box Builder spoke with patient about substance abuse and the harmful effects on medical and mental health, patient verbally understood and agreed. -When medically stable, patient is eligible for transfer to a psych bed when available. -Communicated plan to patient's nurse -Psychiatry will sign off at this time -Please contact with any questions. 09/25/24 13:28
[2024-09-25] MEDS: chlordiazePOXIDE 25 MG CAP PO SCH (13:49)
[2024-09-25] MEDS: VENLAFAXINE HCL ER 150 MG CAP PO SCH (13:49)
[2024-09-25] MEDS: busPIRone HCl 10 MG TAB PO SCH (15:48)
[2024-09-25 21:05] LABS: Urine Alcohol Positive (Negative); Urine Barbiturate Negative (Negative); Urine Cocaine Negative (Negative); Urine Methadone Negative (Negative); Urine Opiates Negative (Negative); Urine Phencyclidine Negative (Negative)
[2024-09-26] MEDS: ACETAMINOPHEN TAB 325 MG TAB PO PRN (04:20)
[2024-09-26 06:35] VITALS: RESP 18
[2024-09-26] MEDS: THIAMINE 100 MG TAB PO SCH (08:13)
[2024-09-26 10:18] LABS: Basophils # (A) 0.04 X 10*3/uL (0.00-0.10); Basophils % (A) 0.6 %; Eosinophils # (A) 0.16 X 10*3/uL (0.04-0.35); Eosinophils % (A) 2.5 %; HCT 44.6 % (39.6-50.0); HGB 15.5 g/dL (13.0-17.0); Lymphocytes # (A) 1.41 X 10*3/uL (0.90-5.00); MCH 29.6 pg (27.0-32.0); MCHC 34.8 g/dL (32.0-37.0); MCV 85.1 FL (80.0-97.0); Mean Platelet Volume 9.1 FL (9.5-12.2); Monocytes # (A) 0.65 X 10*3/uL (0.20-1.00); Monocytes % (A) 10.2 %; NRBC Per 100 WBC 0 X 10*3/uL (0.00-0.01); Neutrophils # (A) 4.12 X 10*3/uL (1.80-7.70); Neutrophils % (A) 64.4 %; Platelet Count 221 X 10*3/uL (140-440); RBC 5.24 X 10*6/uL (4.40-5.60); RDW 13.2 % (11.5-14.5)
[2024-09-26 13:03] LABS: Blood Urea Nitrogen 11.2 mg/dL (9.0-27.0); Calcium 8.8 mg/dL (8.7-10.3); Carbon Dioxide 25.8 mmol/L (21.6-31.8); Chloride 99 mmol/L (96-109); Glucose 82 mg/dL (70-110); Potassium 3.9 mmol/L (3.5-5.5); Sodium 138 mmol/L (135-145)
--- NOTE | 2024-09-26 14:27 | P.DS ---
Providers Date of admission: 09/25/24 00:42 Attending physician: Jarvis Ray Consults: 09/25/24 00:41 Consult Physician Urgent Consulting Provider: Psychiatry - [facility] Psych[facility]ry Consult Reason/Comments: suicidal, depression Do you want consulting provider notified?: Already Contacted Primary care physician: Steffanie Rooney Hospital Course: Final Diagnosis Alcohol intoxication patient is alert and better now and sober now Alcohol withdrawal patient will be monitored for withdrawal Social work will be consulted. Alcohol dependence -Depression and suicidal ideation: Psychiatry evaluation Discharge Disposition Patient is stable for discharge to inpatient psychiatric unit for evaluation and treatment. Hospital Course 54-year-old male was brought in by police after he said he has been feeling inc reasingly depressed with suicidal ideations. Patient is intoxicated with alcohol patient drinks about 16-18 beers a day patient's MCV is not elevated. Patient is presently not having any withdrawals patient is admitted for alcohol withdrawals and psychiatry evaluation. Patient denies any nausea vomiting abdominal pain patient likes to quit alcohol but was unsuccessful. He is not reporting any significant withdrawal symptoms at this time. He was evaluated by psychiatry secondary to the ideations without plan was recommended for inpatient psychiatric evaluation and treatment. Medically he is cleared will continue on oral Librium for now. He is stable for transfer to the psychiatric unit for evaluation. Please see medication reconciliation for a list of current medications. Thank you for allowing us to participate in the care of this patient. The impression and plan of care has been dictated by Jessica Dumont, Nurse Practitioner as directed. Dr. Binu MD I have performed a history and physical examination and medical decision making of this patient, discussed the same with the dictator, and agree with the dictators assessment and plan as written, documented as a scribe. Based on total visit time, I have performed more than 50% of this visit. Patient Condition at Discharge: Stable Plan - Discharge Summary New Discharge Prescriptions: New Pantoprazole [Protonix] 40 mg PO DAILY #30 tab Thiamine [Vitamin B-1] 100 mg PO DAILY tab chlordiazePOXIDE HCl [Librium] 25 mg PO TID cap Continue Venlafaxine HCl ER [Effexor XR] 150 mg PO DAILY busPIRone HCl [Buspar] 10 mg PO TID Discontinued Naltrexone Microspheres [VivitroL] 380 mg IM Q28D Discharge Medication List Venlafaxine HCl ER [Effexor XR] 150 mg PO DAILY 09/25/24 [History] busPIRone HCl [Buspar] 10 mg PO TID 09/25/24 [History] Pantoprazole [Protonix] 40 mg PO DAILY #30 tab 09/26/24 [Rx] Thiamine [Vitamin B-1] 100 mg PO DAILY tab 09/26/24 [Rx] chlordiazePOXIDE HCl [Librium] 25 mg PO TID cap 09/26/24 [Rx] Follow up Appointment(s)/Referral(s): Steffanie Rooney MD [Primary Care Provider] - 1-2 days Activity/Diet/Wound Care/Special Instructions: DISCHARGE TO PSYCH Discharge Disposition: TRANSFER TO PSYCH HOSP/UNIT
[2024-09-26 20:01] VITALS: BP 132/77; PULSE 77; TEMP 97.7
[2024-09-26] MEDS ORDERED: chlordiazePOXIDE 25 MG CAP PO STA (21:22)
[2024-09-26] MEDS: chlordiazePOXIDE 25 MG CAP PO STA (21:41)
== END 2024-09-26 21:45 ==
LOC: EC 20:54 → 6NMEDSUR 09-25 00:42
PROVIDERS: ADMIT Hospitalist; ATTEND Hospitalist
DX: F10.129 Alcohol abuse with intoxication, unspecified (principal); F32.9 Major depressive disorder, single episode, unspecified; F41.9 Anxiety disorder, unspecified; F43.10 Post-traumatic stress disorder, unspecified; R45.851 Suicidal ideations; Y90.8 Blood alcohol level of 240 mg/100 ml or more; Z59.819 Housing instability, housed unspecified; Z79.899 Other long term (current) drug therapy; Z56.0 Unemployment, unspecified
CPT/HCPCS: 96376 ×2; 82075; 96361 ×2; 96374; 96375; 99285; 36415; 80053; 80048; 85025 ×2; 80306; 87636; G0378 ×2; G0480; J2060 ×2; J2470 ×2; 80320

== ENCOUNTER 2024-09-26 21:14 | Inpatient (IN) | payer MEDICAID ==
[2024-09-26] MEDS ORDERED: MAGNESIUM HYDROXIDE 2,400 MG/30 ML CUP PO PRN (21:21)
[2024-09-26] MEDS ORDERED: MAG HYDROX/AL HYDROX/SIMETH 355 ML BOTTLE PO PRN (21:21)
[2024-09-26] MEDS ORDERED: LORazepam 2 MG/ML INJ IM PRN (21:21)
[2024-09-26] MEDS ORDERED: haloperidoL 5 MG TAB PO PRN (21:21)
[2024-09-26] MEDS ORDERED: HALOPERIDOL LACTATE 5 MG/ML 1 ML VIAL IM PRN (21:25)
[2024-09-26] MEDS: chlordiazePOXIDE 25 MG CAP PO SCH (21:31)
[2024-09-26] MEDS: busPIRone HCl 10 MG TAB PO SCH (21:31)
[2024-09-27 08:45] LABS: ALT 21 U/L (4-49); AST 33 U/L (17-59); Albumin 3.9 g/dL (3.5-5.0); Alkaline Phosphatase 87 U/L (38-126); Bilirubin,Unconjugated 0.7 mg/dL (0.0-1.1); Total Bilirubin 0.7 mg/dL (0.2-1.3); Total Protein 6.5 g/dL (6.3-8.2)
[2024-09-27] MEDS: THIAMINE 100 MG TAB PO SCH (09:21)
[2024-09-27] MEDS: VENLAFAXINE HCL ER 150 MG CAP PO SCH (09:21)
[2024-09-27] MEDS: PANTOPRAZOLE 40 MG TABLET PO SCH (09:21)
[2024-09-27] MEDS: NICOTINE 14MG/24HR PATCH TRANSDERM SCH (09:21)
--- NOTE | 2024-09-27 13:20 | P.HP ---
Psychiatric H&P - . H&P Date: 09/27/24 History & Physical: Allergies Allergy/AdvReac Type Severity Reaction Status Date / Time No Known Allergies Allergy Verified 09/25/24 08:09 Vital Signs Temp 98.0 F 09/26/24 22:37 Pulse 91 09/27/24 06:06 Resp 16 09/26/24 22:37 BP 132/75 09/27/24 06:06 Pulse Ox 97 09/26/24 22:37 FiO2 Intake & Output 09/26/24 09/27/24 09/27/24 18:59 06:59 18:59 Weight 82.242 kg Laboratory Last Values Estimated Ave Glu mg/dL 117 mg/dL 09/27/24 07:57 Hemoglobin A1c 5.7 % (<=6.0) 09/27/24 07:57 Total Bilirubin 0.7 mg/dL (0.2-1.3) 09/27/24 07:57 Conjugated Bilirubin 0.0 mg/dL (0.0-0.3) 09/27/24 07:57 Unconjugated Bilirubin 0.7 mg/dL (0.0-1.1) 09/27/24 07:57 Delta Bilirubin 0.0 mg/dL (0.0-0.2) 09/27/24 07:57 AST 33 U/L (17-59) 09/27/24 07:57 ALT 21 U/L (4-49) 09/27/24 07:57 Alkaline Phosphatase 87 U/L (38-126) 09/27/24 07:57 Total Protein 6.5 g/dL (6.3-8.2) 09/27/24 07:57 Albumin 3.9 g/dL (3.5-5.0) 09/27/24 07:57 09/27/24 13:16 IDENTIFYING DATA: This patient is a 54-year-old male, currently , has 1 kid, he is unemployed, he lives in a three-quarter house recently kicked out HISTORY OF PRESENT ILLNESS: Patient was seen initially by poem writer for a psychiatric consultation "as per consultation note "the patient presented to the hospital petitioned by police. According to petition patient was making suicidal statements about wanting to jump off a bridge and endorsing depression, alcohol intoxication/abuse. Patient apparently told in the ER that he was feeling suicidal to jump in the river, blood alcohol level was 337. Patient apparently has an upcoming [facility] appointment for rehab. He was seen today laying in bed agreeable to speak to poem writer. He appeared to be disheveled in appearance, poor eye contact, vague evasive. Minimizing his depression. States that he has been feeling depressed, anxiety endorsing anxiety. States that he has a history of PTSD as well. Claims that he called the police because "I wanted to talk to somebody" and states that the police brought him into the hospital. He claims that he has been drinking about 18-20 beers a day. States that he was recently kicked out of the three-quarter house where he was staying at due to drinking. Claims that he is having an increase in his depression and anxiety. States that he is dealing with housing instability, also has improperly dealt with the grief from his mother's passing. At this time he is endorsing poor sleep, claims that he has a lot of dreams and nightmares, also endorsing poor appetite, minimizing his drinking at this time. At this time patient denies any current suicidal or homical ideations, intent or plan. Patient denies any auditory, visual hallucinations and denies any paranoia or delusions. Patients admits to using beer/alcohol as noted above. Claims that he started drinking at the age of 14, has been to rehab 12 times in the past. Denies any other recreational drug use. States that he is having withdrawal symptoms at this time, including shakes, anxiety and restlessness. Denies any history of DTs or withdrawal seizures" patient was seen today for psychiatric follow-up. He states that he still having serious withdrawals, claims that he is shaking, also "not feeling good". Also endorsing depression and anxiety. States that he is having a bit of a headache. He claims that he wants to get help and is going to take medications. We spoke about naltrexone which she is okay with for cravings. States that his sleep and appetite are poor. At this time he is denying any suicidal homicidal ideations intent or plan, denying any auditory or visual hallucinations. PAST PSYCHIATRIC HISTORY: Patient has a a history of depression, PTSD and alcohol use. He is currently on BuSpar and Effexor patient denies any previous psychiatric hospitalizations. Patient denies any psychiatric outpatient follow- up. Patient denies any history of suicide attempts in the past. Past Medical History: No Reported History Additional Past Medical History / Comment(s): ETOH abuse History of Any Multi-Drug Resistant Organisms: None Reported Past Surgical History: Hernia Repair, Orthopedic Surgery Additional Past Surgical History / Comment(s): eye surgery at 12 years, left inguinal hernia repair Past Anesthesia/Blood Transfusion Reactions: No Reported Reaction Past Psychological History: Anxiety, Depression Smoking Status: Never smoker Past Alcohol Use History: Abuse, Daily Past Drug Use History: None Reported ALLERGIES: as per EMR. CHEMICAL DEPENDENCY HISTORY: as per HPI. FAMILY PSYCHIATRIC/SUBSTANCE USE HISTORY: Denies SOCIAL HISTORY: Patient was born and raised in [facility]. Claims that he completed after the 10th grade in school. 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 Currently unemployed at this time, he is , he has 1 kid, he was recently kicked out of a three-quarter house. Claims that he went to residential about 4 times in the past for a DUI. MENTAL STATUS EXAM: General Appearance: Patient appears to be poor eye contact, disheveled appearance, stated age is alert, attempts to cooperate. Patient appears to have poor hygiene and grooming wearing hospital gown with improving eye contact. Behavior: Patient is calmly lying in bed without any agitated behavior. Somewhat guarded Speech: Patient's speech is fluent and nonpressured. [place], improving mildly Mood/Affect: Patient reports their mood is "depressed and anxious", affect is congruent and constricted Suicidality/Homicidality: Patient denies having any suicidal or homicidal ideation intent or plan. Perceptions: Patient denies any visual hallucinations and denies any auditory hallucinations Though content/process: There is no evidence of any delusional thought content and thought process is linear and goal-directed. Memory and concentration: AOX3, grossly intact for the purposes of this session. Can spell "WORLD" backwards Judgment and insight: Poor, improving mildly IMPRESSIONS: Major depressive disorder, without psychotic features Anxiety disorder severe dependence, currently in withdrawal History of PTSD STRENGTHS/WEAKNESSES: strength is that patient is resilient. Weakness is that patient has poor judgment and is impulsive INTELLECT: Average PLAN: -Patient is admitted under voluntary status to MHU for stabilization of psychiatric symptoms and safety. Patient has signed adult voluntary form and medication consent and is placed in patient's chart. -Medications : Naltrexone 50 mg daily for alcohol cravings, Effexor 150 mg daily for mood/anxiety, trazodone 50 mg nightly as needed for insomnia, Librium 25 mg 4 times daily for alcohol withdrawal, plan to taper. -Ativan and Haldol PRN for agitation/aggression -Started thiamine, MVM for etoh use -CIWA protocol with Ativan PRN for ETOH withdrawal. -Patient was counselled on substance abuse and desired to cut back on use, patient is currently waiting for [facility] bed once he is psychiatrically clear and discharged -Patient was informed of the risks, benefits and side effects of the medication and patient verbally consented to taking the medications. Patient signed med consent form and was placed in chart. -Internal Medicine consult to perform medical evaluation and physical. -NRT -nicotine patch -SW on board for discharge planning. Encourage patient to participate in groups to work on coping skills.
[2024-09-27 15:08] LABS: Chol/HDL Ratio 3.49 Ratio; LDL Cholesterol,Calculated 179.2 mg/dL (0.0-131.0); VLDL Calculation 19.76 mg/dL (5.00-40.00)
--- NOTE | 2024-09-27 15:13 | P.MDCNMH ---
History of Present Illness H&P Date: 09/27/24 This is a pleasant 54-year-old male who presented to the emergency department with alcohol intoxication and suicidal ideation for further psychiatric evaluation. Patient initially admitted to medicine for acute alcohol intoxication with concerns of acute alcohol withdrawal maintained on CIWA prot ocol. Patient clinically improved and evaluated by psychiatry meeting criteria for inpatient psychiatry admit. Patient voluntarily admitted to [facility] for continued ongoing psychiatric treatment and medication adjustments. Patient follows with Dr. Lalito Ray in the outpatient setting with a past medical history of asthma, anxiety, PTSD, former smoker, continued alcohol use, depression. Patient is a former smoker and denies illicit drug use and does admit to drinking. Patient reports he chews tobacco and a patch was offered as needed. On exam patient lung sounds are clear to auscultation with no shortness of breath or chest pains. Patient denies any palpitations. Patient does report he feels fatigued and somewhat nauseated with not much of an appetite. Will add as needed nausea medications and recommend to continue with current medication regimen. Patient is maintained on a Librium taper and recommend to continue with weaning. REVIEW OF SYSTEMS: CONSTITUTIONAL: No fever, no malaise, reports of fatigue. HEENT: No recent visual problems or hearing problems. Denied any sore throat. CARDIOVASCULAR: No chest pain, orthopnea, PND, no palpitations, no syncope. PULMONARY: No shortness of breath, no cough, no hemoptysis. GASTROINTESTINAL: No diarrhea, reports of intermittent nausea and not much of an appetite, no vomiting, no abdominal pain. NEUROLOGICAL: No headaches, no weakness, no numbness. HEMATOLOGICAL: Denies any bleeding or petechiae. GENITOURINARY: Denies any burning micturition, frequency, or urgency. MUSCULOSKELETAL/RHEUMATOLOGICAL: Denies any joint pain, swelling, or any muscle pain. ENDOCRINE: Denies any polyuria or polydipsia. The rest of the 14-point review of systems is negative. PHYSICAL EXAMINATION: GENERAL: The patient is alert and oriented x3, not in any acute distress. Well developed, well nourished. HEENT: Pupils are round and equally reacting to light. EOMI. No scleral icterus. No conjunctival pallor. Normocephalic, atraumatic. No pharyngeal erythema. No thyromegaly. CARDIOVASCULAR: S1 and S2 muffled PULMONARY: Diminished breath sounds bilaterally otherwise chest is clear to auscultation, no wheezing or crackles. ABDOMEN: Soft, nontender, nondistended, normoactive bowel sounds. No palpable organomegaly. MUSCULOSKELETAL: No joint swelling or deformity. EXTREMITIES: No cyanosis, clubbing, or pedal edema. NEUROLOGICAL: Gross neurological examination did not reveal any focal deficits. SKIN: No rashes. Assessment: Acute alcohol intoxication with acute alcohol withdrawal, maintained on Librium taper Depression with suicidal ideation history of asthma, not in exacerbation History of anxiety/depression/PTSD History of ongoing EtOH abuse GI prophylaxis Full code Plan: Patient was voluntarily admitted to [facility] for further psychiatric care and evaluation status post being cleared from medical floor for alcohol intoxication with acute alcohol withdrawal Continue Librium taper Home medications reviewed and resumed as appropriate Will add p.o. Zofran as patient is reporting nausea not much of an appetite Encouraged increase activity as tolerated and group therapy sessions attendance Thank you kindly for this consultation Patient was instructed to follow-up with primary care provider on discharge from [facility] The impression and plan of care has been dictated by Leann Pruitt, Nurse Practitioner as directed. Dr. Ramya MD I have performed a history and examination and MDM of this patient, discussed the same with the dictator, and agree with the dictator's assessment and plan as written ,documented as a scribe. Based on total visit time, I have performed more than 50% of the visit. Past Medical History Past Medical History: Asthma Additional Past Medical History / Comment(s): ETOH abuse History of Any Multi-Drug Resistant Organisms: None Reported Past Surgical History: Hernia Repair, Orthopedic Surgery Additional Past Surgical History / Comment(s): eye surgery at 12 years, left inguinal hernia repair, L tibia/fibula fx surgery with rods. R tibia/fibula fx surgery with rods 2019 Past Anesthesia/Blood Transfusion Reactions: No Reported Reaction Smoking Status: Former smoker - Past Family History Mother History Unknown: Yes Medications and Allergies Home Medications Medication Instructions Recorded Confirmed Type Venlafaxine HCl ER [Effexor XR] 150 mg PO DAILY 09/25/24 09/25/24 History busPIRone HCl [Buspar] 10 mg PO TID 09/25/24 09/25/24 History Pantoprazole [Protonix] 40 mg PO DAILY #30 tab 09/26/24 Rx Thiamine [Vitamin B-1] 100 mg PO DAILY tab 09/26/24 Rx chlordiazePOXIDE HCl [Librium] 25 mg PO TID cap 09/26/24 Rx Allergies Allergy/AdvReac Type Severity Reaction Status Date / Time No Known Allergies Allergy Verified 09/25/24 08:09 Physical Exam Vitals: Vital Signs Temp Pulse Resp BP Pulse Ox 09/27/24 06:06 91 132/75 09/26/24 22:37 98.0 F 74 16 135/96 97 Intake and Output 09/26/24 09/27/24 09/27/24 22:59 06:59 14:59 Other: Weight 82.242 kg Cranial Nerve Examination - Cranial Nerves Cranial Nerve I- Olfactory: Intact Cranial Nerve II- Optic: Intact Cranial Nerve III- Oculomotor: Intact Cranial Nerve IV- Trochlear: Intact Cranial Nerve V- Trigeminal: Intact Cranial Nerve - Abducens: Intact Cranial Nerve VII- Facial: Intact Cranial Nerve VIII- Auditory: Intact Cranial Nerve IX- Glossopharyngeal: Intact Cranial Nerve X- Vagus: Intact Cranial Nerve XI- Accessory: Intact Cranial Nerve XII- Hypoglossal: Intact Assessment and Plan Time with Patient: Less than 30
[2024-09-27] MEDS: chlordiazePOXIDE 25 MG CAP PO SCH (17:33)
[2024-09-27] MEDS: ONDANSETRON ODT 4 MG TAB PO PRN (21:47)
[2024-09-27] MEDS: LORazepam 1 MG TAB PO PRN (21:47)
[2024-09-28] MEDS: NALTREXONE HCL 50 MG TAB PO SCH (09:30)
[2024-09-28] MEDS: ACETAMINOPHEN TAB 325 MG TAB PO PRN (09:31)
--- NOTE | 2024-09-28 11:32 | P.PN ---
Progress Note - Text Progress Note Date: 09/28/24 Interval History: Patient was seen today laying in bed, agreeable to speak to administrative underwriter in the off ce. he claims that he is feeling a bit tired. we spoke about decreasing librium. he was fairly focused on discharge, was minimizing his need for hospitalization today. Claims that he can likely stay with a friend in [place] if he is released here early. We spoke about the need to decrease the Librium safely and monitor his withdrawal symptoms and his medications, he understood. He has been mainly keeping himself on the unit, not going to many groups. Endorsing some depression, mild anxiety. States that he slept fairly last night. Denying any suicidal homicidal ideations intent or plan, denying any auditory or visual hallucinations. MENTAL STATUS EXAM: General Appearance: Patient appears to be poor eye contact, stated age is alert, attempts to cooperate. Patient appears to have hygiene and grooming wearing hospital gown with improving eye contact. Behavior: Patient is calmly lying in bed without any agitated behavior. Somewhat guarded, improving mildly Speech: Patient's speech is fluent and nonpressured. [place], improving mildly Mood/Affect: Patient reports their mood is "getting better", affect is congruent and constricted, improving mildly Suicidality/Homicidality: Patient denies having any suicidal or homicidal ideation intent or plan. Perceptions: Patient denies any visual hallucinations and denies any auditory hallucinations Though content/process: There is no evidence of any delusional thought content and thought process is linear and goal-directed. concrete. Memory and concentration: AOX3, grossly intact for the purposes of this session Judgment and insight: Poor/superficial, improving mildly IMPRESSIONS: Major depressive disorder, without psychotic features Anxiety disorder severe dependence, currently in withdrawal History of PTSD PLAN: -Patient is admitted under voluntary status to MHU for stabilization of psychiatric symptoms and safety. Patient has signed adult voluntary form and medication consent and is placed in patient's chart. -Medications : Naltrexone 50 mg daily for alcohol cravings, Effexor 150 mg daily for mood/anxiety, trazodone 50 mg nightly as needed for insomnia, decrease Librium 20 mg 4 times daily for alcohol withdrawal, plan to taper. -Ativan and Haldol PRN for agitation/aggression -thiamine, MVM for etoh use -CIWA protocol with Ativan PRN for ETOH withdrawal -NRT -nicotine patch -SW on board for discharge planning. Encourage patient to participate in groups to work on coping skills. hopeful for discharge early next week, he still interested in going to rehab. awaiting intake date.
[2024-09-28] MEDS: IBUPROFEN 600 MG TAB PO PRN (13:38)
[2024-09-28] MEDS: busPIRone HCl 10 MG TAB PO SCH (22:20)
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
[2024-09-29 06:12] VITALS: TEMP 98.4
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
[2024-09-30] MEDS: traZODone HCL 50 MG TAB PO PRN (22:22)
[2024-10-01 08:19] VITALS: RESP 20
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
[2024-10-02 07:02] VITALS: BP 101/72; PULSE 75
[2024-10-02] MEDS ORDERED: traZODone HCL 100 MG TAB PO PRN (11:20)
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
== END 2024-10-02 15:40 | disposition home or self-care (01) | DRG 754 ==
LOC: 3MHU 21:14
PROVIDERS: ADMIT Psychiatry & Neurology Psychiatry; ATTEND Psychiatry & Neurology Psychiatry
PROC: HZ2ZZZZ Detoxification Services for Substance Abuse Treatment (ICD-10-PCS; principal; 2024-09-26)
DX: F32.9 Major depressive disorder, single episode, unspecified (principal); F41.9 Anxiety disorder, unspecified; F10.139 Alcohol abuse with withdrawal, unspecified; F10.129 Alcohol abuse with intoxication, unspecified; F43.10 Post-traumatic stress disorder, unspecified; J45.909 Unspecified asthma, uncomplicated; R45.851 Suicidal ideations; Y04.0XXA Assault by unarmed brawl or fight, initial encounter; S05.90XA Unspecified injury of unspecified eye and orbit, initial encounter; S02.2XXA Fracture of nasal bones, initial encounter for closed fracture; F17.200 Nicotine dependence, unspecified, uncomplicated; Y90.8 Blood alcohol level of 240 mg/100 ml or more; Z79.899 Other long term (current) drug therapy; Z71.41 Alcohol abuse counseling and surveillance of alcoholic; Z87.19 Personal history of other diseases of the digestive system
CPT/HCPCS: 70450; 70486; 80061; 80076; 83036